=== PATIENT | female | born 1960 | race Caucasian/White ===

== ENCOUNTER 2020-01-26 14:45 | Observation (INO) | payer OTHER, SELFPAY ==
[2020-01-23 14:11] VITALS: BMI 28.1
[2020-01-26] VITALS (14 sets, daily range): BP systolic 106–142; BP diastolic 71–94; PULSE 82–108; RESP 14–19; TEMP 36.5–36.9; O2SAT 93–100
[2020-01-26] MEDS: lidocaine 1% INJ 20 mL INTRADERMA (09:32)
[2020-01-26] MEDS: sodium chloride 0.9% 1,000 ML 30 ML IV (09:32)
--- NOTE | 2020-01-26 10:18 | ANES.PREANE2 ---
Pre-Anesthetic Assessment Pre-Anesthetic Assessment: Height/Weight: Height 1.7 m Weight 81.647 kg Temp Pulse Resp BP Pulse Ox 97.7 F 82 18 106/72 100 01/26/20 08:47 01/26/20 08:47 01/26/20 08:47 01/26/20 08:47 01/26/20 08:47 Preop Diagnosis: Intervertebral disc disorder wih myelopathy Proposed Procedure: Operation Date: 01/26/20 10:00 Proposed Procedures p Anterior Cervical Discecotmy&Fusion C5-C6 vs C5-C6, C6-C7 42047 M50.020(Not Applicable) - Duarte Barba MD Familial anesthetic complications: none Was Beta Debi taken within 24 hours: N/A Last intake: Intake Last Liquid Date 01/25/20 Last Liquid Time 23:30 Last Solid Date 01/25/20 Last Solid Time 23:30 Social: Social History: No alcohol and No tobacco Exam: Pre-Anes Outpt Exam: alert, oriented x 3, clear to auscultation bilaterally and regular rate & rhythm Airway: Cervical ROM: WNL MP: 3 Additional comments: missing molars top Left Pulmonary: Pulmonary: Sleep apnea (CPAP) CV/HEM: CV/HEM: None reported : : None reported Hepatic: Hepatic: None reported GI: GI: None reported Metabolic: Metabolic: Thyroid Musc/skel: Musc/skel: OA/DJD (generalized) Neuropsych: Neuropsych: None reported Anesthetic Plan: ASA status: 2 Anesthesia: General Risk of > 500 ml blood loss (7ml/kg in children): No Meds/Allergies Current Medications: Current Medications Generic Name Dose Route Start Last Admin Trade Name Freq PRN Reason Stop Dose Admin Sodium Chloride 1,000 mls @ 30 ml s/hr 01/26/20 08:45 01/26/20 09:32 Sodium Chloride 0.9% IV 01/27/20 08:44 30 mls/hr .Q24H ANY Administration Lidocaine HCl 0.1 ml 01/26/20 08:40 01/26/20 09:32 Lidocaine 1% INTRADERMA 01/27/20 08:39 0.1 ml PRN PRN Administration anesthetic prior to IV start Data Anesthesia Cardiac Studies: No Data to Display
--- NOTE | 2020-01-26 10:19 | W.PM.OPSUD ---
Surgery/Procedure H&P Update DATE OF PROCEDURE: January 26, 2020 DATE H&P PERFORMED: 12/29/19 H&P UPDATE INFORMATION: I have reviewed H&P completed within last 30 days and H&P to be scanned into chart PREOP DIAGNOSIS: Intervertebral disc disorder wih myelopathy PRIMARY INDICATION FOR PROCEDURE: Pain PLANNED PROCEDURE: Operation Date: 01/26/20 10:00 Proposed Procedures Anterior Cervical Discectomy/Fusion/fixation C5-C6, C6-C7 30684 M50.020(Not Applicable) - Duarte Barba MD
--- NOTE | 2020-01-26 10:48 | PM.OP2 ---
 Brief Operative Note: Date of procedure: 01/26/20 Pre-op diagnosis: Intervertebral disc disorder with myelopathy Post-op diagnosis: same Procedure Done: C5-C7 ACDFF Surgeon: Duarte Barba Estimated blood loss (mL): 50 Complications: None Post-op Plan: PACU, then jones Condition: stable Disposition: PACU Coding Level of Care Code Acute Director Of Field Sales for Deandra Reddy
--- NOTE | 2020-01-26 11:03 | XR_ITS ---
WS: [id number] INDICATION: Intraoperative TECHNIQUE: Single lateral view of the cervical spine FINDINGS: Endotracheal tube. Localization marker anteriorly at C4-5 XR/XR cervical spine 1ort [id number] IMPRESSION: Images obtained for intraoperative purposes.
--- NOTE | 2020-01-26 11:20 | XR_ITS ---
WS: [id number] INDICATION: ACDF TECHNIQUE: Single lateral view of the cervical spine FINDINGS: Endotracheal tube. Localization device anteriorly at C6 XR/XR cervical spine [facility] [id number] IMPRESSION: Images obtained for intraoperative purposes
[2020-01-26] MEDS: thrombin 5,000 unit SDV 5000 UNIT XX (11:25)
--- NOTE | 2020-01-26 12:24 | SUR.OPER ---
Tick pulled from inside of pt's left thigh. Head was intact. Area cleaned with betadine. 1127 - Pt's , Maksim, notified of surgery start via his cell phone.
--- NOTE | 2020-01-26 13:29 | SUR.OPER ---
1329 - attempted to update allan. Unable to reach him at this time.
--- NOTE | 2020-01-26 13:39 | XR_ITS ---
WS: [id number] CERVICAL SPINE TECHNIQUE: 3 views of the cervical spine CLINICAL INFORMATION: AP/LAT Post op Fusion COMPARISON: January 26, 2020 FINDINGS: Straightening of the normal cervical lordosis. Anterior cervical interbody fusion C5-C7. Hardware tamela ears in good position. Mild facet arthropathy. XR/XR cervical spine 3V* [id number] IMPRESSION: Normal postoperative anterior cervical interbody fusion C5-C7
[2020-01-26] MEDS: fentaNYL 50 mcg/mL INJ 2mL IVP (14:17)
[2020-01-26] MEDS: HYDROcodone-acetaminophen 5-325 mg Tablet PO (15:18)
[2020-01-26] MEDS: lactated ringers 1,000 ML 90 ML IV (15:44)
[2020-01-26] MEDS: ketorolac 30 mg/mL INJ 15 MG IVP (15:44)
--- NOTE | 2020-01-26 16:00 | PM.DCS ---
Discharge Providers Date of Admission: 01/26/20 14:45 Date of Discharge: January 26, 2020 Attending Provider at Admission: Duarte Barba MD Attending Provider at Discharge: Duarte Barba MD Primary Care Provider: Stephan Tovar MD Diagnoses at Discharge Discharge Diagnosis (1) Cervical disc disorder with myelopathy of mid-cervical region: Status: Acute (2) Instability of joint: Status: Acute Reason for Visit Reason for Visit: Reason For Visit: Cervical disc disorder with myelopathy of mid-cerv Brief History: The patient is a 59-year-old female with symptomatic, radiographically confirmed cervical disc/joint disease and associated neural impingement. Imaging studies demonstrated dominant abnormalities at C5-C6 and C6-C7. Conservative management did not provide adequate lasting symptom relief. After review of the diagnostic and treatment options with the risks/potential benefits/rationale for each, the patient requested to proceed with surgical intervention. Hospital Course Hospital Course: The patient underwent C5-C7 ACDFF on 01/26/2020. She tolerated the procedure well. She reported improvement in preoperative symptoms following surgery. She completed perioperative intravenous antibiotic doses, and the physical therapy postoperative spine protocol. She was ambulatory, voiding, and tolerating diet prior to discharge home on the evening of the date of surgery. Physical Exam Const: COMMON NORMALS: no apparent distress and alert GENERAL APPEARANCE: cooperative and comfortable HENMT: COMMON NORMALS: normocephalic HEAD & SCALP: normocephalic Eye: ALIGNMENT: Yes alignment normal Neck/C-Spine: COMMON NORMALS: supple and no JVD GENERAL: Yes trachea midline CERVICAL SPINE: Yes collar present Resp: COMMON NORMALS: normal respiratory effort EFFORT & INSPECTION: Yes able to speak in complete sentences, No tachypneic and No respiratory distress Cardio: COMMON NORMALS: no JVD Extremity: COMMON NORMALS: no clubbing, cyanosis or edema Neuro: COMMON NORMALS: moves all extremities and no focal motor deficits SENSORIUM/ORIENTATION: Yes alert SPEECH: speech normal Psych: COMMON NORMALS: mental status grossly normal and speech normal ATTITUDE: Yes calm and Yes engaged ACTIVITY/MOTOR BEHAVIOR: Yes appropriate eye contact SPEECH: Yes normal speech MOOD & AFFECT: Yes euthymic mood ATTENTION/CONCENTRATION: Yes attention grossly intact Skin: WOUNDS: Yes surgical site (Left anterolateral neck surgical site without erythema or active drainage. Surgical site dressing clean/dry/intact.) Urinary Catheter Management^: Heart: Cath Placed During This Visit: yes, but has since been removed by the nurse Urinary Catheter Date of Insertion: 01/26/20 Urinary Catheter Time of Insertion: 11:15 Date Urinary Catheter Removed: 01/26/20 Time Urinary Catheter Discontinued: 13:36 Discharge Data Data Completed and Pending: Completed Studies During Hospitalization Category Date Time Status XR cervical spine 1Vport 29994 Rout ine Exams 01/26/20 11:03 Completed XR cervical spine 1Vport 34429 Rout ine Exams 01/26/20 11:20 Completed XR cervical spine 3V* [id number] Routine Exams 01/26/20 13:39 Completed Pathology: Surgic al [PTH] Routine Pth 01/26/20 12:29 Completed Imaging^: Other Xray: Radiologist's impression: CERVICAL SPINE TECHNIQUE: 3 views of the cervical spine FINDINGS: Straightening of the normal cervical lordosis. Anterior cervical interbody fusion C5-C7. Hardware appears in good position. Mild facet arthropathy. Procedures Performed: C5-C6, C6-C7 anterior cervical discectomy/fusion/fixation. Intravenous antibiotics. Physical therapy. Vitals: Last Vital Signs Temp 98.0 F 01/26/20 19:39 Pulse 85 01/26/20 19:39 Resp 17 01/26/20 19:39 BP 113/72 01/26/20 19:39 Pulse Ox 95 01/26/20 19:39 Discharge Plan Discharge Patient Disposition: Home, Self-Care Condition: Good Prescriptions: [place] 7.5-325 mg tablet 1 tab PO Q4H PRN (Reason: pain) Qty: 30 RF: 0 No Action No Known Home Medications RF: 0 Discharge Orders: Discharge Order (Routine); Ordered 01/26/20 Ordered By: Duarte Barba Referrals: Duarte Barba MD [Physician] - 2 weeks (Please call Dr. Nelson office to schedule a post surgical followup to be seen in 2 weeks. [phone]) Discharge Diet: Advance as tolerated Discharge Activity: Limit activity as instructed and As per PT/OT instructions Patient Instructions: Hydrocodone/Acetaminophen (By mouth), Anterior Cervical Discectomy (DC) Activity Restrictions/Additional Instructions: Activity -Cervical fusion: Wear cervical collar 24 hours a day. Change as necessary for showering, shaving, or if it becomes soiled. -No lifting or reaching overhead. - No driving until office followup visit - No lifting/pushing/pulling over 10 pounds - Avoid twisting or bending - Walking is encouraged - Home exercise per physical therapist - You may engage in sexual intercourse at any time as long as it is comfortable for you - Check with your doctor before returning to work. Notify your doctor if you develop: - temperature of 101.5 degrees F. or higher - redness or swelling of the incision - Foul drainage - increasing pain - increasing numbness or tingling in the arms or legs - New or increasing problems with vision, balance, memory, speaking, nausea or vomiting Hygiene: - Showering is okay - No tub baths or soaking Other: Remove outer bandage 3 days after surgery. If you have paper strips, leave in place until they fall off on their own. If you have stitches, keep your incision dry until the stitches are removed. Your doctor's office is available to answer any questions from 7 AM to 5:00 PM, Sunday through at [phone]. After hours, go to the emergency room at [facility] or call 911 for assistance. Discharge Date/Time: 01/26/20 19:40 Discharge Attestations Time Spent in Discharge Care*: other (Postop global) Quality Metrics Clinical Quality Measures During this hospital stay, did patient experience: None Coding Level of Care Code Acute Air Pollution Inspector for Deandra Fwd Exam Comprehensive Diagnoses Cervical disc disorder with myelopathy of mid-cervical region M50.020 Instability of joint M25.30 Comment Postop global
--- NOTE | 2020-01-26 16:51 | PC.NURSE ---
FLU SHOT PT WANTED FLU SHOT THIS YEAR SO WAS GIVEN FLU SHOT IN RIGHT DELTOID.
--- NOTE | 2020-01-26 16:57 | PM.OP ---
Operative Report Date of procedure: January 26, 2020 Pre-op Diagnosis: Intervertebral disc disorder wih myelopathy Post-op diagnosis: same (With instability of joint) Procedure Done: 1. C5-C6, C6-C7 anterior cervical discectomy, with osteophytectomy. 2. C5-C6, C6-C7 anterior cervical plate/screw fixation. 3. C5-C6, C6-C7 placement of intervertebral prosthetic devices. 4. C5-C6, C6-C7 anterior cervical fusion utilizing augmented, morselized autograft obtained from osteophytectomy. Implants: ACIS ProTi Spacers. [employer] Vectra plate/screws. [employer] Moldable Demineralized Fibers. Specimens removed/disposition: C5-C6, C6-C7 disc Pathology: Disc fragments Surgeon: Duarte Barba Anesthesia: General Estimated blood loss (mL): 50 IV fluids (mL): 600 Urine output (mL): 400 Complications: None. Condition: stable Disposition: PACU Brief History: The patient is a 59-year-old female with symptomatic, radiographically confirmed cervical disc/joint disease and associated neural impingement. Imaging studies demonstrated dominant abnormalities at C4-C5 and C5-C6. Conservative management did not provide adequate lasting symptom relief. After review of the diagnostic and treatment options with the risks/potential benefits/rationale for each, the patient requested to proceed with surgical intervention. Procedure: After routine preoperative evaluation and informed consent were obtained, the patient was taken to the Operating Room and positioned supine on the OR table. She was placed under general endotracheal anesthesia by Anesthesia personnel, and fit in the [facility] tongs for the application of in-line cervical traction. The anterolateral neck on the left was prepared with hair clippers. A proposed transverse skin incision was marked with a sterile skin marker, utilizing intraoperative radiography and regional anatomy for localization. The area was scrubbed with Betadine, prepped with DuraPrep, and draped with sterile towels and drapes. [place] surgical barrier was applied. The proposed incision site was infiltrated with 1% Xylocaine with Epinephrine. A skin incision was made and carried down into the subcutaneous tissues. The platysma was identified and divided in the direction of its fibers. A plane was dissected just medial to the carotid sheath and lateral to the midline esophagus and trachea. Prevertebral soft tissues were bluntly dissected free of the anterior margin of the cervical spine. Longus coli muscles were freed from their medial attachments. Deep self-retaining retractors were placed. Intraoperative radiography verified the desired surgical levels. The C5-C6 and C6-C7 interspaces were sequentially incised with a #11 blade. Discectomies were accomplished utilizing various curettes and pituitary rongeurs. Anterior marginal osteophytes were resected with the [place] and Kerrison rongeurs. Cartilaginous end plates were stripped free with curettes. Posterior marginal osteophytes were resected with thin foot plate Kerrison rongeurs. The medial aspect of each neural foramen was enlarged in a similar manner. Posterior longitudinal ligament was divided and resected as necessary to further the decompression. Symmetrical neural impingement was identified at C5-C6, with dominant C6-C7 abnormalities noted on the left. Once the decompressions were felt to be adequate at both levels, the disc spaces were sized. A 7 mm ACIS ProTi lordotic/medium Spacer was chosen for C5-C6. Another Spacer of the same size and configuration was chosen for C6-C7. The Spacers were packed with morselized autograft obtained from the osteophytectomy portions of the procedure. [employer] moldable demineralized fibers were utilized to augment the morselized autograft allowing complete filling of the prosthetic devices. The Spacers were sequentially placed within the C5-C6 and C6-C7 interspaces, while in-line cervical traction was applied via the Zhang-Wells tongs. Once the Spacers were felt to be in good position, a [employer] Vectra plate of the desired size was chosen. The plate was secured to the C5, C6, and C7 vertebral bodies with bilateral 4 mm x 14 mm self-drilling screws. Final screw tightening was performed, and the locking mechanisms within the plate were noted to engage the screws at each site. The construct was inspected and felt to be in good position and secure. The wound was copiously irrigated with sterile saline and antibiotic irrigation. Hemostasis was ensured with the bipolar electrocautery and S[employer]lo hemostatic matrix. Wound closure was performed in multiple layers with 2-0 Vicryl Plus simple interrupted closure of the platysma and deep dermis as separate layers. Final skin closure was performed with 4-0 Vicryl Plus in a running subcuticular pattern. Steri-Strips were applied, and a sterile dressing was placed. The patient was released from the Zhang-Wells tongs and fit in a [place] collar. She was transferred onto the Recovery Room cart in the supine position. She was extubated without incident. The patient tolerated the procedure well. All sponge, needle, and instrument counts were correct at the completion of the procedure.
[2020-01-26] MEDS: docusate sodium 100 mg Capsule PO (18:05)
--- NOTE | 2020-01-26 19:15 | PC.NURSE ---
DISCHARGE Patient was given discharge orders before this nurse arrived on shift, IV antibiotics finished at this time. IV discontinued and in room helping patient get dressed.
--- NOTE | 2020-02-09 12:44 | XR_ITS ---
WS: [id number] CERVICAL SPINE 2 VIEWS HISTORY: s/p cervical spinal fusion COMPARISON: 01/26/2020 Anterior cervical fusion hardware extends from C5 through C7. Interbody spacers at C5-6 and C6-7 with no fusion at this time. No subsidence. No complications. Disc spaces and vertebral body heights are well-maintained. Soft tissues are normal.
== END 2020-01-26 19:40 | disposition home or self-care (01) ==
LOC: MEDSURG 14:46
PROVIDERS: Admitting Provider Specialist; Family Provider Family Medicine; PCP Family Medicine; Visit Provider Specialist
PROC: 0RB30ZZ Excision of Cervical Vertebral Disc, Open Approach (ICD-10-PCS; CPT 22551; principal; 2020-01-26 09:55)
DX: M50.822 Other cervical disc disorders at C5-C6 level (principal); E03.9 Hypothyroidism, unspecified; E11.9 Type 2 diabetes mellitus without complications; Z79.4 Long term (current) use of insulin; G47.33 Obstructive sleep apnea (adult) (pediatric); E66.9 Obesity, unspecified; G47.10 Hypersomnia, unspecified; F32.9 Major depressive disorder, single episode, unspecified; F41.9 Anxiety disorder, unspecified; M19.90 Unspecified osteoarthritis, unspecified site
CPT/HCPCS: 22551; 22552; 22853 ×2; 12345; 51702; 72020; 72040; 88304; 90471; 90686; 96375; 97161; C1713; G0378; J0690; J1100; J1885; J2001; J2370; J2405; J2704; J3010; J3490; J7030; L0172

== ENCOUNTER 2020-02-09 12:36 | Outpatient (CLI) | payer OTHER, SELFPAY ==
--- NOTE | 2020-02-09 13:48 | XR_ITS ---
WS: [id number] CERVICAL SPINE 2 VIEWS HISTORY: s/p cervical spinal fusion COMPARISON: 01/26/2020 Anterior cervical fusion hardware extends from C5 through C7. Interbody spacers at C5-6 and C6-7 with no fusion at this time. No subsidence. No complications. Disc spaces and vertebral body heights are well-maintained. Soft tissues are normal. XR/XR cervical spine 3V* [id number] IMPRESSION: Intact and stable anterior cervical fusion with interbody spacers from C5 to C7 .
== END 2020-02-09 12:37 | disposition home or self-care (01) ==
LOC: RADWPI 12:38
PROVIDERS: Family Provider Family Medicine; PCP Family Medicine; Visit Provider Specialist
DX: Z98.1 Arthrodesis status (principal); M43.22 Fusion of spine, cervical region
CPT/HCPCS: 72040

== ENCOUNTER 2020-03-08 15:09 | Outpatient (CLI) | payer OTHER, SELFPAY ==
--- NOTE | 2020-03-08 15:13 | XR_ITS ---
WS: [id number] CERVICAL SPINE 2 VIEW HISTORY: s/p cervical spinal fusion. COMPARISON: 02/09/2020 Anterior cervical fusion at C5-C7. Hardware and interbody spacers remains in good position with no in terval change. No subsidence. No lucency around the hardware. XR/XR cervical spine 3V* [id number] IMPRESSION: Anterior cervical fusion at C5-C7 with interbody spacers is stable.
== END 2020-03-08 15:10 | disposition home or self-care (01) ==
LOC: RADWPI 15:11
PROVIDERS: Family Provider Family Medicine; PCP Family Medicine; Visit Provider Licensed Practical Nurse
DX: Z98.1 Arthrodesis status (principal); M43.22 Fusion of spine, cervical region
CPT/HCPCS: 72040

== ENCOUNTER 2020-03-22 13:15 | Outpatient (CLI) | payer OTHER, SELFPAY ==
--- NOTE | 2020-03-22 13:30 | CT_ITS ---
WS: [id number] CT cervical spin wo con* [id number] REASON FOR EXAM: s/p cervical spinal fusion IV CONTRAST ADMINISTERED: none TOTAL EXAM DLP: 646.[address] scans at [facility] use at least one of these dose optimization techniques: automat ed exposure control; mA and/or kV adjustment per patient size (includes targeted exams where dose is matched to clinical indication); or iterative reconstruction. FINDINGS: The left occipital patellar suggesting a remote fracture. This healing good alignment. The odontoid process was normal. C1-C2 :Normal anatomical findings. C2-C3 shows mild hypertrophy of the uncovertebral joint on the right exiting foramina were normal no fractures no disc bulge or herniation. C3-C4 shows hypertrophy of the right uncovertebral joint no foraminal stenosis no disc bulge or herni ation. No fractures. C4-C5: Normal vertebral alignment. Exiting foramina normal. No disc bulge or herniation. No spinal st enosis. Anterior fusion C5-C6-C7 with intraspinal fusion. No fractures are seen. C7-T1 normal vertebral alignment. Exiting foramina normal. No disc bulge or herniation. No spinal coleman nosis. CT/CT cervical spin wo con* [id number] IMPRESSION: A remote fracture is suspected along the occipital fibular on the left this is in good alignment. Degenerated of arthritis with uncovertebral C2-C3, C3-4 Stable fusion anteriorly C5-C6-C7. No fractures of the cervical spine recent.
== END 2020-03-22 13:16 | disposition home or self-care (01) ==
LOC: RAD 13:17
PROVIDERS: PCP Family Medicine; Visit Provider Licensed Practical Nurse
DX: Z98.1 Arthrodesis status (principal); M43.22 Fusion of spine, cervical region
CPT/HCPCS: 72125

== ENCOUNTER → 2020-08-18 14:08 | Outpatient (BNVA) | payer OTHER, SELFPAY | PROVIDERS: PCP Family Medicine; Referring Provider Family Medicine; Visit Provider Orthopaedic Surgery | DX: M17.12 Unilateral primary osteoarthritis, left knee (principal); Z96.651 Presence of right artificial knee joint | CPT/HCPCS: 73560; 73565 ==

== ENCOUNTER → 2020-09-29 11:11 | Day surgery (SDC) | payer OTHER, SELFPAY ==
[2020-09-29 11:25] VITALS: BMI 28.1
--- NOTE | 2020-09-29 13:04 | ANES.PREANE2 ---
Pre-Anesthetic Assessment Pre-Anesthetic Assessment: Height/Weight: Height 1.7 m Weight 81.647 kg Preop Diagnosis: Intervertebral disc disorder wih myelopathy Proposed Procedure: Operation Date: 10/04/20 12:10 Proposed Procedures p Total Knee Arthroplasty 00698 M17.12(Left) - Juan Lubin MD Was Beta Debi taken within 24 hours: N/A Social: Social History: No alcohol and No tobacco Exam: Pre-Anes Outpt Exam: alert, oriented x 3, clear to auscultation bilaterally and regular rate & rhythm Airway: Submandibular: WNL Cervical ROM: WNL MP: 2 Dentition: Full Pulmonary: Pulmonary: None reported CV/HEM: CV/HEM: None reported : : None reported Hepatic: Hepatic: None reported GI: GI: None reported Metabolic: Metabolic: None reported Musc/skel: Comments: Knee pain Neuropsych: Neuropsych: Depression Anesthetic Plan: ASA status: 2 Anesthesia: Regional (specify below) Other: SAB with adductor canal blk Risk of > 500 ml blood loss (7ml/kg in children): Yes, adequate IV access and fluids planned PFSH Anesthesia PFSH: Medical History Cervical disc disorder with myelopathy of mid-cervical region Instability of joint Post-operative state Surgical History History of cervical spinal surgery (~2019) 01/26/2020 Dr. Lauren Barba. 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
[2020-10-04 11:40] VITALS: BP 141/84; PULSE 72; RESP 18; TEMP 36.4; O2SAT 98
[2020-10-04] MEDS: sodium chloride 0.9% 1,000 ML 30 ML IV (12:34)
[2020-10-04] MEDS: oxyCODONE 20 mg ER (12 HR) Tablet PO (12:35)
[2020-10-04] MEDS: CELEcoxib 200 mg Capsule PO (12:36)
[2020-10-04] MEDS: acetaminophen 500 mg Tablet 1000 MG PO (12:36)
[2020-10-04] MEDS: gabapentin 300 mg Capsule PO (12:36)
--- NOTE | 2020-10-04 12:37 | P.ANESUD_ITS ---
Pre-Anesthetic Update Pre-Anesthetic Assessment: Date of Surgery/Procedure: 10/04/20 Preop Lucía gnosis: Osteoarthritis left knee Proposed Procedure: Operation Date: 10/04/20 12:10 Proposed Procedures p Total Knee Arthroplasty 70071 M17.12(Left) - Juan Lubin MD Any changes to Pre-Anesthetic Assessment?: No Last Intake: Intake Last Liquid Date 10/03/20 Last Liquid Time 23:00 Last Solid Date 10/03/20 Last Solid Time 23:00 Vitals: Temperature 97.5 F L 10/04/20 11:40 Temperature Source Temporal Artery S can 10/04/20 11:40 Pulse Rate 72 10/04/20 11:40 Pulse Rhythm 10/04/20 11:41 Pulse Strength 3+ Normal 10/04/20 11:41 Respiratory Rate 18 10/04/20 11:40 Blood Pressure 141/84 10/04/20 11:40 Blood Pressure Lori n 103 10/04/20 11:40 Pulse Oximetry 98 10/04/20 11:40 Oxygen Delivery Me thod 10/04/20 11:41 Exam: Pre-Anes Outpt Exam: alert, oriented x 3, clear to auscultation bilaterally and regular rate & rhythm Cardiac Studies: No Data to Display
--- NOTE | 2020-10-04 14:48 | SUR.OPER ---
Dr Lubin into talk with patient and family. Surgery to be cancelled due to no post op floor beds.Patient agrees to return tomorrow 05:30am for re scheduled surgery. IV dc'ed and patient left ambulatory with family.
== END ==
PROVIDERS: PCP Family Medicine; Visit Provider Orthopaedic Surgery
PROC: (CPT 27447; principal; 2020-10-04 11:40)
DX: Z01.818 Encounter for other preprocedural examination (principal); M17.12 Unilateral primary osteoarthritis, left knee
CPT/HCPCS: 64450; 87635; J2250; J2370; J2405; J2704; J2795; J3490; J7030

== ENCOUNTER 2020-10-05 15:13 | Observation (INO) | payer OTHER, SELFPAY ==
[2020-10-05] VITALS (14 sets, daily range): BP systolic 107–126; BP diastolic 68–84; PULSE 64–90; RESP 11–30; TEMP 36.1–36.5; O2SAT 76–99; BMI 28.1
[2020-10-05] MEDS: acetaminophen 500 mg Tablet 1000 MG PO (06:16)
[2020-10-05] MEDS: CELEcoxib 200 mg Capsule 400 MG PO (06:16)
[2020-10-05] MEDS: gabapentin 300 mg Capsule PO (06:16)
[2020-10-05] MEDS: lidocaine 1% INJ 20 mL INTRADERMA (06:17)
[2020-10-05] MEDS: sodium chloride 0.9% 1,000 ML 30 ML IV (06:17)
[2020-10-05] MEDS: oxyCODONE 20 mg ER (12 HR) Tablet PO (06:17)
--- NOTE | 2020-10-05 06:50 | W.PM.OPSFHP ---
Same Day Surgery H&P Indication for Procedure/HPI DATE OF PROCEDURE: October 05, 2020 CHIEF COMPLAINT/INDICATIONFOR SURGICAL PROCEDURE: 60-year-old female with osteoarthritis of the left knee. She had a distant history of a right total knee arthroplasty and did well. She has ongoing left knee pain that has been resistant to conservative care including physical therapy, anti-inflammatories, and injections.. She is admitted for elective left total knee arthroplasty to improve pain and function. Her is a physical therapist here at the hospital. PREOP DIAGNOSIS: Osteoarthritis left knee PLANNED PROCEDRUE: Operation Date: 10/05/20 07:30 Proposed Procedures p Total Knee Arthroplasty 82166, M17.12(Left) - Juan Lubin MD Medications/Allergies* Home Medications Medication Instructions Recorded Confirmed Type escitalopram oxalate 20 mg tablet 20 mg PO DAILY 08/18/20 10/05/20 History Allergies/Adverse Reactions Allergy/AdvReac Type Severity Reaction Status Date / Time Penicillins Allergy Intermediate rash Verified 09/29/20 11:30 morphine AdvReac Intermediate can't void Verified 09/29/20 11:30 promethazine [From Phenergan] AdvReac Intermediate vomiting Verified 09/29/20 11:30 Current Medications: Generic Name Dose Route Start Last Admin Trade Name Freq PRN Reason Stop Dose Admin Sodium Chloride 1,000 mls @ 30 mls/hr 10/05/20 06:00 10/05/20 06:17 Sodium Chloride 0.9% IV 30 mls/hr .Q24H ANY Administration Pertinent History/Comorbid Conditions* Medical History (Updated 03/13/20 @ 17:34 by Paloma Mcgill APRN) Cervical disc disorder with myelopathy of mid-cervical region Instability of joint Post-operative state Surgical History (Updated 03/13/20 @ 17:47 by Paloma Mcgill APRN) History of cervical spinal surgery (~2019) 01/26/2020 Dr. Lauren Barba. 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
--- NOTE | 2020-10-05 07:04 | P.ANESUD_ITS ---
Pre-Anesthetic Update Pre-Anesthetic Assessment: Date of Surgery/Procedure: 10/05/20 Preop Lucía gnosis: Osteoarthritis left knee Proposed Procedure: Operation Date: 10/05/20 07:30 Proposed Procedures p Total Knee Arthroplasty 12437, M17.12(Left) - Juan Lubin MD Any changes to Pre-Anesthetic Assessment?: No Last Intake: Intake Last Liquid Date 10/04/20 Last Liquid Time 23:00 Last Solid Date 10/04/20 Last Solid Time 23:00 Vitals: Temperature 97.7 F 10/05/20 05:54 Temperature Source Temporal Artery S can 10/05/20 05:54 Pulse Rate 67 10/05/20 05:54 Pulse Rhythm 10/05/20 05:47 Pulse Strength 3+ Normal 10/05/20 05:47 Respiratory Rate 18 10/05/20 05:54 Blood Pressure 116/75 10/05/20 05:54 Blood Pressure Lori n 88 10/05/20 05:54 Pulse Oximetry 95 10/05/20 05:54 Oxygen Delivery Me thod 10/05/20 05:54 Exam: Pre-Anes Outpt Exam: alert, oriented x 3, clear to auscultation bilaterally and regular rate & rhythm Cardiac Studies: No Data to Display
--- NOTE | 2020-10-05 07:40 | ANES.PROC ---
Anesthesia Procedures Procedure/Date: 10/05/20 Nerve Block ^: Nerve Block 1: Main Anesthesia: spinal anesthesia block Time Out Performed: Yes Consent: requested by attending/covering physician, risks and benefits reviewed and patient agrees to proceed Nerve block location: adductor canal Anesthesia monitors applied: pulse oximetry, EKG, BP cuff and oxygen Nerve block position: supine Anesthetic Used: ropivicaine 0.5% Amount of anesthesia used (mL): 20 Ultrasound used to: recognize landmarks Nerve Stimulator Used?: No Interscalene/Femoral BLK: 4 stimuplex 21 g needle used for position and inplane approach Patient Tolerated Procedure: well Complications: none
[2020-10-05] MEDS: EPINEPHrine 1 mg/mL INJ XX (07:54)
[2020-10-05] MEDS: ketorolac 30 mg/mL INJ IM (07:54)
--- NOTE | 2020-10-05 09:22 | XRR_ITS ---
PROCEDURE INFORMATION: Exam: XR Left Knee Exam date and time: 10/05/2020 9:35 AM Age: 60 years old Clinical indication: Device placement; Joint replacement hardware; Patient HX: Left total knee arthroplasty post op TECHNIQUE: Imaging protocol: XR Left knee. Views: 1 or 2 views. COMPARISON: CR XR knees AP WB w BI lmt ORTH 08/18/2020 2:14 PM FINDINGS: Bones/joints: The patient has undergone recent insertion of a total knee prosthesis. Gas is present in the soft tissues from the recent surgery. No fractures are seen. The position and alignment appears satisfactory. Soft tissues: See Bones/joints finding. XR/XR knee LT 1-2V [id number] IMPRESSION: Satisfactory appearance of the total knee prosthesis.
[2020-10-05] MEDS: meperidine 50 mg/mL INJ IVP (09:23)
--- NOTE | 2020-10-05 09:25 | PM.OP ---
Operative Report Date of procedure: October 05, 2020 Pre-op Diagnosis: Osteoarthritis left knee Post-op diagnosis: same Post-op Findings: Same Procedure Done: Left total knee arthropod Pathology: none sent Surgeon: Juan Lubin Anesthesia: Nerve Block (Spine) Estimated blood loss (mL): 200 Findings: The patient had severe eburnation over the medial femoral condyle medial tibial plateau and patella Condition: stable Disposition: PACU Procedure: The patient was taken to the operating room. Patient was given 1 g of tranexamic acid . The above anesthesia provided by the anesthesia service. A timeout was performed. The patient was prepped and draped in the usual fashion with the lower extremity exposed. A anterior incision was made, midline, from a point proximal to the patella to the distal tibial tubercle. The knee was entered through a medial parapatellar approach. The patella could be displaced laterally and the knee flexed. The patellar fat pad was resected to provide better visibility. Retractors were placed medially and laterally adjacent to the tibial plateau. The femoral canal was drilled in line with the longitudinal axis of the femur. Intramedullary femoral guide for used to make a distal femoral cut in 5 degrees of valgus, resecting 8 mm from the more prominent condyle. Next the extra medullary tibial guide was placed in alignment with the longitudinal axis of the tibia. The cutting guides were set to remove just over 9 mm from the high tibial plateau. The proximal tibia was then cut. The femoral measuring guide was then placed over the distal femur. Rotation was verified checking the relationship of the guide to the condyle and the trochlear groove. The femur was measured and cut for the desired femoral component. The desired tibial baseplate was then chosen. A trial reduction with the femur tibial baseplate and polyethylene was done, assuring that the knee was stable throughout full motion. Ligament balancing nothing more than a release of the deep medial collateral ligament and medial osteophytes.The tibia was prepared for the tibial baseplate. Patellar thickness was then measured. The patella was cut removing articular cartilage and prepared for appropriate size patellar button. All surfaces were cleaned with pulsatile lavage. The femur tibia and patella were then press-fit into place. The posterior capsule and collateral ligaments were then injected with a solution of 100 mL of 0.2% ropivacaine, 1 mL of a 1:1000 epinephrine solution, and 30 mg of Toradol. Final polyethylene component was then snapped into place into the tibia. 2 grams of tranexamic acid were applied to the wound. The tourniquet was deflated. The tranxanemic acid was left contact with the knee for 5 minutes before the knee was irrigated with saline. The extensor retinaculum was closed with 1 STratafix Quill. The subcutaneous tissues were closed with 2-0 Vicryl and the skin was closed with running 3 oh Stratafix Quil. A compressive tube gauze was applied.. The patient was taken to recovery room in stable condition. [employer] total knee arthroplasty components were used includin) Size 5 Triathalon cruciate retaining femoral component 2) Size 5 Tritanium tibial component 3) 32 mm /10 mm thickness Tritanium asymetric patella 4) Size 5/9 mm thickness CR tibial bearing insert
--- NOTE | 2020-10-05 09:30 | ANE.PACU2 ---
Inpatient post-anesthesia follow up: Airway intact: Yes Vital signs: Temperature 97.1 F Pulse Rate 77 Respiratory Rate 16 Blood Pressure 123/82 Pulse Oximetry 97 Oxygen Delivery Me thod Room Air Oxygen Flow Rate Fraction of Inspir ed Oxygen Hydration adequate: Yes Nausea and vomiting: No Pain level: 1 Additional Comments: sedated
--- NOTE | 2020-10-05 10:05 | SUR.PHASEII ---
holding patient until room available. Patient is to be in observartion then go home later today.
--- NOTE | 2020-10-05 11:03 | PC.OT ---
PER DISCUSSION WITH SPOUSE AND PATIENT, SHE IS INDEPENDENT WITH ADLS AND DOES NOT REQUIRE FURTHER SKILLED OT.
[2020-10-05] MEDS: ondansetron 2 mg/ML SDV 2 mL 4 MG IVP (12:13)
--- NOTE | 2020-10-05 13:53 | PM.DCS ---
Discharge Providers Date of Discharge: October 05, 2020 Attending Provider at Discharge: Juan Lubin MD Primary Care Provider: Stephan Tovar MD Diagnoses at Discharge Discharge Diagnosis (1) Status post left knee replacement: Status: Acute (2) Osteoarthritis of left knee: Status: Acute Reason for Visit Reason for Visit: Brief History: Elective left total knee arthroplasty Hospital Course Hospital Course The patient is a 60-year-old female who underwent elective left total knee arthroplasty on 10/05/2020. The day of surgery she did very well. She was up independent without therapy. She was begun on aspirin for deep venous thromboses. She remained hemodynamically stable and was tolerating a good oral diet. She was discharged home. Her is a physical therapist will assist with her rehab. Physical Exam Narrative: EXAM NARRATIVE: On the day of discharge his knee incision was clean. They had no drainage. There is minimal swelling in the thigh and knee and the calf. No distal neurovascular deficits were noted Discharge Data Data Completed and Pending: Completed Studies During Hospitalization Category Date Time Status XR knee LT 1-2V 7 3560 Routine Exams 10/05/20 09:22 Completed Pending at discharge Category Date Time Status Hemoglobin AM LAB S Lab 10/06/20 04:00 Ordered Vitals: Last Vital Signs Temp 97.7 F 10/05/20 12:31 Pulse 66 10/05/20 12:31 Resp 18 10/05/20 12:31 BP 107/68 10/05/20 12:31 Pulse Ox 96 10/05/20 12:31 Discharge Plan Discharge Patient Disposition: Home Condition: Stable Prescriptions: New oxycodone 5 mg Tablet 5 mg PO Q4H PRN (Reason: Moderate Pain) 7 Days Qty: 40 RF: 0 aspirin 325 mg Tablet,Delayed Release (Dr/Ec) 325 mg PO DAILY 30 Days Qty: 30 RF: 0 celecoxib 200 mg Capsule 200 mg PO Q12H 15 Days Qty: 30 RF: 0 gabapentin 300 mg Capsule 300 mg PO BID 15 Days Qty: 30 RF: 0 Continued escitalopram oxalate [Lexapro] 20 mg tablet 20 mg PO DAILY RF: 0 Discontinued mupirocin 2 % ointment 1 applic topical BID Qty: 22 RF: 0 Discharge Orders: Discharge Order (Routine); Ordered 10/05/20 Ordered By: Juan Lubin Referrals: Juan Lubin MD [Physician] - 2 weeks Discharge Diet: Advance as tolerated Discharge Activity: Limit activity as instructed Activity Restrictions/Additional Instructions: Discontinue knee dressing in 48 hours. Replaced dressings as needed. Okay to begin showering in 48 hours. Keep Tubigauze sleeve in place for swelling Apply FirstIce up to 20 min/hr for pain and swelling Take Celebrex twice a day for the next 15 days for pain , discontinue other anti-inflammatories Take Neurontin twice a day for 15 days. Take Tylenol 325mg (up to 3 tabs) 3 times a day for mild pain take oxycodone for breakthrough pain. Exercises per physical therapy. May weight-bear as tolerated on total knee arthroplasty Discharge Attestations Time Spent in Discharge Care*: other Quality Metrics Clinical Quality Measures During this hospital stay, did patient experience: None Coding Level of Care Code Acute Assembler Convertible Top for Deandra Reddy Diagnoses Status post left knee replacement Z96.652 Osteoarthritis of left knee M17.12
== END 2020-10-05 17:04 | disposition home or self-care (01) ==
LOC: MEDSURG 15:14
PROVIDERS: Admitting Provider Orthopaedic Surgery; PCP Family Medicine; Visit Provider Orthopaedic Surgery
PROC: (CPT 27447; principal; 2020-10-05 07:00)
DX: M17.12 Unilateral primary osteoarthritis, left knee (principal)
CPT/HCPCS: 27447; 12345; 73560; 96361; 96365; 96372; 96375; C1776; G0378; J0171; J0690; J1580; J1885; J2175; J2405; J2795; J7030

== ENCOUNTER → 2020-11-16 14:22 | Outpatient (BNVA) | payer OTHER, SELFPAY | PROVIDERS: PCP Family Medicine; Visit Provider Orthopaedic Surgery | DX: Z47.1 Aftercare following joint replacement surgery (principal); Z96.652 Presence of left artificial knee joint | CPT/HCPCS: 73560; 73565 ==

== ENCOUNTER → 2020-12-14 15:09 | Outpatient (BNVA) | payer OTHER, SELFPAY | PROVIDERS: PCP Family Medicine; Visit Provider Orthopaedic Surgery | DX: Z48.89 Encounter for other specified surgical aftercare (principal); Z96.652 Presence of left artificial knee joint; M17.12 Unilateral primary osteoarthritis, left knee | CPT/HCPCS: 73560; 73565 ==

== ENCOUNTER 2021-03-19 13:01 | Outpatient (CLI) | payer OTHER, SELFPAY ==
--- NOTE | 2021-03-19 13:55 | XRR_ITS ---
PROCEDURE INFORMATION: Exam: XR Right Femur Exam date and time: 03/19/2021 1:55 PM Age: 60 years old Clinical indication: Pain; Thigh; Right; Patient HX: Fracture femur 10 years ago; Additional info: Right leg pain TECHNIQUE: Imaging protocol: XR Right femur. Views: 2 views. COMPARISON: No relevant prior studies available. FINDINGS: Bones/joints: There is chronic contour abnormality and callus formation in the femoral diaphysis consistent with an old healed fracture. Total knee replacement. There are small marginal osteophytes across the right hip joint. Mild narrowing of the right hip joint space. Soft tissues: Unremarkable. XR/XR femur RT min 2V* [id number] IMPRESSION: 1. There are degenerative changes across the right hip as described above. 2. Old healed femoral diaphysis fracture.
== END 2021-03-19 13:02 | disposition home or self-care (01) ==
PROVIDERS: PCP Family Medicine; Visit Provider Family Medicine
DX: M79.604 Pain in right leg (principal); Z87.39 Personal history of other diseases of the musculoskeletal system and connective tissue
CPT/HCPCS: 73552

== ENCOUNTER → 2021-07-03 10:20 | Outpatient (BNVA) | payer OTHER, SELFPAY | PROVIDERS: PCP Family Medicine; Visit Provider Nurse Practitioner | DX: R39.9 Unspecified symptoms and signs involving the genitourinary system (principal); N39.0 Urinary tract infection, site not specified | CPT/HCPCS: 81000 ==

== ENCOUNTER → 2021-07-08 12:17 | Outpatient (BNVA) | payer OTHER, SELFPAY | PROVIDERS: PCP Family Medicine; Visit Provider Registered Nurse Neonatal Intensive Care | DX: N39.0 Urinary tract infection, site not specified (principal); N12 Tubulo-interstitial nephritis, not specified as acute or chronic | CPT/HCPCS: 81000 ==

== ENCOUNTER 2021-10-14 10:34 | Outpatient (CLI) | payer OTHER, SELFPAY ==
--- NOTE | 2021-10-14 10:43 | XR_ITS ---
WS: [id number] LUMBAR SPINE: 3 VIEWS TECHNIQUE: AP, lateral and L5-S1 spot. HISTORY: LUMBAR BACK PAIN W/RADICULOPATHY COMPARISON: 07/31/2019 L4 anterolisthesis by 7 mm. Similar to the prior study. There is less than 2 mm retrolisthesis of T12 , L1 and L2. Similar to the prior study. Facet joint arthritis is mild to moderate throughout the lum bar spine but most significant at L4-5 and L5-S1. Mild anterior wedging with Schmorl's node at T11. Mild osteopenia. Disc spaces are very slightly narrowed. Pedicles are all identified. SI joints are symmetric bilaterally. No soft tissue abnormalities. Our cholecystectomy. XR/XR lumbar spine 2-3V* [id number] IMPRESSION: 1. L4 anterolisthesis by 7 mm, similar to the prior study. 2. Facet joint arthritis mild to moderate throughout the lumbar spine but most significant at L4-5 and L5-S1.
== END 2021-10-14 10:35 | disposition home or self-care (01) ==
LOC: RAD 10:38
PROVIDERS: PCP Family Medicine; Visit Provider Family Medicine
DX: M54.16 Radiculopathy, lumbar region (principal); M47.816 Spondylosis without myelopathy or radiculopathy, lumbar region; M47.817 Spondylosis without myelopathy or radiculopathy, lumbosacral region
CPT/HCPCS: 72100

== ENCOUNTER → 2022-03-09 10:33 | Outpatient (BNVA) | payer OTHER, SELFPAY | PROVIDERS: PCP Family Medicine; Visit Provider Family Medicine | DX: J06.9 Acute upper respiratory infection, unspecified (principal); J32.9 Chronic sinusitis, unspecified; B96.89 Other specified bacterial agents as the cause of diseases classified elsewhere | CPT/HCPCS: 87635 ==

== ENCOUNTER 2022-03-31 16:00 | Outpatient (CLI) | payer OTHER, SELFPAY ==
--- NOTE | 2022-03-31 16:09 | XR_ITS ---
WS: [id number] XR lumbar spine f/e only [id number] REASON FOR EXAM: SPONDYLOLISTHESIS, LUMBAR REGION FINDINGS: The examination is unchanged compared to 10/14/2021. No significant lumbar vertebral body compression deformity or focal lesion. 8 to 9 mm of anterolisthesis of L4 4 on L5. 2 mm of anterolisthesis of L3 in relation to L2. Narrowing of the intervertebral disc spaces at L4-L5. Moderate degenerative changes in the facet joints L3-S1. No significant vertebral body movement with flexion and extension. XR/XR lumbar spine f/e only [id number] IMPRESSION: Stable abnormal lumbar spine as above.
--- NOTE | 2022-03-31 16:09 | MR_ITS ---
WS: [id number] MRI LUMBAR SPINE NONCONTRAST HISTORY: VERTEBROGENIC LOW BACK PAIN COMPARISON: Prior radiographs 03/31/2022 and 10/14/2021 TECHNIQUE: Sagittal and axial multisequence imaging is submitted. There may actually be 6 nonrib-bearing vertebral bodies. In keeping with prior imaging studies the [facility] numbering pattern of 5 vertebral bodies will be recorded. This same numbering pattern will be used as prior radiographs. Prior anterior fusion in the cervical spine from C5 to C7. Anterior wedging of T11. L4 anterolisthesis by 6 mm. Very minimal anterolisthesis of L5. No acute lumbar spine fracture. There is a small amount of marrow edema bilaterally within the L4 and L5 pedicles and lamina, greatest on the LEFT. Mild disc desiccation without narrowing at L4-5 and L5-S1. Conus terminates normally at T12. L1-L2: Mild annular disc bulging with mild facet and ligamentum flavum hypertrophy. Minimal foraminal narrowing. L2-L3: Very minimal annular disc bulging. Moderate facet joint arthritis and ligamentum flavum arthri tis encroaching towards the central canal. Mild central, bilateral subarticular recess and foraminal stenosis. There is mild to moderate encroachment upon the traversing L3 nerve roots. L3-L4: Mild annular disc bulge. Small disc protrusion with annular fissure LEFT foramen. Mild disc en croachment upon the ventral thecal sac. Mild ligamentum flavum and facet arthritis. Mild central, aravind ateral subarticular recess and foraminal stenosis. Slightly greater stenosis LEFT foramen. L4-L5: Diffuse mild annular disc bulging with marked ligamentum flavum and facet arthritis. Nerve gordon ts are becoming clumped within the periphery of the thecal sac. Moderate to severe central with bilat eral subarticular recess encroachment upon the traversing L5 nerve roots. Mild foraminal stenosis. In crease fluid in the facet joints. L5-S1: Mild annular disc bulge with a central disc protrusion. Disc protrusion is very slightly asymm etric to the LEFT with minimal contact but no displacement of the LEFT S1 nerve root. No significant foraminal stenosis. MR/MR lumbar spine wo con* [id number] IMPRESSION: 1. Same vertebral body numbering pattern will be used as prior radiographs hav e been reported. 2. Grade 1 L4 anterolisthesis by 6 mm. 3. Marrow edema in the L4 and L5 pedicles and lamina. 4. Moderate to severe central with bilateral subarticular recess stenosis at L 4-5 with encroachment upon the traversing L5 nerve roots. 5. Mild central and bilateral subarticular recess and foraminal stenosis at L2 -3 with encroachment upon the traversing L3 nerve roots. 6. Mild central, bilateral subarticular recess and foraminal stenosis at L3-4. 7. Central disc protrusion at L5-S1 with minimal contact on the LEFT S1 nerve root. 8. Remote minimal anterior compression deformity T11.
== END 2022-03-31 16:01 | disposition home or self-care (01) ==
PROVIDERS: PCP Family Medicine; Visit Provider Anesthesiology Pain Medicine
DX: M43.16 Spondylolisthesis, lumbar region (principal)
CPT/HCPCS: 72120; 72148

== ENCOUNTER 2022-05-19 06:26 | Day surgery (SDC) | payer OTHER, SELFPAY ==
[2022-05-12 11:00] VITALS: BMI 29.7
--- NOTE | 2022-05-12 13:49 | P.ANESASSM_ITS ---
Pre-Anesthetic Assessment Height/Weight: Height 1.7 m Weight 86.183 kg Preop Diagnosis: Lumbar stenosis with neurogenic claudication Operation Date: 05/19/22 07:00 Proposed Procedures p Lumbar Spine Decompression L4/5 79608/M54.16(Not Applicable) - Omid Mcallister DO Familial anesthetic complications: Pain with propofol injection, request in be pushed slowly Was Beta Debi taken within 24 hours: N/A Was Clonidine taken within 24 hours: N/A Social No alcohol and No tobacco Exam alert, oriented x 3, clear to auscultation bilaterally and regular rate & rhythm Airway Submandibular: within normal limits Cervical ROM: within normal limits Mallampati: Class I Dentition: full History/ROS No significant complaints Pulmonary None reported CV/HEM None reported None reported Hepatic None reported GI None reported Metabolic None reported Musc/skel Osteoarthritis/DJD Cervical myelopathy Neuropsych None reported Anesthetic Plan ASA status: 2 Anesthesia: Anesthesia Evaluation and General Other: We discussed risk and benefits of general anesthesia including PONV, sore throat (sometimes severe), corneal abrasion, positioning and peripheral nerve injuries, life threatening allergic reaction, post operative ICU admission requiring prolonged intubation, stroke, heart attack, , and rare incidences of recall. Patient consents to proceed with general anesthesia. Risk of > 500 ml blood loss (7ml/kg in children): No Other Pertinent Information Pain with propofol injection, request in be pushed slowly Medications/Allergies Home Medications Medication Instructions Recorded Confirmed Last Taken Type escitalopram oxalate 20 mg tablet 20 mg PO DAILY 08/18/20 05/12/22 10/04/20 History (Lexapro) acetaminophen 300 mg-codeine 60 mg 1 tab PO Q6H #30 tabs 12/14/20 05/12/22 Unknown Rx tablet lorazepam 1 mg tablet (Ativan) 1 mg PO DAILY PRN Anxiety 07/03/21 05/12/22 Unknown History Allergies Allergy/AdvReac Type Severity Reaction Status Date / Time Penicillins Allergy Intermediate rash Verified 04/25/22 08:04 morphine AdvReac Intermediate can't void Verified 04/25/22 08:04 promethazine [From Phenergan] AdvReac Intermediate vomiting Verified 04/25/22 08:04 [facility] Anesthesia Medical History Cervical disc disorder with myelopathy of mid-cervical region Instability of joint Surgical History History of cervical spinal surgery (~2019) 01/26/2020 Dr. Lauren Barba. 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
[2022-05-19] VITALS (11 sets, daily range): BP systolic 120–155; BP diastolic 77–97; PULSE 18–98; RESP 12–19; TEMP 36.1–36.6; O2SAT 93–100
--- NOTE | 2022-05-19 | SCC_ITS ---
Procedure done: 1. L4/5 laminectomy with partial facetectomies 10.6 seconds of fluoroscopic guidance, for a cumulative dose of 4.56 mGy, was provided to Dr. Mcallister by the radiology department. C-arm images of the lumbar spine were saved for the patient's permanent record. [facility]
--- NOTE | 2022-05-19 | XR_ITS ---
WS: [id number] XR lumbar spine 1V [id number] REASON FOR EXAM: lumbar decompression L4/L5 FINDINGS: Surgical instrument overlies the L4-L5 interspace on the left. XR/XR lumbar spine 1V [id number] IMPRESSION: Intraoperative localization in the lumbar spine as above.
--- NOTE | 2022-05-19 06:58 | P.ANESUD_ITS ---
Pre-Anesthetic Update Pre-Anesthetic Assessment: Date of Surgery/Procedure: 05/19/22 Preop Lucía gnosis: Lumbar stenosis with neurogenic claudication Proposed Procedure: Operation Date: 05/19/22 08:10 Proposed Procedures p Lumbar Spine Decompression L4/5 99668/M54.16(Not Applicable) - Omid Mcallister, DO Any changes to Pre-Anesthetic Assessment?: No Last Intake: > 8 hrs Exam: Pre-Anes Outpt Exam: alert, oriented x 3, clear to auscultation bilaterally and regular rate & rhythm Cardiac Studies: No Data to Display
[2022-05-19] MEDS: sodium chloride 0.9% 1,000 ML 30 ML IV (07:02)
[2022-05-19] MEDS: midazolam 1 mg/mL INJ 2 mL 2 MG IVP (07:51)
--- NOTE | 2022-05-19 08:04 | W.PM.OPSUD ---
Surgery/Procedure H&P Update DATE OF PROCEDURE: May 19, 2022 DATE H&P PERFORMED: 04/25/22 H&P UPDATE INFORMATION: I have reviewed H&P completed within last 30 days, I have examined patient prior to procedure and No changes to prior documentation PREOP DIAGNOSIS: Lumbar stenosis with neurogenic claudication PLANNED PROCEDURE: Operation Date: 05/19/22 08:10 Proposed Procedures p Lumbar Spine Decompression L4/5 16553/M54.16(Not Applicable) - Omid Mcallister DO
[2022-05-19] MEDS: clindamycin 900 MG/50 ML PREMIX 100 MG IV (08:08)
--- NOTE | 2022-05-19 09:14 | P.OP_ITS ---
Operative Report Date of procedure: May 19, 2022 Pre-op diagnosis: Preop Diagnosis Lumbar stenosis with neurogenic claudication Post-op diagnosis: same Procedure done: 1. L4/5 laminectomy with partial facetectomies Surgeon: Omid Mcallister Traffic Circuit Engineer: Manpreet Kwan Traffic Circuit Engineer: The surgical services manager, WYATT Porter was needed for his expertise under the microscope. He was important and necessary throughout the procedure to complete in a safe and timely manner. He assisted with patient positioning prepping and draping tissue retraction suctioning of the operative field protection of the dural sac and tissue closure Estimated blood loss (mL): 10 Procedure: 1. L4/5 laminectomy with partial facetectomies Patient is brought to the operative suite. After undergoing anesthesia they are placed in the prone position. All areas of impingement are well padded. Patient is then prepped and draped in the normal sterile fashion. A skin incision is made over the L4-5 level. This is confirmed under c-arm guidance. A series of dilators are passed and the tubular retractor is docked on the L4 lamina. A bovie is used to clear the soft tissue off the lamina and the L 4/5 facet joint. A high speed aaliyah is then used to perform the laminectomy and take down the medial aspect of the L 4/5 facet joint. A kerrison rongeure was then used to take down the remaining lamina and smooth the edged of the laminectomy up to the point where the ligamentum flavum attaches. Attention was then brought to the medial aspect of the facet joint. The remaining medial aspect of the superior and inferior aspect of the facet joint were taken down with the kerrison from the pedicle of L4 to L 5. The facet joint had significant hypertrophy. Attention was then brought to the Ligamentum Flavum. The ligament was taken down from the lamina of L4 to L5 and out medially to the remaining facet joint. The ligament was thick. The dura was then exposed. The dura was in good repair. The L4 nerve was then traced with a curette out the L4/5 foramen and found to be adequately decompressed. The L5 nerve was traced with a curette around the L5 pedicle. The lateral recess was opened with a kerrison helping to further decompress the L5 nerve. The tubular retractor was then tilted to the contralateral side. The bovie was used to take down the soft tissue on the spinous process. The high speed aaliyah was used to take down the spinous process and then the contralateral lamina of L4. The kerrison rongeur was used to take down the remaining lamina to the point where the ligamentum flavum attached and the ligamentum flavum was taken down from L4 to L5. The kerrison rongeur was then used to reach across and take down the medial aspect of the contralateral L4/5 facet joint.The currete was used to trace the contralateral L4 nerve out the L4/5 foramen to make sure it was decompressed adequatesly and the L5 was traced around the L5 pedicle. The lateral recess was opened further with the kerrison to ensure the L5 is adequately decompressed. Wound is then irrigated copiously with saline and surgiflo is used to stop any bleeding. The tubular retractor is removed and the wound is closed with vicryl and monocryl suture. Glue is then used to protect the wound. A sterile dressing is then placed. Patient was then placed in the supine position and transferred to the PACU in stable condition.
[2022-05-19] MEDS: HYDROcodone-acetaminophen 5-325 mg Tablet 1 TAB PO (10:26)
--- NOTE | 2022-05-19 14:16 | ANE.PACU2 ---
Inpatient post-anesthesia follow up: Airway intact: Yes Vital signs: Temperature 97.0 F Pulse Rate 69 Respiratory Rate 18 Blood Pressure 139/77 Pulse Oximetry 98 Oxygen Delivery Me thod Room Air Oxygen Flow Rate 6 Fraction of Inspir ed Oxygen Hydration adequate: Yes Nausea and vomiting: No Pain level: 1 Mental status: Baseline
== END 2022-05-19 10:43 | disposition home or self-care (01) ==
PROVIDERS: PCP Family Medicine; Visit Provider Orthopaedic Surgery
PROC: (CPT 63005; principal; 2022-05-19 08:10)
DX: M48.062 Spinal stenosis, lumbar region with neurogenic claudication (principal)
CPT/HCPCS: 63047; 72020; 76000; J1100; J1200; J2250; J2405; J2704; J2710; J3010; J3490; J7030

== ENCOUNTER → 2022-07-06 14:18 | Outpatient (BNVA) | payer OTHER, SELFPAY | PROVIDERS: PCP Family Medicine; Visit Provider Family Medicine | DX: R10.32 Left lower quadrant pain (principal); Z51.81 Encounter for therapeutic drug level monitoring | CPT/HCPCS: 80053; 85025; 86141 ==

== ENCOUNTER 2022-08-22 15:08 | Outpatient (CLI) | payer OTHER, SELFPAY ==
--- NOTE | 2022-08-22 15:00 | CT_ITS ---
WS: [id number] CT ABDOMEN AND PELVIS WITH CONTRAST HISTORY: LLQ abd pain, pain for one and a half months. TECHNIQUE: Imaging performed of the abdomen and pelvis with IV contrast. Single phase imaging of the abdomen. Coronal and sagittal reformats are submitted. All CT scans at [facility] use at [address] one of these dose optimization techniques: automated exposure control; mA and/or kV adjustment per patient size (includes targeted exams where dose is matched to clinical indication); or iterative re construction. IV CONTRAST: Omnipaque 350; 95 mL IV. Oral contrast: No DLP: 1217.21 mGy.cm COMPARISON: None available. Lower thorax: Lung bases are clear. Heart is normal size. Small hiatal hernia. Liver/biliary system: Normal size liver with focal fatty sparing. Benign-appearing calcifications in the superior RIGHT lobe of the liver. No bile duct dilatation. Gallbladder: Status post cholecystectomy. Pancreas: Normal size pancreas and pancreatic duct. No adjacent inflammation. Spleen: Normal size spleen. No mass or infarct. Adrenal glands: Normal. Right kidney: Normal size kidney. No mass or obstruction. Small extrarenal pelvis. No perinephric str anding. Left kidney: Normal size kidney. There is very slight delayed enhancement of the LEFT kidney as yodit red to the RIGHT. Moderate hydronephrosis. There is mild enhancement of the dilated renal pelvis and proximal ureter uroepithelium. Obstruction is secondary to a 7 mm slightly irregular shaped calcific ation in the mid ureter. This may potentially be 2 adjacent calcifications. The distal ureter returns to normal caliber. There is very mild variable enhancement within the LEFT kidney. Suspect pyeloneph ritis. Aorta: Mild atherosclerosis with no aneurysm. Lymphadenopathy: None. Free fluid: None. GI tract: Normally distended stomach. No small bowel obstruction. Moderate diffuse constipation. Prio r appendectomy. No significant diverticular disease. Abdominal wall: Fat containing umbilical hernia. Pelvis: Prior hysterectomy. Visualized urinary bladder is normal. No free fluid or adenopathy. Bones: L4 anterolisthesis by [address]/CT abdomen pelvis w con* [id number] IMPRESSION: 1. Moderate LEFT hydroureteronephrosis secondary to a 7 mm irregular shaped ca lcification in the mid ureter. 2. Delayed, variable enhancement of the LEFT kidney with enhancement of the ur oepithelium involving the LEFT kidney and ureter. Findings are consistent with pyelonephritis. 3. Prior appendectomy, cholecystectomy and hysterectomy. Notified Alejandro Hopper MD at 08/22/2022 4:25 PM.
[2022-08-22] MEDS: iohexol 350 mg/mL 100 mL Btl IV (15:37)
== END 2022-08-22 15:09 | disposition home or self-care (01) ==
LOC: RAD 15:09
PROVIDERS: PCP Family Medicine; Visit Provider Family Medicine
DX: N13.30 Unspecified hydronephrosis (principal); R10.32 Left lower quadrant pain
CPT/HCPCS: 74177; Q9967

== ENCOUNTER 2022-08-23 14:43 | Outpatient (CLI) | payer OTHER, SELFPAY ==
--- NOTE | 2022-08-23 14:47 | XR_ITS ---
WS: [id number] Exam: XR KUB [id number] Date/Time of Exam: 08/23/2022 2:47 PM Reason For Exam: STONES No bowel obstruction or free air. 8 mm calcified density seen along the left paraspinal region at abo ut the level of L3 apparently represents a known stone in the upper left ureter. No calcifications ov erlie the kidneys. Signs of prior cholecystectomy. Degenerative changes of the lower lumbar spine. No sign of organ enlargement. XR/XR KUB [id number] IMPRESSION: 1. 8 mm left paraspinal calcification at about the level of L3 that apparently represents a known left ureteral stone. 2. No acute abdominal process noted.
== END 2022-08-23 14:44 | disposition home or self-care (01) ==
LOC: RAD 14:46
PROVIDERS: PCP Family Medicine; Visit Provider Urology
DX: N20.0 Calculus of kidney (principal)
CPT/HCPCS: 74018; 81003; 87077; 87086; 87186

== ENCOUNTER 2022-08-24 10:17 | Day surgery (SDC) | payer OTHER, SELFPAY ==
[2022-08-24] VITALS (8 sets, daily range): BP systolic 121–153; BP diastolic 76–93; PULSE 83–107; RESP 16–26; TEMP 36.7–36.9; O2SAT 94–100; BMI 29.0
--- NOTE | 2022-08-24 10:21 | SC_ITS ---
WS: [id number] Exam: C-arm FL for Urology Date/Time of Exam: 08/24/2022 10:21 AM Reason For Exam: Left ureteroscopy C-arm images of the left abdomen and pelvis are submitted for evaluation. A left-sided retrograde pyelogram has been performed. An ill-defined filling defect seen in the mid l eft ureter apparently secondary to the patient's known left ureteral stone. Some contrast does extend into the left renal pelvis. The final image demonstrates a left ureteral stent catheter in place. No other significant finding on this limited series.
[2022-08-24] MEDS: sodium chloride 0.9% 1,000 ML 30 ML IV (10:41)
--- NOTE | 2022-08-24 10:59 | P.ANESASSM_ITS ---
Pre-Anesthetic Assessment Height/Weight: Height 1.7 m Weight 83.915 kg Temp Pulse Resp BP Pulse Ox O2 Del Method 98.1 F 84 18 121/76 98 08/24/22 10:40 08/24/22 10:40 08/24/22 10:40 08/24/22 10:40 08/24/22 10:40 08/24/22 10:44 Preop Diagnosis: Left proximal ureteral stone, UTI Operation Date: 08/24/22 12:00 Proposed Procedures p CYSTOSCOPY LEFT RETROGRADE URETEROSCOPY LASER STENT 36985 MODIFIER 26 01540 51018 N20.1(Not Applicable) - Dimitrios Vines MD s Retrograde Pyelogram(Left) - MD caitlin Vazquez Ureteroscopy(Left) - Dimitrios Vines MD s Laser Lithotripsy(Left) - Dimitrios Vines MD s Ureteral Stent Placement(Left) - Dimitrios Vines MD Familial anesthetic complications: None Was Beta Debi taken within 24 hours: N/A Was Clonidine taken within 24 hours: N/A Last intake: Intake Last Liquid Date 08/23/22 Last Liquid Time 23:00 Last Solid Date 08/23/22 Last Solid Time 23:00 Social No alcohol and No tobacco Exam alert, oriented x 3, clear to auscultation bilaterally and regular rate & rhythm Airway Mallampati: Class II Dentition: full Pulmonary None reported CV/HEM None reported None reported Hepatic None reported GI None reported Metabolic None reported Musc/skel Osteoarthritis/DJD Neuropsych Neuropathy Anesthetic Plan ASA status: 2 Anesthesia: General Risk of > 500 ml blood loss (7ml/kg in children): No Medications/Allergies Home Medications Medication Instructions Recorded Confirmed Last Taken Type escitalopram oxalate 20 mg tablet 20 mg PO DAILY 08/18/20 08/24/22 08/23/22 History (Lexapro) acetaminophen 300 mg-codeine 60 mg 1 tab PO Q6H #100 tabs 05/18/22 08/24/22 08/23/22 Rx tablet lorazepam 1 mg tablet (Ativan) 1 mg PO BID PRN Anxiety #60 tabs 05/18/22 08/24/22 08/23/22 23:00 Rx ibuprofen 200 mg tablet 600 mg PO PRN PRN Pain 05/19/22 08/24/22 05/18/22 History levofloxacin 750 mg tablet 750 mg PO DAILY 7 days #7 tabs 08/23/22 08/24/22 08/23/22 20:00 Rx Allergies Allergy/AdvReac Type Severity Reaction Status Date / Time Penicillins Allergy Intermediate rash Verified 08/23/22 15:36 morphine AdvReac Intermediate can't void Verified 08/23/22 15:36 promethazine [From Phenergan] AdvReac Intermediate vomiting Verified 08/23/22 15:36 Current Medications Generic Name Dose Route Start Last Admin Trade Name Gi PRN Reason Stop Dose Admin Sodium Chloride 1,000 mls @ 30 mls/hr 08/24/22 10:30 08/24/22 10:41 Sodium Chloride 0.9% IV 08/25/22 10:29 30 mls/hr .Q24H ANY Administration PFSH Anesthesia Medical History (Updated 08/23/22 @ 16:26 by Dimitrios Vines MD) Cervical disc disorder with myelopathy of mid-cervical region Instability of joint Surgical History History of cervical spinal surgery (~2019) 01/26/2020 Dr. Lauren Barba. 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
[2022-08-24] MEDS: scopolamine 1.5 Patch 1 PATCH TRANSDERMA (11:15)
--- NOTE | 2022-08-24 11:31 | W.PM.OPSUD ---
Surgery/Procedure H&P Update DATE OF PROCEDURE: August 24, 2022 DATE H&P PERFORMED: 08/23/22 H&P UPDATE INFORMATION: I have reviewed H&P completed within last 30 days, I have examined patient prior to procedure, No changes to prior documentation and H&P is in [facility] [place] [place] EMR on date indicated PREOP DIAGNOSIS: Left proximal ureteral stone, UTI PLANNED PROCEDURE: Operation Date: 08/24/22 12:00 Proposed Procedures p CYSTOSCOPY LEFT RETROGRADE URETEROSCOPY LASER STENT [address] [place] [address]24 22300 N20.1(Not Applicable) - Dimitrios Vines MD s Retrograde Pyelogram(Left) - MD caitlin Vazquez Ureteroscopy(Left) - MD caitlin Vazquez Laser Lithotripsy(Left) - Dimitrios Viens MD s Ureteral Stent Placement(Left) - Dimitrios Vines MD
--- NOTE | 2022-08-24 12:30 | ANE.PACU2 ---
Inpatient post-anesthesia follow up: Airway intact: Yes Vital signs: Temperature 98.1 F Pulse Rate 84 Respiratory Rate 18 Blood Pressure 121/76 Pulse Oximetry 98 Oxygen Delivery Me thod Room Air Oxygen Flow Rate Fraction of Inspir ed Oxygen Hydration adequate: Yes Nausea and vomiting: No Pain level: 1 Mental status: Baseline
--- NOTE | 2022-08-24 12:57 | P.OP_ITS ---
Operative Report Date of procedure: August 24, 2022 Pre-op diagnosis: Left proximal ureteral stone, UTI Post-op diagnosis: Left proximal ureteral stone, UTI Procedure done: 1. Cystoscopy, LEFT retrograde ureteropyelogram 2. Left ureteroscopy, laser, stent Implants: Left ureteral stent (6 [place] by 28 cm double-pigtail no string) Specimens removed/disposition: Stone fragments Pathology: Stone fragments Surgeon: Mohinder Estimated blood loss: Minimal Urine output: Not measured Complications: None Findings: Anesthesia: General Condition: Stable Disposition: PACU Intraoperative findings: * Stone in the expected position. Easily accessed and fragmented. It was somewhat impacted. * Stent left indwelling to help facilitate healing of the impaction site. Will need to be in for about 3 weeks. Brief History: Mrs. Devi is a very pleasant 62-year-old white female recently diagnosed with a 7 mm left proximal ureteral stone with obstruction and a history that probably dates back to June as far as symptoms related to the stone. She is also had complications related to UTIs. The stone was diagnosed just a couple days ago. She was placed on antibiotics and is admitted now for endoscopic treatment. We reviewed that because the stone was in its position probably for quite some time there will be a higher chance of just having to stent if easy access to the stone with ureteroscopy could not be obtained. Also discussed the potential for interventional radiology/percutaneous nephrostomy tube/antegrade stent placement if access from a retrograde perspective was not possible Procedure: After routine preoperative evaluation examination and obtaining of informed consent she was taken to the operating suite on 08/24/2022 where general anesthesia was administered without difficulty after appropriate time was performed, SCDs confirmed to be functioning, preoperative antibiotics administered, beta-caitie protocol confirmed. Prepped and draped in usual sterile fashion in dorsolithotomy position paying careful attention to voiding pressure points. 21 [place] cystoscope with 30 degree lens was introduced into the urethra meatus and advanced into the bladder to videoscopy. Bladder was systematically examined. No stones were seen. An 8 [place] cone-tip catheter was intubated to the left ureteral orifice for left retrograde ureteropyelogram demonstrating: Normal ureter with filling defect consistent with a stone seen on previous imaging in the expected position. Ureter proximal to that was dilated. Not a lot of pressure applied during the retrograde ureteropyelogram. Flexible tip guidewire was then advanced up the left ureter bypassing the stone. The distal ureter was then dilated with a 15 [place]an 4 cm balloon with no waist at 4 cole of pressure. The bladder was drained and the wire was secured to the drapes as a safety wire. A 7 [place] offset semirigid ureteroscope was then easily advanced up the ureter next to the guidewire and the stone was encountered in its expected position. There was a lot of inflammation around the stone and it appeared to be adherent posteriorly but was able to be easily fragmented with a 365 ?m thulium superpulse laser fiber into mostly sand and very small pieces. Most of that flushed downstream the ureter. A second guidewire was then passed. A flexible ureteroscope was then advanced over the second wire up into the kidney. No significant stone debris had migrated into the kidney and multiple calyces were inspected. That which had was all very small. The ureter was inspected as the scope was removed and the procedure was completed. There was a lot of inflammatory change with a stone had obviously been impacted. It was decided to leave a stent. The cystoscope was then backloaded over the guidewire and a 6 [place] by 28 cm double-pigtail stent was advanced over the guidewire through the cystoscope into appropriate position as confirmed with fluoroscopy and cystoscopy stent was confirmed to be draining.. Some of the fragments that had been washed into the bladder were flushed out and sent for pathologic evaluation. She tolerated procedure well without complications and was awakened in the operating room and returned to recovery in stable condition. PLANS: 1. Anticipate discharge from outpatient surgery 2. Maintain stent for about 3 weeks to allow for healing
--- NOTE | 2022-08-24 13:14 | SUR.PHASEI ---
1305 PT TO PACU 5 PT AWAKES TO TOUCH, VSS IV PATENT TO RT HAND #20 WITH NS 100 ML UP AT KVO RATE PER GRAVITY, ID BAND TO LT WRIST PT ID'D WITH 2 IDENTIFIERS, ABDOMEN SOFT TO PALPATION, BILAT SCDS ON. MONITOR ST WITH NO ECTOPY NOTED, PT ON 8L MASK.
--- NOTE | 2022-08-24 13:20 | SUR.PHASEI ---
PT DENIES PAIN WANTS TO GET UP TO BATHROOM, VSS IV PATENT LT ARM AC IS OLD IV SITE THAT DISLODGED IN OR SOME SWELLING AT SITE LT PINK COLOR, WARM PACK TO SITE. PT HAS NO DISCOMFORT TO TOUCH.
[2022-09-02 11:17] LABS: Stone Source LEFT URETER
== END 2022-08-24 14:28 | disposition home or self-care (01) ==
PROVIDERS: PCP Family Medicine; Visit Provider Urology
PROC: 0TJB8ZZ Inspection of Bladder, Via Natural or Artificial Opening Endoscopic (ICD-10-PCS; CPT 52000; principal; 2022-08-24 12:00)
PROC: (CPT 74420; 2022-08-24 12:00)
PROC: 0TJ98ZZ Inspection of Ureter, Via Natural or Artificial Opening Endoscopic (ICD-10-PCS; CPT 52351; 2022-08-24 12:00)
PROC: (CPT 52356; 2022-08-24 12:00)
PROC: (CPT 50605; 2022-08-24 12:00)
DX: N20.1 Calculus of ureter (principal); N39.0 Urinary tract infection, site not specified
CPT/HCPCS: 52356; 76000; 82365; 88300; C2625; J1100; J2405; J2704; J2710; J3010; J3490; J7030

== ENCOUNTER 2022-08-30 08:29 | Outpatient (CLI) | payer OTHER, SELFPAY ==
--- NOTE | 2022-08-30 08:35 | MM_ITS ---
WS: [id number] DIAGNOSTIC BILATERAL DIGITAL BREAST TOMOSYNTHESIS MAMMOGRAPHY WITH CAD LEFT breast ultrasound, limited HISTORY: LEFT breast mass. COMPARISON: None available. TECHNIQUE: Bilateral craniocaudad, mediolateral oblique, and mediolateral views are submitted with to mosynthesis and SM. Spot compression views LEFT CC and MLO. Computer aided detection utilized. Breast composition: There are scattered areas of fibroglandular density. There is a large mass with s piculation and pleomorphic calcifications in a branching pattern in the LEFT upper outer quadrant. Th is mass measures 4.7 x 4.7 cm. Extension of calcification and ductal distribution surrounding the marcy id component. There is architectural distortion. Enlarged lymph nodes in the LEFT axilla. No abnormality noted in the RIGHT breast. LEFT breast ultrasound, limited. Hypoechoic shadowing mass with angular margins in the LEFT breast at 1:00, 3 cm from the nipple. Mass measures at least 2.1 x 2.0 x 2.3 cm. Shadowing and numerous foci of calcifications identified. Abnormal lymph nodes in the LEFT axilla. Loss of the normal fatty hilum and these lymph nodes are mercedez y hypoechoic and round. MM/[place] [id number] IMPRESSION: BI-RADS: 5-Highly Suggestive of Malignancy FOLLOW UP: Biopsy Recommended 1. Ultrasound-guided biopsy LEFT breast mass and abnormal LEFT axillary lymph nodes. Notified Alejandro Hopper MD at 08/30/2022 10:36 AM.
== END 2022-08-30 08:30 | disposition home or self-care (01) ==
LOC: RAD 08:29
PROVIDERS: PCP Family Medicine; Visit Provider Family Medicine
DX: N63.21 Unspecified lump in the left breast, upper outer quadrant (principal)
CPT/HCPCS: 76642; 77062; G0279

== ENCOUNTER → 2022-09-03 18:50 | Outpatient (BNVA) | payer OTHER, SELFPAY | PROVIDERS: PCP Family Medicine; Visit Provider Registered Nurse Neonatal Intensive Care | DX: N39.0 Urinary tract infection, site not specified (principal) | CPT/HCPCS: 81000; 87077; 87086; 87184 ==

== ENCOUNTER 2022-09-06 07:00 | Outpatient (RCR) | payer OTHER, SELFPAY ==
[2022-09-04] MEDS: cefTRIAXone 1,000 MG in sodium chloride 0.9% (plus) 50 ML 100 MG IV (14:07)
[2022-09-04 14:23] VITALS: BP 126/73; PULSE 75; RESP 18; TEMP 36.3; O2SAT 95
--- NOTE | 2022-09-04 14:47 | PC.NURSE ---
Pt to GI infusions for placement of midline and IV Rocephin through 09/11/22. Pt tolerated procedure and infusion well.
[2022-09-05] MEDS: cefTRIAXone 1,000 MG in sodium chloride 0.9% (plus) 50 ML 100 MG IV (07:05)
[2022-09-05 07:24] VITALS: BP 133/74; PULSE 75; RESP 18; TEMP 35.9; O2SAT 97
[2022-09-06] MEDS: cefTRIAXone 1,000 MG in sodium chloride 0.9% (plus) 50 ML 100 MG IV (06:58)
[2022-09-06 07:06] VITALS: BP 121/81; PULSE 69; RESP 18; TEMP 36.3; O2SAT 95
== END 2022-09-06 23:59 | disposition home or self-care (01) ==
LOC: GILAB 07:00
PROVIDERS: PCP Family Medicine; Visit Provider Urology
DX: N39.0 Urinary tract infection, site not specified (principal)
CPT/HCPCS: 36569; 96365; C1751; J0696

== ENCOUNTER 2022-09-11 07:10 | Outpatient (RCR) | payer OTHER, SELFPAY ==
[2022-09-07] MEDS: cefTRIAXone 1,000 MG in sodium chloride 0.9% (plus) 50 ML 100 MG IV (07:25)
[2022-09-07 07:35] VITALS: BP 113/77; PULSE 64; RESP 18; TEMP 36.1; O2SAT 96
[2022-09-08] MEDS: cefTRIAXone 1,000 MG in sodium chloride 0.9% (plus) 50 ML 100 MG IV (06:55)
[2022-09-08 06:58] VITALS: BP 107/61; PULSE 60; RESP 18; TEMP 36.1; O2SAT 94
[2022-09-09] MEDS: cefTRIAXone 1,000 MG in sodium chloride 0.9% (plus) 50 ML 100 MG IV (09:00)
[2022-09-09 09:07] VITALS: BP 122/71; PULSE 65; RESP 18; TEMP 36.2; O2SAT 95
[2022-09-10 08:52] VITALS: BP 126/78; PULSE 74; RESP 18; TEMP 36.2; O2SAT 96
[2022-09-10] MEDS: cefTRIAXone 1,000 MG in sodium chloride 0.9% (plus) 50 ML 100 MG IV (09:00)
[2022-09-11] MEDS: cefTRIAXone 1,000 MG in sodium chloride 0.9% (plus) 50 ML 100 MG IV (07:10)
[2022-09-11 07:18] VITALS: BP 126/78; PULSE 74; RESP 18; TEMP 36; O2SAT 97
--- NOTE | 2022-09-11 07:45 | PC.NURSE ---
Midline removed. 10 cm noted with cath tip intact. Pressure held for approx 2 minutes. No bleeding or hematoma noted. Pt educated on S&S of infection, bleeding, and blood clots and to follow up with PCP or return to ER for problems.
== END 2022-10-07 23:59 | disposition home or self-care (01) ==
LOC: GILAB 07:10
PROVIDERS: PCP Family Medicine; Visit Provider Urology
DX: N39.0 Urinary tract infection, site not specified (principal)
CPT/HCPCS: 96365; J0696

== ENCOUNTER 2022-09-15 06:37 | Outpatient (CLI) | payer OTHER, SELFPAY ==
--- NOTE | 2022-09-15 07:36 | XR_ITS ---
WS: [id number] EXAMINATION: XR KUB [id number] REASON FOR EXAM: Kidney Stone COMPARISON: 08/24/2022 ORDER DATE: 09/15/2022 7:36 AM FINDINGS: There is a nonspecific colonic gas pattern with scattered fecal content and gas. There is no sign of significant small bowel dilation. No pathologic abdominal calcification is seen. There is a double- J ureteral stent on the left. There are 3 calcifications adjacent to the stent near the ureterovesica l junction, which on recent fluoroscopy/C-arm urogram were demonstrated to be outside the ureter. The refore, these represent phleboliths. XR/XR KUB [id number] IMPRESSION: Double-J ureteral stent in satisfactory position.
== END 2022-09-15 06:38 | disposition home or self-care (01) ==
PROVIDERS: PCP Family Medicine; Visit Provider Urology
DX: N20.0 Calculus of kidney (principal); Z96.0 Presence of urogenital implants
CPT/HCPCS: 74018

== ENCOUNTER → 2022-09-25 09:54 | Outpatient (BNVA) | payer OTHER, SELFPAY | PROVIDERS: PCP Family Medicine; Visit Provider Family Medicine | DX: M25.562 Pain in left knee (principal); R10.32 Left lower quadrant pain; N20.0 Calculus of kidney; N39.0 Urinary tract infection, site not specified; N20.1 Calculus of ureter; J32.9 Chronic sinusitis, unspecified; B96.89 Other specified bacterial agents as the cause of diseases classified elsewhere; Z51.81 Encounter for therapeutic drug level monitoring | CPT/HCPCS: 85025; 86141 ==

== ENCOUNTER 2022-09-26 08:18 | Outpatient (CLI) | payer OTHER, SELFPAY ==
--- NOTE | 2022-09-26 | US_ITS ---
WS: [id number] ULTRASOUND-GUIDED LEFT BREAST AND LEFT AXILLARY BIOPSY CLINICAL INFORMATION: Suspicious left breast mass on US/Mammogram FINDINGS: The procedure including risks, benefits, and complications were discussed with the patient who agreed to proceed. Using sterile technique patient was prepped and draped in the usual sterile fashion. Aft er 1% lidocaine utilizing real-time ultrasound guidance 4 14-gauge cores were obtained of the LEFT br east lesion at the 1 o'clock position 3 cm from the nipple. Subsequently a titanium clip was placed i n the biopsy cavity. Next the largest LEFT axillary lymph node was selected. 2 14-gauge core biopsies were obtained in the biopsy clip was placed. No immediate complications. Pathology demonstrates A. Breast, left, 1 o'clock, 3 cm from nipple, ultrasound-guided biopsy: - Invasive ductal carcinoma. - Cerda Quinonez grade 2 (score 6). - Lymphovascular invasion identified. 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 - Microcalcifications identified. - Breast profile has been performed and will be reported separately. B. Lymph node, left axilla, ultrasound-guided biopsy: - Metastatic carcinoma. - 2 out of 2 cores involved with metastatic carcinoma. - Breast profile has been performed and will be reported separately. US/US biopsy lymph node breast/ax IMPRESSION: 1. Uncomplicated ultrasound-guided LEFT breast biopsy and LEFT axillary lymph node biopsy. 2. The pathology demonstrates invasive ductal carcinoma 1:00 LEFT breast lesio n. Metastatic carcinoma is identified in the LEFT axillary lymph node. 3. Breast cancer prognostic profile pending. BI-RADS: 6-Known Biopsy-Proven Malignancy FOLLOW UP: Surgical Biopsy Recommended Recommend BREAST SURGERY CONSULTATION
--- NOTE | 2022-09-26 08:26 | US_ITS ---
WS: [id number] ULTRASOUND-GUIDED LEFT BREAST AND LEFT AXILLARY BIOPSY CLINICAL INFORMATION: Suspicious left breast mass on US/Mammogram FINDINGS: The procedure including risks, benefits, and complications were discussed with the patient who agreed to proceed. Using sterile technique patient was prepped and draped in the usual sterile fashion. Aft er 1% lidocaine utilizing real-time ultrasound guidance 4 14-gauge cores were obtained of the LEFT br east lesion at the 1 o'clock position 3 cm from the nipple. Subsequently a titanium clip was placed i n the biopsy cavity. Next the largest LEFT axillary lymph node was selected. 2 14-gauge core biopsies were obtained in the biopsy clip was placed. No immediate complications. Pathology demonstrates A. Breast, left, 1 o'clock, 3 cm from nipple, ultrasound-guided biopsy: - Invasive ductal carcinoma. - Cerda Quinonez grade 2 (score 6). - Lymphovascular invasion identified. 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 - Microcalcifications identified. - Breast profile has been performed and will be reported separately. B. Lymph node, left axilla, ultrasound-guided biopsy: - Metastatic carcinoma. - 2 out of 2 cores involved with metastatic carcinoma. - Breast profile has been performed and will be reported separately. US/[place] [id number] IMPRESSION: 1. Uncomplicated ultrasound-guided LEFT breast biopsy and LEFT axillary lymph node biopsy. 2. The pathology demonstrates invasive ductal carcinoma 1:00 LEFT breast lesio n. Metastatic carcinoma is identified in the LEFT axillary lymph node. 3. Breast cancer prognostic profile pending. BI-RADS: 6-Known Biopsy-Proven Malignancy FOLLOW UP: Surgical Biopsy Recommended Recommend BREAST SURGERY CONSULTATION
--- NOTE | 2022-09-26 08:45 | XR_ITS ---
WS: [id number] Exam: XR knee LT 3V* [id number] Date/Time of Exam: 09/26/2022 8:46 AM Reason For Exam: Left knee pain - possible quad tendon rupture Comparison 12/14/2020. A total knee prosthesis is in place in satisfactory position. No sign of loosening or fracture. No brenton int effusion seen. Unremarkable soft tissues. XR/XR knee LT 3V* [id number] IMPRESSION: 1. Total knee replacement in satisfactory position without change or complicati on.
[2022-09-29 13:03] LABS: Lymphoma Profile (BBPL) See Report
[2022-10-05 06:45] LABS: Breast Profile ER,PR,HER2,Ki-6 See Report
[2022-10-05 06:46] LABS: Breast Profile ER,PR,HER2,Ki-6 See Report
== END 2022-09-26 08:19 | disposition home or self-care (01) ==
PROVIDERS: PCP Family Medicine; Visit Provider Family Medicine
DX: M25.562 Pain in left knee (principal); N63.21 Unspecified lump in the left breast, upper outer quadrant; R92.8 Other abnormal and inconclusive findings on diagnostic imaging of breast; C50.412 Malignant neoplasm of upper-outer quadrant of left female breast; C77.3 Secondary and unspecified malignant neoplasm of axilla and upper limb lymph nodes; R92.1 Mammographic calcification found on diagnostic imaging of breast; Z96.652 Presence of left artificial knee joint
CPT/HCPCS: 19083; 38505; 73562; 76942; 88184; 88185; 88305; 88361; 88374

== ENCOUNTER → 2022-10-29 14:49 | Outpatient (BNVA) | payer OTHER, SELFPAY | PROVIDERS: PCP Family Medicine; Visit Provider Registered Nurse Neonatal Intensive Care | DX: J02.9 Acute pharyngitis, unspecified (principal); B34.9 Viral infection, unspecified | CPT/HCPCS: 87071; 87880 ==

== ENCOUNTER → 2022-11-08 10:30 | Day surgery (SDC) | payer OTHER, SELFPAY ==
[2022-11-07 12:48] VITALS: BMI 31.3
[2022-11-08] VITALS (12 sets, daily range): BP systolic 115–146; BP diastolic 75–99; PULSE 90–104; RESP 7–18; TEMP 36.1–37.1; O2SAT 91–98
--- NOTE | 2022-11-08 | US_ITS ---
WS: [id number] ULTRASOUND-GUIDED LEFT BREAST NEEDLE LOCALIZATION INDICATION: LEFT breast mass TECHNIQUE: The procedure including risks, benefits, and complications were discussed with the patient who agreed to proceed. Timeout was performed. Patient was prepped and draped in usual sterile fashio n. After 1% lidocaine, using ultrasound guidance, a 9 cm Kopan's needle was advanced into the 1:00 LE FT breast lesion 3 cm from the nipple. Distal tip of the wire approximately 1.5 cm beyond the medial margin of the lesion. No immediate complications. Ultrasound examination of the surgical specimen demonstrates gross total resection with intact wire. US/US surgical specimen IMPRESSION: 1. Uncomplicated ultrasound-guided wire localization LEFT breast mass at the 1 :00 position 3 cm from the nipple. 2. Ultrasound examination of the surgical specimen demonstrates total resectio n with intact wire.
--- NOTE | 2022-11-08 10:52 | US_ITS ---
WS: [id number] ULTRASOUND-GUIDED LEFT BREAST NEEDLE LOCALIZATION INDICATION: LEFT breast mass TECHNIQUE: The procedure including risks, benefits, and complications were discussed with the patient who agreed to proceed. Timeout was performed. Patient was prepped and draped in usual sterile fashio n. After 1% lidocaine, using ultrasound guidance, a 9 cm Kopan's needle was advanced into the 1:00 LE FT breast lesion 3 cm from the nipple. Distal tip of the wire approximately 1.5 cm beyond the medial margin of the lesion. No immediate complications. Ultrasound examination of the surgical specimen demonstrates gross total resection with intact wire. US/[place] [id number] IMPRESSION: 1. Uncomplicated ultrasound-guided wire localization LEFT breast mass at the 1 :00 position 3 cm from the nipple. 2. Ultrasound examination of the surgical specimen demonstrates total resectio n with intact wire.
--- NOTE | 2022-11-08 11:18 | P.ANESASSM_ITS ---
Pre-Anesthetic Assessment Height/Weight: Height 1.7 m Weight 90.718 kg O2 Del Method 11/08/22 10:51 Preop Diagnosis: Left breast cancer Operation Date: 11/08/22 12:00 Proposed Procedures p Needle loc left breast lumpectomy with sentinal axillary node dissection 14058, 80693, 19083,C50.919(Left) - Nick Rutledge DO s Sentinal Lymph Node Biopsy(Left) - Nick Rutledge DO Familial anesthetic complications: none Was Beta Debi taken within 24 hours: N/A Was Clonidine taken within 24 hours: N/A Last intake: Intake Last Liquid Date 11/07/22 Last Liquid Time 22:00 Last Solid Date 11/07/22 Last Solid Time 22:00 Social No alcohol and No tobacco Exam alert, oriented x 3, clear to auscultation bilaterally and regular rate & rhythm Airway Submandibular: within normal limits Cervical ROM: within normal limits Mallampati: Class II Dentition: full Metabolic Morbid Obesity Musc/skel Lower Back Pain and Osteoarthritis/DJD Neuropsych Anxiety Anesthetic Plan ASA status: 2 Anesthesia: General Medications/Allergies Home Medications Medication Instructions Recorded Confirmed Last Taken Type ibuprofen 200 mg tablet 600 mg PO PRN PRN Pain 05/19/22 11/08/22 09/07/22 History acetaminophen 300 mg-codeine 60 mg 1 tab PO Q6H #100 tabs 10/23/22 11/08/22 Unknown Rx tablet escitalopram oxalate 20 mg tablet 20 mg PO DAILY #90 tabs 10/23/22 11/08/22 11/07/22 Rx (Lexapro) lorazepam 1 mg tablet 1 mg PO BID PRN anxiety #60 tabs 10/23/22 11/08/22 11/07/22 Rx Allergies Allergy/AdvReac Type Severity Reaction Status Date / Time Penicillins Allergy Intermediate rash Verified 11/07/22 12:46 morphine AdvReac Intermediate can't void Verified 11/07/22 12:47 promethazine [From Phenergan] AdvReac Intermediate vomiting Verified 11/07/22 12:47 PFSH Anesthesia Medical History Arthritis Cervical disc disorder with myelopathy of mid-cervical region History of depression Hx of anxiety disorder Hx of insomnia Hx of sleep apnea Instability of joint Seasonal allergies Urolithiasis Surgical History History of cervical spinal surgery (~2019) 01/26/2020 Dr. Lauren Barba. 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
[2022-11-08] MEDS: sodium chloride 0.9% 1,000 ML 30 ML IV (11:20)
[2022-11-08] MEDS: vancomycin 1,500 MG/300 ML PIGGYBACK 200 MG IV (11:20)
--- NOTE | 2022-11-08 12:08 | PC.NURSE ---
Patient given transdermal injection of 960 uCi Tc99m Tilmanocept Lymphoseek in the upper outer quadrant of the left breast by Shonda Dietz [facility] at 1201. No complications.
--- NOTE | 2022-11-08 12:27 | W.PM.OPSUD ---
Surgery/Procedure H&P Update DATE OF PROCEDURE: November 08, 2022 DATE H&P PERFORMED: 10/24/22 PREOP DIAGNOSIS: Left breast cancer PLANNED PROCEDURE: Operation Date: 11/08/22 12:00 Proposed Procedures p Needle loc left breast lumpectomy with sentinal axillary node dissection 87963, 62685, 26486,C50.919(Left) - DO caitlin Paul Sentinal Lymph Node Biopsy(Left) - Nick Rutledge DO
--- NOTE | 2022-11-08 14:16 | P.OP_ITS ---
Operative Report Date of procedure: November 08, 2022 Pre-op diagnosis: Preop Diagnosis Left breast cancer Post-op diagnosis: same Procedure done: Left breast lumpectomy with needle insertion and radiologic correlation Left axillary node dissection Implants: Surgicel and Stephenie Specimens removed/disposition: Left breast lumpectomy Left axillary contents Surgeon: Dr. Nick Rutledge, DO Anesthesia: General Estimated blood loss (mL): 150 Complications: None apparent Brief History: This a very pleasant 62-year-old female who was diagnosed with left breast cancer and had palpable left axillary nodes that were biopsy-proven to be cancer. Left breast lumpectomy and left axillary node dissection was indicated. The risks and benefits were explained and documented. Procedure: After radiotracer was injected and wire localization was performed by radiology, the patient was brought back into the operating room. She was placed on the OR table in the supine position. The left breast and axilla were inspected prepped and draped in usual sterile fashion. A timeout was performed. All present were in agreement. After localization with 2% lidocaine with epinephrine, a 6 cm incision was made over the mass, in the 1 o'clock position. Electrocautery was used to carve out a lumpectomy specimen. The entire needle was included. Disse ction was carried down to the pectoralis major muscle. Specimen was taken out en bloc. Short stitch marked superior. Long stitch marked lateral. Double stitch marking anterior. Hemostasis was achieved with electrocautery. Specimen was sent to radiology who said the clip and wire were surrounded by adequate tissue margins. A 6 cm incision was made in the axillary fold along the anterior axillary line. Dissection was carried down with electrocautery. The clavipectoral fascia was incised along the edge of the pectoralis major muscle identify the major and minor muscle. There were no palpable Aashish's nodes. The dissection was carried posteriorly to the latissimus dorsi muscle, the long thoracic nerve was identified along the serratus anterior muscle along with the lateral pectoral bundle. The pectoralis minor head was retracted superiorly to identify the axillary vein. Careful dissection was performed around the axillary vein, posterior to the pectoralis minor muscle to free the level II axillary nodes. The dissection was carried laterally, The thoracodorsal neurovascular bundle was identified posteriorly. The lymph nodes between these 2 nerves were freed. The entire axillary contents were removed en bloc and handed off.The dermis was approximated with 3-0 Vicryl. The skin was closed with 4-0 Vicryl in a subcuticular and running fashion. Dermabond was applied. Patient tolerated the procedure well.
[2022-11-08] MEDS: fentaNYL 50 mcg/mL INJ 2mL 100 MCG IVP (15:18)
[2022-11-08] MEDS: HYDROcodone-acetaminophen 7.5-325 mg Tablet 1 TAB PO (15:46)
--- NOTE | 2022-11-08 16:07 | ANE.PACU2 ---
Inpatient post-anesthesia follow up: Airway intact: Yes Vital signs: Temperature 97.7 F Pulse Rate 100 Respiratory Rate 18 Blood Pressure 143/98 Pulse Oximetry 92 Oxygen Delivery Me thod Room Air Oxygen Flow Rate 6 Fraction of Inspir ed Oxygen Hydration adequate: Yes Nausea and vomiting: No Pain level: 3 Mental status: Baseline
[2022-11-08] MEDS: ondansetron 2 mg/ML SDV 2 mL 4 MG IVP (16:11)
== END | disposition home or self-care (01) ==
PROVIDERS: PCP Family Medicine; Visit Provider Surgery
PROC: (CPT 19120; principal; 2022-11-08 12:00)
DX: C50.912 Malignant neoplasm of unspecified site of left female breast (principal); E66.01 Morbid (severe) obesity due to excess calories; Z68.31 Body mass index [BMI] 31.0-31.9, adult; G47.30 Sleep apnea, unspecified; M19.90 Unspecified osteoarthritis, unspecified site
CPT/HCPCS: 19301; 38500; 19285; 38792; 88307; A9520; C1889; J1100; J1170; J2250; J2405; J2704; J3010; J3370; J3490; J7030

== ENCOUNTER 2022-12-11 12:57 | Observation (INO) | payer OTHER, SELFPAY ==
[2022-12-08 12:23] VITALS: BMI 29.7
[2022-12-11] VITALS (16 sets, daily range): BP systolic 105–166; BP diastolic 65–92; PULSE 72–92; RESP 14–18; TEMP 36.1–36.9; O2SAT 92–100
[2022-12-11] MEDS: scopolamine 1.5 Patch 1 PATCH TRANSDERMA (08:47)
[2022-12-11] MEDS: sodium chloride 0.9% 1,000 ML 30 ML IV (08:47)
--- NOTE | 2022-12-11 08:58 | ANES.PREANE2 ---
Pre-Anesthetic Assessment Height/Weight: Height 1.7 m Weight 86.183 kg Temp Pulse Resp BP Pulse Ox O2 Del Method 97 F L 81 16 118/77 97 12/11/22 08:27 12/11/22 08:27 12/11/22 08:27 12/11/22 08:27 12/11/22 08:27 12/11/22 08:37 Preop Diagnosis: Left breast cancer Operation Date: 12/11/22 10:15 Proposed Procedures p eft breast masectomy and right breast prophylactic masectomy 03467 2x C50.919 ,Z40.1(Bilateral) - Nick Rutledge DO Familial anesthetic complications: None Was Beta Debi taken within 24 hours: N/A Was Clonidine taken within 24 hours: N/A Last intake: Intake Last Liquid Date 12/10/22 Last Liquid Time 21:00 Last Solid Date 12/11/22 Last Solid Time 21:00 Social No alcohol and No tobacco Exam alert, oriented x 3, clear to auscultation bilaterally and regular rate & rhythm Airway Mallampati: Class II Dentition: full Musc/skel Osteoarthritis/DJD Neuropsych Anxiety Anesthetic Plan ASA status: 2 Anesthesia: General Risk of > 500 ml blood loss (7ml/kg in children): No Medications/Allergies Home Medications Medication Instructions Recorded Confirmed Last Taken Type ibuprofen 200 mg tablet 600 mg PO PRN PRN Pain 05/19/22 12/08/22 09/07/22 History acetaminophen 300 mg-codeine 60 mg 1 tab PO Q6H #100 tabs 10/23/22 12/11/22 12/08/22 Rx tablet escitalopram oxalate 20 mg tablet 20 mg PO DAILY #90 tabs 10/23/22 12/11/22 12/11/22 Rx (Lexapro) lorazepam 1 mg tablet 1 mg PO BID PRN anxiety #60 tabs 10/23/22 12/11/22 12/10/22 Rx Allergies Allergy/AdvReac Type Severity Reaction Status Date / Time Penicillins Allergy Intermediate rash Verified 12/11/22 08:29 morphine AdvReac Intermediate can't void Verified 12/11/22 08:29 promethazine [From Phenergan] AdvReac Intermediate vomiting Verified 12/11/22 08:29 Current Medications Generic Name Dose Route Start Last Admin Trade Name Freq PRN Reason Stop Dose Admin Sodium Chloride 1,000 mls @ 30 mls/hr 12/11/22 08:30 12/11/22 08:47 Sodium Chloride 0.9% IV 12/12/22 08:29 30 mls/hr .Q24H ANY Administration PFSH Anesthesia Medical History Arthritis Cervical disc disorder with myelopathy of mid-cervical region History of depression Hx of anxiety disorder Hx of insomnia Hx of sleep apnea Instability of joint Seasonal allergies Urolithiasis Surgical History History of cervical spinal surgery (~2019) 01/26/2020 Dr. Lauren Barba. 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
[2022-12-11] MEDS: midazolam 1 mg/mL INJ 2 mL 2 MG IVP (09:06)
[2022-12-11] MEDS: vancomycin 1,500 MG/300 ML PIGGYBACK 200 MG IV (09:07)
--- NOTE | 2022-12-11 09:07 | W.PM.OPSUD ---
Surgery/Procedure H&P Update DATE OF PROCEDURE: December 11, 2022 DATE H&P PERFORMED: 11/21/22 H&P UPDATE INFORMATION: I have reviewed H&P completed within last 30 days, I have examined patient prior to procedure and No changes to prior documentation PREOP DIAGNOSIS: Left breast cancer PLANNED PROCEDURE: Operation Date: 12/11/22 10:15 Proposed Procedures p eft breast masectomy and right breast prophylactic masectomy 70931 2x C50.919 ,Z40.1(Bilateral) - Nick Rutledge DO
[2022-12-11] MEDS: lidocaine-epi 2% 20 mL INJ (13:06)
[2022-12-11] MEDS: lidocaine-epi 2% 20 mL INJ 10 ML INJECTION (13:28)
--- NOTE | 2022-12-11 13:29 | PM.OP ---
Operative Report Date of procedure: December 11, 2022 Pre-op diagnosis: Preop Diagnosis Left breast cancer Post-op diagnosis: same Procedure done: Bilateral simple mastectomies Implants: Stephenie, 19 Khmer Leonides drains x2 Specimens removed/disposition: Left breast and right breast, stitch is marked medial Surgeon: Dr. Nick Rutledge DO Anesthesia: General Estimated blood loss (mL): 200 Complications: None apparent Brief History: This a very pleasant 62-year-old female with left breast cancer. She previously underwent a left breast lumpectomy and left axillary node dissection. 3 margins came back positive on the lumpectomy specimen and she elected for a left simple mastectomy and prophylactic right simple mastectomy. The risk and benefits were explained and documented. Procedure: The patient was wheeled into the operative room and placed on the OR table in the supine position. The bilateral breast and axillas were inspected prepped and draped in the usual sterile fashion. A timeout was performed. All present were in agreement. A horizontal excision was made from medial to the latissimus dorsi to lateral to the sternum, encompassing the nipple. The lateral dissection was performed first. I dissected down to the latissimus dorsi and superior to the clavipectoral fascia using Bovie cautery. The horizontal ellipse excision was made with a 15 blade scalpel and carried down to the fatty tissue with Bovie cautery. I started with the superior flap and removed all the breast tissue using Bovie cautery. This was carried up to the clavipectoral fascia and down to the pectoralis major. All breast tissue was removed laterally to the latissimus dorsi and medially to the sternum. I then went to the posterior flap. All breast tissue was removed with Bovie cautery down to the inframammary fold. I did not visualize a mass as the breast was removed en bloc. I carried the dissection down to the pectoralis major and removed all the breast tissue in its entirety. Hemostasis was achieved with electrocautery and medium sized clips. The breast was removed and a stitch was placed on the medial margin to edson the specimen. The specimen was passed off. The surgical field was irrigated and suctioned. There was no sign of bleeding. A 19 Khmer Leonides drain was then placed underneath the skin. Dermis was then approximated with 3-0 Vicryl in interrupted fashion. Skin was then closed with 4-0 Monocryl in a subcuticular running fashion. Next the same exact procedure was performed on the right breast. The bilateral mastectomies were performed and the skin came together nicely. Dermabond was placed over both incisions. 2% lidocaine with epinephrine was used to anesthetize along the incision line. Patient tolerated the procedure well and was wheeled in the postoperative anesthesia care unit in good condition.
--- NOTE | 2022-12-11 14:47 | ANE.PACU2 ---
Inpatient post-anesthesia follow up: Airway intact: Yes Vital signs: Temperature 97.8 F Pulse Rate 91 Respiratory Rate 16 Blood Pressure 149/85 Pulse Oximetry 94 Oxygen Delivery Me thod Room Air Oxygen Flow Rate 6 Fraction of Inspir ed Oxygen Hydration adequate: Yes Nausea and vomiting: No Pain level: 1 Mental status: Baseline
[2022-12-11] MEDS: ondansetron 2 mg/ML SDV 2 mL 4 MG IVP (14:58)
[2022-12-11] MEDS: HYDROmorphone 1 mg/mL INJ 1 mL IVP (14:58)
[2022-12-11] MEDS: sodium chloride 0.9% 1,000 ML 100 ML IV (15:01)
[2022-12-11] MEDS: docusate sodium 100 mg Capsule PO (17:43)
[2022-12-11] MEDS: HYDROcodone-acetaminophen 7.5-325 mg Tablet 1 TAB PO ×2 (17:43→22:07)
[2022-12-12] MEDS: HYDROcodone-acetaminophen 7.5-325 mg Tablet 1 TAB PO ×3 (02:07→11:27)
[2022-12-12 02:10] VITALS: BP 99/62; PULSE 81; RESP 16; TEMP 36.8; O2SAT 97
[2022-12-12 06:20] VITALS: BP 96/57; PULSE 80; RESP 16; TEMP 36.9; O2SAT 94
[2022-12-12] MEDS: pantoprazole DR 40 mg Tablet PO (08:14)
[2022-12-12] MEDS: docusate sodium 100 mg Capsule PO (08:14)
--- NOTE | 2022-12-12 08:52 | P.DS_ITS ---
Discharge Providers Date of Admission: 12/11/22 12:57 Date of Discharge: December 12, 2022 Attending Provider at Admission: Nick Rutledge DO Attending Provider at Discharge: Nick Rutledge DO Primary Care Provider: Alejandro Hopper MD Reason for Visit Reason for Visit: surgery Brief History: Left breast cancer Hospital Course Hospital Course This is a very pleasant 62-year-old female who is to the [facility] physical therapist, who previously underwent left breast lumpectomy and axillary node dissection for invasive ductal carcinoma. 3 of her margins came back positive and she elected for left mastectomy and prophylactic right mastectomy. She underwent bilateral simple mastectomies and was discharged home in good condition the next day. Physical Exam Narrative: General : Patient is well developed , no acute distress, oriented x3 Head : Normal cephalic, a-traumatic. Ears : Pinnae and external canal are normal. Hearing is normal. Eyes : PERRLA, Sclera and injection are normal. No conjunctival discharge. Nose : Mucous membranes are without erythema. Throat : buccal mucosa is normal, gums are without significant recession or hypertrophy. Lungs : Equal chest rise bilaterally, no use of accessory muscles, trachea is midline. Cor : Rate and rhythm are normal. Abdomen : Soft, ND, NT, no g/r/m Dressings intact without erythema or exudate Drains serosanguineous Extremities : No edema, no cyanosis or clubbing, dorsalis pedis pulses are present bilaterally, non-tender to palpation of calves. Upper extremities are normal bilaterally. Back : non-tender to palpation, no CVA tenderness. Neuro : CN II - XII intact, Upper and lower extremities have equal and full strength Urinary Catheter Management: Heart: Cath Placed During This Visit: yes Urinary Catheter Date of Insertion: 12/11/22 Urinary Catheter Time of Insertion: 10:00 Discharge Data Studies Completed and Pending Pending at discharge Category Date Time Status Pathology: Surgical [PTH] Routine Pth 12/11/22 12:47 Received Procedures Performed Bilateral simple mastectomies Vitals Last Vital Signs Temp 98.5 F 12/12/22 06:20 Pulse 80 12/12/22 06:20 Resp 16 12/12/22 06:20 BP 96/57 12/12/22 06:20 Pulse Ox 94 12/12/22 06:20 O2 Del Method 12/12/22 06:20 O2 Flow Rate 6 12/11/22 14:00 Discharge Plan Discharge Patient Disposition: Home Condition: Stable Prescriptions: New hydrocodone-acetaminophen 10-325 mg tablet 1 tab PO Q4H PRN (Reason: pain) Qty: 40 0RF docusate sodium [DOK] 100 mg capsule 100 mg PO BID Qty: 20 0RF Continued lorazepam 1 mg tablet 1 mg PO BID PRN (Reason: anxiety) Qty: 60 2RF escitalopram oxalate [Lexapro] 20 mg tablet 20 mg PO DAILY Qty: 90 3RF Held acetaminophen-codeine 300-60 mg tablet 1 tab PO Q6H Qty: 100 0RF Hold Instructions: Resume on 12/19/22. ibuprofen 200 mg Tablet 600 mg PO PRN PRN (Reason: Pain) Hold Instructions: Resume on 12/15/22. Discharge Orders: Discharge Order (Routine); Ordered 12/12/22 Ordered By: Nick Rutledge Referrals: Nick Rutledge DO [Physician] - 2 weeks Discharge Diet: Advance as tolerated Discharge Activity: Resume usual activity Patient Instructions: Opioid Safety Activity Restrictions/Additional Instructions: Do not soak incisions underwater for 2 weeks. Shower daily. You may take half of your pain pill at a time because it is a relatively high dose. Keep drains to suction. Empty at least once daily. Keep dry bandage around drains but bandages over incisions may be removed tomorrow. Do not remove glue Discharge Attestations Time Spent in Discharge Care*: less than 30 min Quality Metrics Clinical Quality Measures [ No reported AMI, CVA or VTE this stay] Coding Level of Care Code Acute Code for Sunitag Fwluis
[2022-12-12 09:40] VITALS: BP 99/53; PULSE 84; RESP 17; TEMP 36.8
[2022-12-12 12:45] VITALS: BP 104/68; PULSE 79; RESP 17; TEMP 36.7; O2SAT 94
[2022-12-12 12:53] VITALS: BP 104/68; PULSE 79; RESP 17; TEMP 36.7; O2SAT 94
--- NOTE | 2022-12-12 12:55 | PC.NURSE ---
left TANYA drain 40mL of serosanguineous drainage, Right TANYA drain 50mL of serosanguineous drainage.
== END 2022-12-12 12:55 | disposition home or self-care (01) ==
LOC: OBGYN 12:58
PROVIDERS: Admitting Provider Surgery; PCP Family Medicine; Visit Provider Surgery
PROC: (CPT 19303; principal; 2022-12-11 10:05)
DX: C50.912 Malignant neoplasm of unspecified site of left female breast (principal)
CPT/HCPCS: 19303; 51702; 88309; 88342; G0378; J1100; J1170; J1885; J2250; J2405; J2704; J3010; J3370; J7030

== ENCOUNTER 2022-12-20 09:32 | Oncology outpatient (recurring) (ONCR) | payer OTHER, SELFPAY ==
[2022-12-20 10:24] LABS: Basophils # 0.1 10^3/uL (0.0-0.1); Basophils % 0.7 %; Eosinophils # 0.3 10^3/uL (0.0-0.8); Eosinophils % 3.8 %; Hematocrit 35.1 % (37.0-47.0); Hemoglobin 11.1 g/dL (11.5-15.3); Lymphocytes # 1.7 10^3/uL (0.8-4.8); Lymphocytes % 23.5 %; Mean Corpuscular HGB Conc 31.6 g/dL (30.0-36.0); Mean Corpuscular Hemoglobin 30.2 pg (28.0-34.0); Mean Corpuscular Volume 95.4 fl (81-99); Mean Platelet Volume 9.6 fL (7.4-10.4); Monocytes # 0.9 10^3/uL (0.2-0.9); Monocytes % 12.9 %; Neutrophils # 4.27 10^3/uL (1.8-7.7); Neutrophils % 58.6 %; Nucleated Red Blood Cells % 0 %; Platelet Count 434 10^3/cmm (130-400); Red Blood Count 3.68 10^6/uL (4.1-5.3); Red Cell Distribution Width 12.2 % (12.1-15.1); White Blood Count 7.3 10^3/uL (4.0-10.0)
[2022-12-20 10:47] LABS: Alanine Aminotransferase 13 U/L (0-33); Albumin Level 3.7 g/dL (3.5-5.2); Alkaline Phosphatase 86 U/L (35-105); Anion Gap 17.5 (5-19); Aspartate Amino Transferase 20 U/L (0-32); Blood Urea Nitrogen 15 mg/dL (8-23); Calcium 8.8 mg/dL (8.5-10.5); Carbon Dioxide 26 mmol/L (22-29); Chloride 103 mmol/L (98-107); Globulin 3.3 g/dL (1.3-4.6); Glomerular Filtration Rate 124.2 mL/min (90-130); Glucose 102 mg/dL (65-115); Osmolality Calculated 295 mOsm/kg (285-295); Potassium 4.5 mmol/L (3.5-5.1); Sodium 142 mmol/L (136-145); Total Bilirubin 0.2 mg/dL (0.15-1.2)
[2023-01-22 16:14] LABS: BRCA 1 & 2 Clinical Interpreta NEGATIVE; BRCA 1&2 Result NEGATIVE
== END 2023-01-05 23:59 | disposition home or self-care (01) ==
PROVIDERS: PCP Family Medicine; Visit Provider Internal Medicine Hematology & Oncology
DX: C50.812 Malignant neoplasm of overlapping sites of left female breast (principal); Z17.0 Estrogen receptor positive status [ER+]; C77.3 Secondary and unspecified malignant neoplasm of axilla and upper limb lymph nodes; Z79.811 Long term (current) use of aromatase inhibitors
CPT/HCPCS: 36415; 80053; 81162; 85025

== ENCOUNTER 2023-01-29 05:52 | Day surgery (SDC) | payer OTHER, SELFPAY ==
[2023-01-26 10:42] VITALS: BMI 29.7
[2023-01-29] VITALS (7 sets, daily range): BP systolic 126–177; BP diastolic 66–92; PULSE 73–82; RESP 14–18; TEMP 36.1–36.2; O2SAT 91–97
[2023-01-29] MEDS: sodium chloride 0.9% 1,000 ML 30 ML IV (06:19)
--- NOTE | 2023-01-29 06:51 | SC_ITS ---
WS: [id number] Exam: C-arm FL for CVA [id number] Date/Time of Exam: 01/29/2023 6:51 AM Reason For Exam: intra-op A single anterior posterior C-arm image of the upper right chest is submitted for evaluation. The image depicts a right subclavian port in place appearing to end near the cavoatrial junction. No obvious pneumothorax. Hardware partially visualized in the lower cervical spine. No other significant finding on this limited study.
--- NOTE | 2023-01-29 06:52 | XR_ITS ---
WS: [id number] Exam: XR chest 1V portable [id number] Date/Time of Exam: 01/29/2023 6:52 AM Reason For Exam: Postop Mediport placement Comparison 01/19/2017. A right subclavian MediPort has been placed and appears to end at the cavoatrial junction in satisfac tory position. Surgical clips superimpose the right and left lower lung zones and also the left axill a. The lungs are fully expanded and clear. No pleural effusions. Normal cardiomediastinal silhouette. Fusion hardware noted in the lower C-spine. XR/XR chest 1V portable [id number] IMPRESSION: 1. No acute cardiopulmonary finding. 2. Right subclavian MediPort in satisfactory position.
--- NOTE | 2023-01-29 06:52 | W.PM.OPSUD ---
Surgery/Procedure H&P Update DATE OF PROCEDURE: January 29, 2023 DATE H&P PERFORMED: 01/09/23 H&P UPDATE INFORMATION: I have reviewed H&P completed within last 30 days, I have examined patient prior to procedure and No changes to prior documentation PREOP DIAGNOSIS: Left breast cancer PLANNED PROCEDURE: Operation Date: 01/29/23 07:00 Proposed Procedures p [id number] port placement C50.919(Not Applicable) - Nick Rutledge DO
[2023-01-29] MEDS: vancomycin 1,000 MG in sodium chloride 0.9% 250 ML 250 MG IV (07:00)
[2023-01-29] MEDS: heparin, porcine 1,000 unit/mL INJ 10 mL 10000 UNIT IRRIGATION (07:24)
[2023-01-29] MEDS: lidocaine-epi 2% 20 mL INJ INJECTION (07:25)
[2023-01-29] MEDS: sodium chloride 0.9% 100 mL Bag XX (07:26)
--- NOTE | 2023-01-29 07:34 | P.ANESASSM_ITS ---
Pre-Anesthetic Assessment Height/Weight: Height 1.7 m Weight 86.183 kg Temp Pulse Resp BP Pulse Ox O2 Del Method 97.0 F L 73 18 134/92 97 Room Air 01/29/23 06:05 01/29/23 06:05 01/29/23 06:05 01/29/23 06:05 01/29/23 06:05 01/29/23 06:11 Preop Diagnosis: Left breast cancer Operation Date: 01/29/23 07:00 Proposed Procedures p [id number] port placement C50.919(Not Applicable) - Nick Rutledge DO Familial anesthetic complications: none Was Beta Debi taken within 24 hours: N/A Last intake: Intake Last Liquid Date 01/28/23 Last Liquid Time 20:30 Last Solid Date 01/28/23 Last Solid Time 20:30 Social No alcohol and No tobacco Exam alert, oriented x 3, clear to auscultation bilaterally and regular rate & rhythm Airway Submandibular: within normal limits Cervical ROM: within normal limits Mallampati: Class II Dentition: full Musc/skel Lower Back Pain and Osteoarthritis/DJD chronic pain Neuropsych Anxiety Anesthetic Plan ASA status: 2 Anesthesia: Choice Medications/Allergies Home Medications Medication Instructions Recorded Confirmed Last Taken Type ibuprofen 200 mg tablet 600 mg PO PRN PRN Pain 05/19/22 01/26/23 09/07/22 History acetaminophen 300 mg-codeine 60 mg 1 tab PO Q6H #100 tabs 10/23/22 01/26/23 01/27/23 Rx tablet escitalopram oxalate 20 mg tablet 20 mg PO DAILY #90 tabs 10/23/22 01/29/23 01/29/23 Rx (Lexapro) lorazepam 1 mg tablet 1 mg PO BID PRN anxiety #60 tabs 10/23/22 01/26/23 01/28/23 Rx docusate sodium 100 mg capsule 100 mg PO BID #20 caps 12/12/22 01/29/23 01/26/23 Rx (DOK) hydrocodone 10 mg-acetaminophen 1 tab PO Q4H PRN pain #40 tabs 12/12/22 01/26/23 Unknown Rx 325 mg tablet hydrocodone 10 mg-acetaminophen 1 tab PO Q6H PRN pain 5 days #20 12/19/22 01/26/23 Unknown Rx 325 mg tablet tabs Allergies Allergy/AdvReac Type Severity Reaction Status Date / Time Penicillins Allergy Intermediate rash Verified 01/09/23 09:13 morphine AdvReac Intermediate can't void Verified 01/09/23 09:13 promethazine [From Phenergan] AdvReac Intermediate vomiting Verified 01/09/23 09:13 Current Medications Generic Name Dose Route Start Last Admin Trade Name Gi PRN Reason Stop Dose Admin Sodium Chloride 1,000 mls @ 30 mls/hr 01/29/23 06:00 01/29/23 06:19 Sodium Chloride 0.9% IV 01/30/23 05:59 30 mls/hr .Q24H ANY Administration Vancomycin HCl 1,000 mg/ 250 mls @ 250 mls/hr 01/29/23 06:52 01/29/23 07:00 Sodium Chloride IV 01/29/23 07:51 250 mls/hr EMAIL DES[employer] ONE Administration Protocol [facility] Anesthesia Medical History Arthritis Cervical disc disorder with myelopathy of mid-cervical region History of depression Hx of anxiety disorder Hx of insomnia Hx of sleep apnea Instability of joint Seasonal allergies Urolithiasis Surgical History History of bilateral mastectomy History of cervical spinal surgery (~2019) 01/26/2020 Dr. Lauren Barba. 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
--- NOTE | 2023-01-29 07:46 | P.OP_ITS ---
Operative Report Date of procedure: January 29, 2023 Pre-op diagnosis: Preop Diagnosis Left breast cancer Post-op diagnosis: same Procedure done: Mediport insertion Implants: PowerPort Surgeon: Dr. Nick Rutledge, DO Anesthesia: MAC Estimated blood loss (mL): 5 Complications: None apparent Brief History: This very pleasant 62-year-old female who had left breast cancer and underwent bilateral mastectomies and left axillary node dissection. Oncology requested Mediport insertion for chemotherapy access. The risk and benefits were explained and documented. Procedure: The patient was taken to the operating room and placed supine on the operating room table. All bony prominences were padded. She was given IV sedation and monitored throughout the case by the anesthesia personnel. SCDs were placed and turned on. The arms were tucked to the side. Patient received Ancef 2 g preoperatively IV. The bilateral chest wall was prepped and draped in usual sterile fashion using chlorhexidine base prep. Sterile drapes were applied. We did procedure pause prior to beginning. An 18 gauge needle was placed in the right subclavian vein. Dark, nonpulsatile blood was aspirated. A guidewire was placed through the needle centrally toward the atrial/vena caval junction. Fluoroscopy visualized good placement. The needle was removed and the guidewire was clipped to the drape with a hemostat. Further local anesthetic was infiltrated in the soft tissues of the right chest wall and a #15 blade was used to make a horizontal skin incision. A subcutaneous Mediport pocket was created using Bovie cautery, dissecting down through the skin and subcutaneous tissues. Meticulous hemostasis was achieved. The Mediport was sutured in position using 3-0 vicryl suture x2 stitches. A #15 blade was used to make a small skin armando around the guidewire insertion area. The Mediport tubing was tunneled through the subcutaneous tissues up to the needle insertion location. A dilator with a peel-away sheath was placed over the guidewire and placed centrally. After measuring the Mediport tubing was cut to length so that the tip would end at the atrial/vena caval junction. The inner cannula and the guidewire were removed, leaving the dilator sheath in place. The Mediport was flushed. The tip of the catheter was inserted through the peel-away sheath and the peel-away sheath removed in the standard fashion. The Mediport was accessed with a straight Sosa needle and dark, nonpulsatile blood was aspirated and flushed using heparinized saline to hep-lock the Mediport. Final fluoroscopy visualizat ion showed no kink in the catheter and the tip of the Mediport tubing near the atrial/vena caval junction. Both skin incisions were thoroughly irrigated and suctioned dry. Meticulous hemostasis noted. The dermis was approximated with 3-0 Vicryl in an interrupted fashion. Skin was closed with Dermabond. Patient was awakened from anesthesia and transferred via her cart to the recovery room in stable condition. All needle, sponge, and instrument counts were correct per the operating personnel x2 counts.
--- NOTE | 2023-01-29 15:10 | ANE.PACU2 ---
Inpatient post-anesthesia follow up: Airway intact: Yes Vital signs: Temperature 97.2 F Pulse Rate 82 Respiratory Rate 14 Blood Pressure 177/83 Pulse Oximetry 96 Oxygen Delivery Me thod Room Air Oxygen Flow Rate Fraction of Inspir ed Oxygen Hydration adequate: Yes Nausea and vomiting: No Pain level: 2 Mental status: Baseline
== END 2023-01-29 09:05 | disposition home or self-care (01) ==
PROVIDERS: PCP Family Medicine; Visit Provider Surgery
PROC: (CPT 36561; principal; 2023-01-29 07:00)
DX: C50.912 Malignant neoplasm of unspecified site of left female breast (principal); Z79.899 Other long term (current) drug therapy; Z90.13 Acquired absence of bilateral breasts and nipples; Z88.0 Allergy status to penicillin
CPT/HCPCS: 36561; 71045; 76000; 77001; C1788; J1644; J2250; J2704; J3010; J3370; J7030; J7050

== ENCOUNTER 2023-02-02 09:09 | Oncology outpatient (recurring) (ONCR) | payer OTHER, SELFPAY ==
[2023-02-01 09:34] LABS: Basophils % 0.5 %; Eosinophils # 0.6 10^3/uL (0.0-0.8); Eosinophils % 9.9 %; Hematocrit 38.9 % (37.0-47.0); Hemoglobin 12.6 g/dL (11.5-15.3); Lymphocytes % 31.9 %; Mean Corpuscular HGB Conc 32.4 g/dL (30.0-36.0); Mean Corpuscular Hemoglobin 29.4 pg (28.0-34.0); Mean Corpuscular Volume 90.9 fl (81-99); Mean Platelet Volume 10.1 fL (7.4-10.4); Monocytes # 0.7 10^3/uL (0.2-0.9); Monocytes % 11.7 %; Neutrophils # 2.82 10^3/uL (1.8-7.7); Neutrophils % 45.8 %; Nucleated Red Blood Cells % 0 %; Platelet Count 285 10^3/cmm (130-400); Red Blood Count 4.28 10^6/uL (4.1-5.3); Red Cell Distribution Width 12.5 % (12.1-15.1); White Blood Count 6.2 10^3/uL (4.0-10.0)
[2023-02-01 09:57] LABS: Alanine Aminotransferase 19 U/L (0-33); Albumin Level 4.3 g/dL (3.5-5.2); Alkaline Phosphatase 82 U/L (35-105); Anion Gap 14.1 (5-19); Aspartate Amino Transferase 16 U/L (0-32); Blood Urea Nitrogen 17 mg/dL (8-23); Calcium 8.9 mg/dL (8.5-10.5); Carbon Dioxide 25 mmol/L (22-29); Chloride 105 mmol/L (98-107); Globulin 2.9 g/dL (1.3-4.6); Glomerular Filtration Rate 124.2 mL/min (90-130); Glucose 101 mg/dL (65-115); Osmolality Calculated 292 mOsm/kg (285-295); Potassium 4.1 mmol/L (3.5-5.1); Sodium 140 mmol/L (136-145); Total Bilirubin 0.3 mg/dL (0.15-1.2); Total Protein 7.2 g/dL (6.6-8.7)
[2023-02-01] MEDS: sodium chloride 0.9% 250 ML 75 ML IV (14:20)
[2023-02-01] MEDS: OLANZapine 5 mg TABLET PO (14:21)
[2023-02-01] MEDS: palonosetron 0.25 mg/5 mL SDV IVP (14:22)
[2023-02-01] MEDS: diphenhydrAMINE 50 mg/mL SDV 1mL 25 MG IVP (14:59)
[2023-02-01] MEDS: famotidine 20 mg/2 mL INJ IVP (15:07)
[2023-02-01] MEDS: fosaprepitant 150 MG in sodium chloride 0.9% 150 ML 300 MG IV (15:15)
[2023-02-01] MEDS: cyclophosphamide 1,000 MG, cyclophosphamide 200 MG in sodium chloride 0.9% 500 ML 500 MG IV (15:41)
[2023-02-01 17:55] VITALS: BP 114/72; PULSE 70; RESP 18; TEMP 36.6; O2SAT 98
[2023-02-02 09:15] VITALS: BP 127/77; PULSE 88; TEMP 36.9; O2SAT 94
[2023-02-02] MEDS: pegfilgrastim-bmez 6 mg/0.6 mL SYR SUBCUT (09:22)
== END 2023-02-04 23:59 | disposition home or self-care (01) ==
PROVIDERS: Internal Medicine Medical Oncology; PCP Family Medicine; Visit Provider Internal Medicine Hematology & Oncology
DX: C50.412 Malignant neoplasm of upper-outer quadrant of left female breast (principal)
CPT/HCPCS: 80053; 85025; 96367; 96372; 96375; 96413; 96417; J1100; J1200; J1453; J2469; J3490; J7040; J7050; J9070; J9171; Q5120

== ENCOUNTER 2023-03-02 11:30 | Oncology outpatient (recurring) (ONCR) | payer OTHER, SELFPAY ==
[2023-02-08 11:46] LABS: Basophils % 0.1 %; Eosinophils % 0.2 %; Hematocrit 38.4 % (37.0-47.0); Hemoglobin 12.2 g/dL (11.5-15.3); Lymphocytes # 1.3 10^3/uL (0.8-4.8); Lymphocytes % 14.7 %; Mean Corpuscular HGB Conc 31.8 g/dL (30.0-36.0); Mean Corpuscular Hemoglobin 29.5 pg (28.0-34.0); Mean Platelet Volume 10.4 fL (7.4-10.4); Monocytes % 11.9 %; Neutrophils # 4.67 10^3/uL (1.8-7.7); Neutrophils % 53.6 %; Nucleated Red Blood Cells % 0 %; Platelet Count 268 10^3/cmm (130-400); Red Blood Count 4.13 10^6/uL (4.1-5.3); Red Cell Distribution Width 12.5 % (12.1-15.1); White Blood Count 8.7 10^3/uL (4.0-10.0)
[2023-02-08 11:57] VITALS: BP 136/83; PULSE 74; RESP 18; TEMP 37; O2SAT 96
[2023-02-08 12:01] LABS: Alanine Aminotransferase 18 U/L (0-33); Albumin Level 3.9 g/dL (3.5-5.2); Alkaline Phosphatase 106 U/L (35-105); Anion Gap 14.8 (5-19); Aspartate Amino Transferase 18 U/L (0-32); Blood Urea Nitrogen 11 mg/dL (8-23); Calcium 8.6 mg/dL (8.5-10.5); Carbon Dioxide 24 mmol/L (22-29); Chloride 103 mmol/L (98-107); Glomerular Filtration Rate 124.2 mL/min (90-130); Glucose 138 mg/dL (65-115); Osmolality Calculated 288 mOsm/kg (285-295); Potassium 3.8 mmol/L (3.5-5.1); Sodium 138 mmol/L (136-145); Total Bilirubin 0.3 mg/dL (0.15-1.2); Total Protein 6.9 g/dL (6.6-8.7)
[2023-02-08 12:07] LABS: Slide Review Slide Review Perform
--- NOTE | 2023-02-08 13:35 | PC.NURSE ---
Patient's called with lab results from today.
[2023-02-15 11:10] VITALS: BP 137/75; PULSE 59; RESP 16; TEMP 36.4; O2SAT 98
[2023-02-15 11:50] VITALS: BP 116/75; PULSE 68; RESP 16; TEMP 36.6; O2SAT 98
[2023-02-15 11:59] LABS: Basophils # 0.1 10^3/uL (0.0-0.1); Basophils % 1.1 %; Hematocrit 35.3 % (37.0-47.0); Hemoglobin 11.6 g/dL (11.5-15.3); Lymphocytes # 1.3 10^3/uL (0.8-4.8); Lymphocytes % 22.8 %; Mean Corpuscular HGB Conc 32.9 g/dL (30.0-36.0); Mean Corpuscular Hemoglobin 30.4 pg (28.0-34.0); Mean Corpuscular Volume 92.7 fl (81-99); Mean Platelet Volume 9.9 fL (7.4-10.4); Monocytes # 0.6 10^3/uL (0.2-0.9); Monocytes % 10.8 %; Neutrophils % 60.8 %; Nucleated Red Blood Cells % 0.5 %; Platelet Count 193 10^3/cmm (130-400); Red Blood Count 3.81 10^6/uL (4.1-5.3); Red Cell Distribution Width 12.9 % (12.1-15.1); White Blood Count 5.6 10^3/uL (4.0-10.0)
[2023-02-15 12:47] LABS: Blood Urea Nitrogen 15 mg/dL (8-23); Calcium 8.3 mg/dL (8.5-10.5); Chloride 107 mmol/L (98-107); Glomerular Filtration Rate 124.2 mL/min (90-130); Potassium 3.8 mmol/L (3.5-5.1); Sodium 140 mmol/L (136-145); Total Bilirubin 0.2 mg/dL (0.15-1.2)
[2023-02-15 13:43] LABS: Alanine Aminotransferase 16 U/L (0-33); Alkaline Phosphatase 79 U/L (35-105); Anion Gap 13.8 (5-19); Aspartate Amino Transferase 16 U/L (0-32); Carbon Dioxide 23 mmol/L (22-29); Globulin 2.5 g/dL (1.3-4.6); Glucose 116 mg/dL (65-115); Osmolality Calculated 292 mOsm/kg (285-295); Total Protein 6.5 g/dL (6.6-8.7)
[2023-02-21 09:05] LABS: Basophils # 0.1 10^3/uL (0.0-0.1); Basophils % 1.3 %; Eosinophils # 0.2 10^3/uL (0.0-0.8); Eosinophils % 3.5 %; Hematocrit 34.9 % (37.0-47.0); Hemoglobin 11.4 g/dL (11.5-15.3); Lymphocytes # 1.2 10^3/uL (0.8-4.8); Lymphocytes % 26.8 %; Mean Corpuscular HGB Conc 32.7 g/dL (30.0-36.0); Mean Corpuscular Volume 91.8 fl (81-99); Monocytes # 0.8 10^3/uL (0.2-0.9); Neutrophils # 2.29 10^3/uL (1.8-7.7); Neutrophils % 49.5 %; Nucleated Red Blood Cells % 0 %; Platelet Count 305 10^3/cmm (130-400); Red Cell Distribution Width 13.3 % (12.1-15.1); White Blood Count 4.6 10^3/uL (4.0-10.0)
[2023-02-21 09:23] LABS: Alanine Aminotransferase 20 U/L (0-33); Albumin Level 3.9 g/dL (3.5-5.2); Alkaline Phosphatase 78 U/L (35-105); Anion Gap 13.4 (5-19); Aspartate Amino Transferase 28 U/L (0-32); Blood Urea Nitrogen 18 mg/dL (8-23); Calcium 8.6 mg/dL (8.5-10.5); Carbon Dioxide 27 mmol/L (22-29); Chloride 105 mmol/L (98-107); Globulin 2.7 g/dL (1.3-4.6); Glomerular Filtration Rate 124.2 mL/min (90-130); Glucose 98 mg/dL (65-115); Osmolality Calculated 294 mOsm/kg (285-295); Potassium 4.4 mmol/L (3.5-5.1); Sodium 141 mmol/L (136-145); Total Bilirubin 0.3 mg/dL (0.15-1.2); Total Protein 6.6 g/dL (6.6-8.7)
[2023-02-22] MEDS: sodium chloride 0.9% 250 ML 100 ML IV (11:41)
[2023-02-22] MEDS: OLANZapine 5 mg TABLET PO (11:43)
[2023-02-22] MEDS: diphenhydrAMINE 50 mg/mL SDV 1mL 25 MG IVP (11:43)
[2023-02-22] MEDS: famotidine 20 mg/2 mL INJ IVP (11:44)
[2023-02-22] MEDS: palonosetron 0.25 mg/5 mL SDV IVP (11:53)
[2023-02-22] MEDS: cyclophosphamide 1,000 MG, cyclophosphamide 200 MG in sodium chloride 0.9% 500 ML 500 MG IV (12:26)
[2023-02-22] MEDS: DOCEtaxeL 149 MG in sodium chloride 0.9%(non-DEHP) 250 ML 257.45 MG IV (13:43)
[2023-02-22] MEDS: fosaprepitant 150 MG in sodium chloride 0.9% 150 ML 300 MG IV (14:44)
[2023-02-22 15:33] VITALS: BP 115/68; PULSE 88; TEMP 36.7; O2SAT 97
[2023-03-01 14:12] LABS: Basophils % 2.9 %; Eosinophils # 0.1 10^3/uL (0.0-0.8); Eosinophils % 4.8 %; Hematocrit 32.9 % (37.0-47.0); Hemoglobin 10.5 g/dL (11.5-15.3); Lymphocytes # 0.6 10^3/uL (0.8-4.8); Lymphocytes % 53.8 %; Mean Corpuscular HGB Conc 31.9 g/dL (30.0-36.0); Mean Corpuscular Hemoglobin 29.7 pg (28.0-34.0); Mean Corpuscular Volume 92.9 fl (81-99); Mean Platelet Volume 10.4 fL (7.4-10.4); Monocytes # 0.2 10^3/uL (0.2-0.9); Monocytes % 15.4 %; Nucleated Red Blood Cells % 0 %; Platelet Count 278 10^3/cmm (130-400); Red Blood Count 3.54 10^6/uL (4.1-5.3); Red Cell Distribution Width 13.2 % (12.1-15.1)
[2023-03-01 14:31] LABS: Alanine Aminotransferase 22 U/L (0-33); Albumin Level 3.8 g/dL (3.5-5.2); Alkaline Phosphatase 58 U/L (35-105); Anion Gap 13.4 (5-19); Aspartate Amino Transferase 21 U/L (0-32); Blood Urea Nitrogen 15 mg/dL (8-23); Calcium 8.8 mg/dL (8.5-10.5); Carbon Dioxide 26 mmol/L (22-29); Chloride 107 mmol/L (98-107); Globulin 2.4 g/dL (1.3-4.6); Glomerular Filtration Rate 124.2 mL/min (90-130); Glucose 89 mg/dL (65-115); Osmolality Calculated 294 mOsm/kg (285-295); Potassium 4.4 mmol/L (3.5-5.1); Sodium 142 mmol/L (136-145); Total Bilirubin 0.2 mg/dL (0.15-1.2); Total Protein 6.2 g/dL (6.6-8.7)
[2023-03-01 15:17] LABS: Slide Review Slide Review Perform
[2023-03-01 15:18] LABS: Neutrophils % 23.1 %
[2023-03-01 15:19] LABS: Neutrophils # 0.23 10^3/uL (1.8-7.7)
[2023-03-01] MEDS: filgrastim-sndz 480 mcg/0.8 mL Syringe SUBCUT (16:44)
[2023-03-01 16:49] VITALS: BP 117/74; PULSE 74; RESP 18; TEMP 36.6; O2SAT 98
--- NOTE | 2023-03-01 16:50 | PC.NURSE ---
Patient's labs reviewed by Dr Barahona with the need for the injection of neupogen or zarxio. Patient waiting now for the insurance approval. PA noted for the Zarxio. mm
[2023-03-02 11:20] VITALS: BP 121/72; PULSE 64; RESP 18; TEMP 36.6; O2SAT 98
[2023-03-02] MEDS: filgrastim-sndz 480 mcg/0.8 mL Syringe SUBCUT (11:24)
== END 2023-03-07 23:59 | disposition home or self-care (01) ==
PROVIDERS: Internal Medicine Medical Oncology; Nurse Practitioner Family; PCP Family Medicine; Visit Provider Internal Medicine Hematology & Oncology
DX: C50.412 Malignant neoplasm of upper-outer quadrant of left female breast
CPT/HCPCS: 36415; 36591; 80053; 85025; 96367; 96372; 96375; 96402; 96413; 96417; J1100; J1200; J1453; J1642; J2469; J3490; J7040; J7050; J9070; J9171; Q5101

== ENCOUNTER 2023-03-19 11:15 | Inpatient (IN) | payer OTHER, SELFPAY ==
[2023-03-19] VITALS (7 sets, daily range): BP systolic 112–130; BP diastolic 65–76; PULSE 86–112; RESP 11–18; TEMP 36.7–37; O2SAT 94–99
--- NOTE | 2023-03-19 12:00 | XR_ITS ---
WS: [id number] PORTABLE CHEST HISTORY: dyspnea/cough COMPARISON: 01/29/2023 RIGHT subclavian Port-A-Cath. Stable nodule RIGHT lung base. No pneumonia. No fluid overload. No pleural effusion or pneumothorax. Cardiac size: Normal. Mediastinum/Aorta: Normal mediastinum. LEFT axillary surgical clips. Additional clips over the lower chest wall. No osseous abnormality seen. XR/XR chest 1V portable [id number] IMPRESSION: 1. No pneumonia. 2. Stable chest.
--- NOTE | 2023-03-19 12:31 | PC.NURSE ---
Patient not in waiting room
[2023-03-19 12:45] LABS: Basophils % 0.6 %; Eosinophils # 0.1 10^3/uL (0.0-0.8); Eosinophils % 3.4 %; Hematocrit 36.3 % (37.0-47.0); Hemoglobin 11.6 g/dL (11.5-15.3); Lymphocytes # 0.4 10^3/uL (0.8-4.8); Lymphocytes % 13.8 %; Mean Corpuscular Hemoglobin 29.4 pg (28.0-34.0); Mean Corpuscular Volume 91.9 fl (81-99); Mean Platelet Volume 10.2 fL (7.4-10.4); Monocytes # 0.1 10^3/uL (0.2-0.9); Monocytes % 1.9 %; Neutrophils # 2.54 10^3/uL (1.8-7.7); Neutrophils % 79.7 %; Nucleated Red Blood Cells % 0 %; Platelet Count 250 10^3/cmm (130-400); Red Blood Count 3.95 10^6/uL (4.1-5.3); Red Cell Distribution Width 14.8 % (12.1-15.1); White Blood Count 3.2 10^3/uL (4.0-10.0)
--- NOTE | 2023-03-19 13:03 | W.ED.GENADLT ---
HPI - General Adult General: Chief complaint: General Medical Stated complaint: sent from oncology for port removal Time Seen by Provider: 03/19/23 11:58 Source: patient Mode of arrival: ambulatory History of Present Illness: 62-year-old female presents to the emergency room patient has stage IIIa breast cancer. Oncology notes reviewed. She recently had her initial chemotherapy. She is undergone lumpectomy there is positive margins with 6 of 7 lymph nodes positive she went back for bilateral mastectomy had a PICC line placed has received her first round of chemo which she did well. She has developed redness and inflammation overlying the port site wound is started to dehisce and she has purulent drainage from she is evaluated at the cancer center today and referred here. She is otherwise been doing well. She is not currently on any oral antibiotics. PICC line was placed she states about 6 weeks ago. She denies fever sweats or chills. Onset (ago): day(s) Location: chest Radiation: non-radiation Pain Consistency: constant Relieving factors: none Exacerbating factors: none Associated symptoms: Deny chest pain, confusion, cough, diaphoresis, decreased appetite, dyspnea, fevers/chills, headache(s), malaise, nausea, rash, palpitations, seizures, short of breath, syncope, vomiting or weakness Treatments prior to arrival: none Review of Systems Const: Denies: fever(s), chills, malaise or diaphoresis ENMT: Denies: throat pain, ear or mastoid pain, nasal discharge or nasal congestion Card: Denies: chest pain, palpitations or syncope Resp: Denies: dyspnea GI: Denies: abdominal pain, nausea or vomiting : Denies: flank pain, difficulty voiding, dysuria, urinary frequency or urinary urgency Skin/Breast: Denies: rash Neuro: Denies: headache(s) or confusion PFSH ED PFSH: Medical History Breast cancer Cervical disc disorder with myelopathy of mid-cervical region Degenerative arthritis History of depression Hx of anxiety disorder Hx of insomnia Hx of sleep apnea Instability of joint Seasonal allergies Urolithiasis Surgical History History of bilateral mastectomy (12/11/22) History of cervical spinal surgery (2019) 01/26/2020 Dr. Lauren Barba. C5-C6, C6-C7 ACDFF History of left breast biopsy (09/26/22) Ultrasound-guided biopsies of left breast and left axillary lymph nodes History of lumpectomy of left breast (11/08/22) History of open reduction and internal fixation (ORIF) procedure Hx of appendectomy Hx of cholecystectomy Hx of elbow surgery Hx of hysterectomy Hx of total knee arthroplasty Port-A-Cath in place S/P ureteral stent placement Family History Mother Diabetes Pacemaker Father , at age 91 Aortic stenosis Other No pertinent family history Social History Smoking and tobacco status: never smoked Alcohol intake: never Substance/Drug Use: never Household members: spouse Marital status: Current occupational status: employed 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 Wound culture done. It is reddened and inflamed swollen. Resp: COMMON NORMALS: normal respiratory effort, No retractions, No use of accessory muscles and clear to auscultation bilaterally AUSCULTATION: clear to auscultation bilaterally Cardio: COMMON NORMALS: regular rhythm and No murmurs present (Cardio) RATE: tachycardic RHYTHM: regular rhythm GI: COMMON NORMALS: Soft to palpation and No hepatosplenomegaly present AUSCULTATION: Yes normoactive bowel sounds PALPATION: Yes Soft to palpation, No Tenderness to palpation present (GI), No Guarding due to palpation present (GI) and Yes No hepatosplenomegaly present Extremity: COMMON NORMALS: normal to inspection, capillary refill normal, no clubbing, cyanosis or edema, no calf tenderness and no pedal edema Neuro: SENSORIUM/ORIENTATION: Yes oriented to person, Yes oriented to place and Yes oriented to time Skin: COMMON NORMALS: no rashes or lesions noted GENERAL SKIN EXAM: no rashes or lesions noted Course Vital Signs: Vital signs: Vital Signs Temperature 97.6 F 03/20/23 06:09 Pulse Rate 102 H 03/20/23 06:09 Respiratory Rate 18 03/20/23 06:09 Blood Pressure 118/69 03/20/23 06:09 Pulse Oximetry 95 03/20/23 06:09 Oxygen Delivery Me thod Room Air 03/20/23 06:09 MDM - General Adult Medical Decision Making Culture taken from the wound drainage. We will admit started on vancomycin discussed Dr. Rutledge and with hospitalist. She will need to have the port removed because the infection will temporarily need a PICC line and a later date once the concerns of infection are resolved for replacement of the PowerPort. Discussed with patient she expresses understanding of this Dr. Rutledge asked that she be n.p.o. after midnight for port removal in the morning. Discussed with house wirer to set up for PICC line placement in the morning. Medical Records I reviewed the patient's medical records. Lab Data I reviewed the patient's lab results. 03/20/23 04:33 03/20/23 04:33 Radiology Impressions Chest X-Ray 03/19/23 12:00 IMPRESSION: 1. No pneumonia. 2. Stable chest. Laboratory Results WBC 3.2 10^3/uL (4.0-10.0) L 03/19/23 12: RBC 3.95 10^6/uL (4.1-5.3) L 03/19/23 12: Hgb 11.6 g/dL (11.5-15.3) 03/19/23 12:23 Hct 36.3 % (37.0-47.0) L 03/19/23 12:23 MCV 91.9 fl (81-99) 03/19/23 12: MCH 29.4 pg (28.0-34.0) 03/19/23 12: MCHC 32.0 g/dL (30.0-36.0) 03/19/23 12: RDW 14.8 % (12.1-15.1) 03/19/23 12: Plt Count 250 10^3/cmm (130-400) 03/19/23 12:23 MPV 10.2 fL (7.4-10.4) 03/19/23 12: Neut % (Auto) 79.7 % 03/19/23 12: Lymph % (Auto) 13.8 % 03/19/23 12: [place] % (Auto) 1.9 % 03/19/23 12: Eos % (Auto) 3.4 % 03/19/23 12: Baso % (Auto) 0.6 % 03/19/23 12: Neut # (Auto) 2.54 10^3/uL (1.8-7.7) 03/19/23 12: Lymph # (Auto) 0.4 10^3/uL (0.8-4.8) L 03/19/23: [place] # (Auto) 0.1 10^3/uL (0.2-0.9) L 03/19/23 12: Eos # (Auto) 0.1 10^3/uL (0.0-0.8) 03/19/23: Baso # (Auto) 0.0 10^3/uL (0.0-0.1) 03/19/23 12: Nucleated RBC % (auto) 0 % 03/19/23: Nucleated RBCs # 0.0 /100WBC 03/19/23 12: Sodium 138 mmol/L (136-145) 03/19/23 12: Potassium 4.1 mmol/L (3.5-5.1) 03/19/23: Chloride 103 mmol/L (98-107) 03/19/23 12: Carbon Dioxide 25 mmol/L (22-29) 03/19/23 12: Anion Gap 14.1 (5-19) 03/19/23 12: BUN 14 mg/dL (8-23) 03/19/23 12: Creatinine 0.4 mg/dL (0.5-0.9) L 03/19/23 12: GFR Calculation 160.7 mL/min (90-130) H 03/19/23 12:23 Glucose 94 mg/dL (65-115) 03/19/23 12: Calculated Osmolality 286 mOsm/kg (285-295) 03/19/23 12:23 Lactic Acid 1.5 mmol/L (0.5-2.2) 03/19/23 12: Calcium 8.7 mg/dL (8.5-10.5) 03/19/23 12: Total Bilirubin 0.5 mg/dL (0.15-1.2) 03/19/23 12: AST 16 U/L (0-32) 03/19/23 12: ALT 18 U/L (0-33) 03/19/23 12: Alkaline Phosphatase 75 U/L (35-105) 03/19/23 12: Total Protein 6.9 g/dL (6.6-8.7) 03/19/23 12: Albumin 4.1 g/dL (3.5-5.2) 03/19/23 12: Globulin 2.8 g/dL (1.3-4.6) 03/19/23 12: Procalcitonin 0.07 ng/mL (0-0.5) 03/19/23 12: Urine Color Yellow (Yellow) 03/19/23 13:34 Urine Appearance Clear (CLEAR) 03/19/23 13:34 Urine pH 5 (5-7) 03/19/23 13:34 Ur Specific [place] 1.020 (1.005-1.030) 03/19/23 13:34 Urine Protein Neg (Negative) 03/19/23 13:34 Urine Glucose (UA) Norm (Normal) 03/19/23 13:34 Urine Ketones Negative (Negative) 03/19/23 13:34 Urine Blood Neg (Negative) 03/19/23 13:34 Urine Nitrate Negative (Negative) 03/19/23 13:34 Urine Bilirubin Neg (Negative) 03/19/23 13:34 Urine Urobilinogen Norm mg/dL (Negative) 03/19/23 13:34 Ur Leukocyte Esterase Negative (Negative) 03/19/23 13:34 Discharge Plan Discharge Patient Disposition: Placed in Observation Admit Provider: Byron Davis Clinical Impression: Cellulitis, Infiltrating ductal carcinoma of upper-outer quadrant of left breast in female Coding Level of Care Code ED Store Facility Technician for [facility] Barry
--- NOTE | 2023-03-19 13:05 | ECG_ITS ---
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 Measurements Intervals [place] Rate: 89 P: 50 [place]: 143 QRS: 46 QRSD: 102 T: 12 QT: 345 QTc: 421 Interpretive Statements SINUS RHYTHM LOW QRS VOLTAGE IN PRECORDIAL LEADS [QRS DEFLECTION < 1.0 mV IN CHEST LEADS] NONSPECIFIC T-WAVE ABNORMALITY No previous ECG available for comparison Electronically Signed On 03-19-2023 16:51:34 CDT by Teena Gonzalez M.D. [email or web address]
[2023-03-19] MEDS: sodium chloride 0.9% 2,449.41 ML 2449.41 ML IV (13:15)
[2023-03-19 13:20] LABS: Lactic Sepsis W/Reflex 1.5 mmol/L (0.5-2.2)
[2023-03-19 13:22] LABS: Alanine Aminotransferase 18 U/L (0-33); Albumin Level 4.1 g/dL (3.5-5.2); Alkaline Phosphatase 75 U/L (35-105); Anion Gap 14.1 (5-19); Aspartate Amino Transferase 16 U/L (0-32); Blood Urea Nitrogen 14 mg/dL (8-23); Calcium 8.7 mg/dL (8.5-10.5); Carbon Dioxide 25 mmol/L (22-29); Chloride 103 mmol/L (98-107); Globulin 2.8 g/dL (1.3-4.6); Glomerular Filtration Rate 160.7 mL/min (90-130); Glucose 94 mg/dL (65-115); Osmolality Calculated 286 mOsm/kg (285-295); Potassium 4.1 mmol/L (3.5-5.1); Sodium 138 mmol/L (136-145); Total Bilirubin 0.5 mg/dL (0.15-1.2); Total Protein 6.9 g/dL (6.6-8.7)
--- NOTE | 2023-03-19 13:30 | PC.NURSE ---
pt placed on continuous spo2, nibp, and cm.
[2023-03-19 13:54] LABS: Add Urine Microscopic? NO; Charge for UA Resulting for Rev
[2023-03-19 14:03] LABS: Bilirubin Urine Neg (Negative); Blood Urine Neg (Negative); Glucose Urine UA Norm (Normal); Ketones Urine Negative (Negative); Leukocyte Esterase Urine Negative (Negative); Nitrate Urine Negative (Negative); Protein Urine Neg (Negative); Urine Appearance Clear (CLEAR); Urine Color Yellow (Yellow); Urobilinogen Urine Norm (Negative); pH Urine 5 (5-7)
--- NOTE | 2023-03-19 14:13 | P.HP_ITS ---
Providers/Chief Complaint Primary Care Provider: Alejandro Hopper MD Chief Complaint: sent from oncology for port removal History of Present Illness Shanique Devi is a 62 year old female who has history of breast cancer status postmastectomy, status post Mediport placement by Dr. Rutledge, was referred to the hospital for port removal. Patient has not experienced any nausea, vomiting, fever, chills. She is leading her normal daily life. She has not noticed any symptoms at all. She is stating that she noticed a pimple about a week ago, poked it and noticed yellow discharge from the pimple and then she started noticing some redness around it, she was told by the oncology clinic to keep it dry however it has gotten worse that is why she has been referred to the hospital for port removal. Dr. Rutledge has been notified by the ER physician. Review of Systems Const: Denies: fever(s) Eyes: Denies: change in vision ENMT: Denies: throat pain Card: Denies: chest pain Resp: Denies: dyspnea GI: Denies: abdominal pain : Denies: flank pain Musc: Denies: neck pain Skin/Breast: Denies: rash Neuro: Denies: headache(s) Psych: Denies: anxiety Endo: Denies: polyuria Henrik/Lymph: Denies: easy bruising Medications/Allergies Home Medications Medication Instructions Recorded Confirmed Last Taken Type acetaminophen 300 mg-codeine 60 mg 1 tab PO Q6H #100 tabs 10/23/22 03/15/23 01/27/23 Rx tablet escitalopram oxalate 20 mg tablet 20 mg PO DAILY #90 tabs 10/23/22 03/15/23 01/29/23 Rx (Lexapro) docusate sodium 100 mg capsule 100 mg PO BID #20 caps 12/12/22 03/15/23 01/26/23 Rx (DOK) dexamethasone 4 mg tablet 8 mg PO DIRECTED #60 tabs 02/01/23 03/15/23 Unknown Rx lidocaine-prilocaine 2.5 %-2.5 % 1 applic topical ONCE #30 grams 02/01/23 03/15/23 Unknown Rx topical cream lorazepam 1 mg tablet 0.5 - 1 mg PO Q6H PRN Severe 02/01/23 03/15/23 Unknown Rx Nausea #30 tabs ondansetron HCl 4 mg tablet 4 mg PO QID PRN Nausea/vomiting 02/01/23 03/15/23 Unknown Rx #30 tabs prochlorperazine maleate 10 mg 10 mg PO Q4H PRN Mild Nausea #30 02/01/23 03/15/23 Unknown Rx tablet (Compazine) tabs levofloxacin 500 mg tablet 500 mg PO DAILY #5 tabs 03/01/23 03/15/23 Unknown Rx hydrocodone 10 mg-acetaminophen 1 tab PO Q6H PRN pain 5 days #20 03/15/23 03/15/23 Unknown Rx 325 mg tablet tabs Allergies Allergy/AdvReac Type Severity Reaction Status Date / Time Penicillins Allergy Intermediate rash Verified 03/15/23 11:30 morphine AdvReac Intermediate can't void Verified 03/15/23 11:30 promethazine [From Phenergan] AdvReac Intermediate vomiting Verified 03/15/23 11:30 PFSH Acute PFSH: Medical History Breast cancer Cervical disc disorder with myelopathy of mid-cervical region Degenerative arthritis History of depression Hx of anxiety disorder Hx of insomnia Hx of sleep apnea Instability of joint Seasonal allergies Urolithiasis Surgical History History of bilateral mastectomy (12/11/22) History of cervical spinal surgery (2019) 01/26/2020 Dr. Lauren Barba. C5-C6, C6-C7 ACDFF History of left breast biopsy (09/26/22) Ultrasound-guided biopsies of left breast and left axillary lymph nodes History of lumpectomy of left breast (11/08/22) History of open reduction and internal fixation (ORIF) procedure Hx of appendectomy Hx of cholecystectomy Hx of elbow surgery Hx of hysterectomy Hx of total knee arthroplasty Port-A-Cath in place S/P ureteral stent placement Family History Mother Diabetes Pacemaker Father , at age 91 Aortic stenosis Other No pertinent family history Social History Smoking and tobacco status: never smoked Alcohol intake: never Substance/Drug Use: never Household members: spouse Marital status: Current occupational status: employed 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 Vitals/I&O/Wt Last Vital Signs Temp 98.0 F 03/19/23 11:22 Pulse 112 H 03/19/23 11:22 Resp 18 03/19/23 11:22 BP 117/70 03/19/23 11:22 Pulse Ox 99 03/19/23 11:22 O2 Del Method Room Air 03/19/23 11:22 Weight last 48 hrs Weight 81.647 kg Physical Exam Narrative: Erythema with purulent discharge around Mediport area Patient is sitting Doing well on room air Nonfocal neuro exam S1, S2 Abdomen soft Nonfocal neuro exam Pleasant and cooperative Appears stated age Well-hydrated Data 03/19/23 12:23 03/19/23 12:23 Micro: Microbiology 03/19/23 12:23 Blood Culture - Preliminary Blood SPECIMEN COLLECTED 03/19/23 12:23 Blood Culture - Preliminary Blood SPECIMEN COLLECTED A&P Assessment and plan (1) Cellulitis: (2) Infiltrating ductal carcinoma of upper-outer quadrant of left breast in female: (3) History of bilateral mastectomy: (4) Breast cancer: Plan Mediport area purulent cellulitis Mediport removal by Dr. Rutledge We will keep n.p.o. after midnight I will ask our PICC line team to place a PICC line meanwhile Patient not showing any signs of sepsis Full code Regular diet for today and then n.p.o. after midnight Hold DVT prophylaxis History of sleep apnea CPAP overnight Opioids along bowel regimen for pain I will start her on vancomycin Requested blood cultures along wound cultures, blood cultures will take more th an 48 hours to return Attestations Medical Necessity Statement*: Anticipating more than 2 midnights for port removal Diagnoses Cellulitis L03.90 Infiltrating ductal carcinoma of upper-outer quadrant of left breast in female C50.412 History of bilateral mastectomy Z90.13 Breast cancer C50.919
[2023-03-19 15:23] LABS: Procalcitonin 0.07 ng/mL (0-0.5)
--- NOTE | 2023-03-19 16:22 | PC.PHAR ---
PHARMACY TO DOSE CONSULT - VANCOMYCIN With the patient's current labwork and vital signs, we calculated the patient's dose at 1250mg every 8 hours for a predicted peak of 34.8 mcg/ml and trough of 15.89 mcg/ml. Pharmacy will place the trough order prior to the 4th dose and make adjustments as necessary. Please let us know if there is anything else we can do in the care of this patient. Thanks, Cooper Miller, Pharm.D
[2023-03-19] MEDS: vancomycin 1,250 MG/250 ML PIGGYBACK 250 MG IV (17:27)
[2023-03-19] MEDS: sodium chloride 0.9% 1,000 ML 75 ML IV (17:28)
[2023-03-19] MEDS: docusate sodium 100 mg Capsule PO (17:28)
[2023-03-19] MEDS: LORazepam 1 mg Tablet PO (20:14)
[2023-03-20] VITALS (15 sets, daily range): BP systolic 118–159; BP diastolic 59–82; PULSE 85–104; RESP 15–18; TEMP 36.1–37.3; O2SAT 91–97
[2023-03-20] MEDS: vancomycin 1,250 MG/250 ML PIGGYBACK 250 MG IV ×3 (00:37→17:56)
[2023-03-20] MEDS: sodium chloride 0.9% 1,000 ML 75 ML IV (05:06)
[2023-03-20 05:08] LABS: Basophils % 1.1 %; Eosinophils # 0.1 10^3/uL (0.0-0.8); Eosinophils % 4.6 %; Hematocrit 30.5 % (37.0-47.0); Hemoglobin 9.5 g/dL (11.5-15.3); Lymphocytes # 0.4 10^3/uL (0.8-4.8); Mean Corpuscular HGB Conc 31.1 g/dL (30.0-36.0); Mean Platelet Volume 10.3 fL (7.4-10.4); Monocytes # 0.1 10^3/uL (0.2-0.9); Monocytes % 2.8 %; Neutrophils # 2.23 10^3/uL (1.8-7.7); Neutrophils % 78.1 %; Nucleated Red Blood Cells % 0 %; Platelet Count 223 10^3/cmm (130-400); Red Blood Count 3.28 10^6/uL (4.1-5.3); Red Cell Distribution Width 14.7 % (12.1-15.1); White Blood Count 2.9 10^3/uL (4.0-10.0)
[2023-03-20 05:37] LABS: Anion Gap 13.8 (5-19); Blood Urea Nitrogen 10 mg/dL (8-23); C Reactive Protein 47.9 mg/L (0.0-4.9); Calcium 8.1 mg/dL (8.5-10.5); Carbon Dioxide 21 mmol/L (22-29); Chloride 109 mmol/L (98-107); Glucose 135 mg/dL (65-115); Magnesium 1.9 mg/dL (1.7-2.3); Osmolality Calculated 291 mOsm/kg (285-295); Potassium 3.8 mmol/L (3.5-5.1); Sodium 140 mmol/L (136-145)
[2023-03-20] MEDS: sodium chloride 0.9% 1,000 ML 30 ML IV (06:18)
--- NOTE | 2023-03-20 06:26 | PC.NURSE ---
0605: transported to surgery via wheelchair per outpt surgical nurse.
--- NOTE | 2023-03-20 07:16 | PM.CONSULT ---
Providers/Reason For Consult Consulting Physician/Specialty*: Dr. Nick Rutledge, DO/General surgery Reason for Consult*: Port infection Attending Physician: Byron Davis MD Primary Care Provider: Alejandro Hopper MD History of Present Illness History of Present Illness Shanique Devi is a 62 year old female with breast cancer and a Mediport. The Mediport was placed several weeks ago and used multiple times. It has since become infected. Review of Systems General: Reports: 10 or more systems reviewed and unremarkable except in HPI and below Medications/Allergies Home Medications Medication Instructions Recorded Confirmed Last Taken Type docusate sodium 100 mg capsule 100 mg PO BID #20 caps 12/12/22 03/19/23 01/26/23 Rx (DOK) dexamethasone 4 mg tablet 8 mg PO DIRECTED #60 tabs 02/01/23 03/19/23 Unknown Rx ondansetron HCl 4 mg tablet 4 mg PO QID PRN Nausea/vomiting 02/01/23 03/19/23 Unknown Rx #30 tabs prochlorperazine maleate 10 mg 10 mg PO Q4H PRN Mild Nausea #30 02/01/23 03/19/23 Unknown Rx tablet (Compazine) tabs hydrocodone 10 mg-acetaminophen 1 tab PO Q6H PRN pain 5 days #20 03/15/23 03/19/23 Unknown Rx 325 mg tablet tabs acetaminophen 300 mg-codeine 60 mg 1 tab PO Q6H PRN Pain 03/19/23 03/19/23 Unknown History tablet ascorbic acid (vitamin C) 500 mg 500 mg PO DAILY 03/19/23 03/19/23 Unknown History tablet (Vitamin C) calcium carbonate 500 mg calcium 500 mg PO DAILY 03/19/23 03/19/23 Unknown History (1,250 mg) tablet escitalopram oxalate 20 mg tablet 20 mg PO QAM 03/19/23 03/19/23 03/19/23 History (Lexapro) lidocaine-prilocaine 2.5 %-2.5 % 1 applic topical . DIRECTED 03/19/23 03/19/23 Unknown History topical cream lorazepam 1 mg tablet 1 - 2 mg PO BEDTIME 03/19/23 03/19/23 Unknown History multivitamin 1 tab PO DAILY 03/19/23 03/19/23 Unknown History Allergies Allergy/AdvReac Type Severity Reaction Status Date / Time Penicillins Allergy Intermediate rash Verified 03/15/23 11:30 morphine AdvReac Intermediate can't void Verified 03/15/23 11:30 promethazine [From Phenergan] AdvReac Intermediate vomiting Verified 03/15/23 11:30 Current Medications Generic Name Dose Route Start Last Admin Trade Name Freq PRN Reason Stop Dose Admin Docusate Sodium 100 mg 03/19/23 18:00 03/19/23 17:28 Docusate Sodium 100 Mg Capsule PO 100 mg BID ANY Administration Escitalopram Oxalate 20 mg 03/20/23 06:00 03/20/23 05:51 Escitalopram 10 Mg Tablet PO Not Given QAM ANY Sodium Chloride 1,000 mls @ 75 mls/hr 03/19/23 15:59 03/20/23 05:06 Sodium Chloride 0.9% IV 75 mls/hr .[id number] ANY Administration Vancomycin/PEG/NADA/Lysine/Water 1,250 mg in 250 mls @ 250 mls/hr 03/19/23 17:00 03/20/23 00:37 Vancocin IV 250 mls/hr Q8H ANY Administration Sodium Chloride 1,000 mls @ 30 mls/hr 03/20/23 06:15 03/20/23 06:18 Sodium Chloride 0.9% IV 03/21/23 06:14 30 mls/hr .Q24H ANY Administration Lorazepam 1 mg 03/19/23 21:00 03/19/23 20:14 Lorazepam 1 Mg Tablet PO 1 mg BEDTIME ANY Administration PFSH Acute PFSH: Medical History Breast cancer Cervical disc disorder with myelopathy of mid-cervical region Degenerative arthritis History of depression Hx of anxiety disorder Hx of insomnia Hx of sleep apnea Instability of joint Seasonal allergies Urolithiasis Surgical History History of bilateral mastectomy (12/11/22) History of cervical spinal surgery (2019) 01/26/2020 Dr. Lauren Barba. C5-C6, C6-C7 ACDFF History of left breast biopsy (09/26/22) Ultrasound-guided biopsies of left breast and left axillary lymph nodes History of lumpectomy of left breast (11/08/22) History of open reduction and internal fixation (ORIF) procedure Hx of appendectomy Hx of cholecystectomy Hx of elbow surgery Hx of hysterectomy Hx of total knee arthroplasty Port-A-Cath in place S/P ureteral stent placement Family History Mother Diabetes Pacemaker Father , at age 91 Aortic stenosis Other No pertinent family history Social History Smoking and tobacco status: never smoked Alcohol intake: never Substance/Drug Use: never Household members: spouse Marital status: Current occupational status: employed 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 Ears : Pinnae and external canal are normal. Hearing is normal. Eyes : PERRLA, Sclera and injection are normal. No conjunctival discharge. Nose : Mucous membranes are without erythema. Throat : buccal mucosa is normal, gums are without significant recession or hypertrophy. Lungs : Equal chest rise bilaterally, no use of accessory muscles, trachea is midline. Cor : Rate and rhythm are normal. Abdomen : Soft, ND, NT, no g/r/m Extremities : No edema, no cyanosis or clubbing, dorsalis pedis pulses are present bilaterally, non-tender to palpation of calves. Upper extremities are normal bilaterally. Back : non-tender to palpation, no CVA tenderness. Neuro : CN II - XII intact, Upper and lower extremities have equal and full strength Data 03/20/23 04:33 03/20/23 04:33 Micro: Microbiology 03/19/23 12:23 Blood Culture - Preliminary Blood SPECIMEN COLLECTED 03/19/23 12:23 Blood Culture - Preliminary Blood SPECIMEN COLLECTED A&P Assessment and plan (1) Infection: Plan Mediport removal The risks and benefits of the procedure, including but not limited to, bleeding, infection, scar, numbness, pain, need for further surgery, were explained to the patient. She is understanding of the risks and wishes to proceed. Coding Level of Care Code Acute Code for [facility] Diagnoses Infection B99.9
[2023-03-20] MEDS: lidocaine-epi 2% 20 mL INJ 6 ML INJECTION (07:40)
[2023-03-20] MEDS: docusate sodium 100 mg Capsule PO ×2 (08:29→17:57)
[2023-03-20] MEDS: ascorbic acid 500 mg Tablet PO (08:29)
--- NOTE | 2023-03-20 10:15 | P.ANESASSM_ITS ---
Pre-Anesthetic Assessment Height/Weight: Height 1.7 m Weight 81.647 kg Temp Pulse Resp BP Pulse Ox O2 Del Method 99.1 F 85 18 122/70 92 Room Air 03/20/23 08:34 03/20/23 08:34 03/20/23 08:34 03/20/23 08:34 03/20/23 08:34 03/20/23 08:34 Operation Date: 03/20/23 07:00 Proposed Procedures p Portacath Removal(Not Applicable) - DO Luann Paul anesthetic complications: none Was Beta Debi taken within 24 hours: N/A Was Clonidine taken within 24 hours: N/A Last intake: Intake Last Liquid Date 03/19/23 Last Liquid Time 23:00 Last Solid Date 03/19/23 Last Solid Time 19:00 Social No alcohol and No tobacco Exam alert, oriented x 3, clear to auscultation bilaterally and regular rate & rhythm Airway Submandibular: within normal limits Cervical ROM: within normal limits Mallampati: Class II Dentition: full CV/HEM chemo Musc/skel Lower Back Pain and Osteoarthritis/DJD Neuropsych Anxiety and Depression Anesthetic Plan ASA status: 3 Anesthesia: MAC Medications/Allergies Home Medications Medication Instructions Recorded Confirmed Last Taken Type docusate sodium 100 mg capsule 100 mg PO BID #20 caps 12/12/22 03/19/23 01/26/23 Rx (DOK) dexamethasone 4 mg tablet 8 mg PO DIRECTED #60 tabs 02/01/23 03/19/23 Unknown Rx ondansetron HCl 4 mg tablet 4 mg PO QID PRN Nausea/vomiting 02/01/23 03/19/23 Unknown Rx #30 tabs prochlorperazine maleate 10 mg 10 mg PO Q4H PRN Mild Nausea #30 02/01/2303/08 Unknown Rx tablet (Compazine) tabs hydrocodone 10 mg-acetaminophen 1 tab PO Q6H PRN pain 5 days #20 03/15/23 03/19/23 Unknown Rx 325 mg tablet tabs acetaminophen 300 mg-codeine 60 mg 1 tab PO Q6H PRN Pain 03/19/23 03/19/23 Unknown History tablet ascorbic acid (vitamin C) 500 mg 500 mg PO DAILY 03/19/23 03/19/23 Unknown History tablet (Vitamin C) calcium carbonate 500 mg calcium 500 mg PO DAILY 03/19/23 03/19/23 Unknown History (1,250 mg) tablet escitalopram oxalate 20 mg tablet 20 mg PO QAM 03/19/23 03/19/23 03/19/23 History (Lexapro) lidocaine-prilocaine 2.5 %-2.5 % 1 applic topical . DIRECTED 03/19/23 03/19/23 Unknown History topical cream lorazepam 1 mg tablet 1 - 2 mg PO BEDTIME 03/19/23 03/19/23 Unknown History multivitamin 1 tab PO DAILY 03/19/23 03/19/23 Unknown History Allergies Allergy/AdvReac Type Severity Reaction Status Date / Time Penicillins Allergy Intermediate rash Verified 03/15/23 11:30 morphine AdvReac Intermediate can't void Verified 03/15/23 11:30 promethazine [From Phenergan] AdvReac Intermediate vomiting Verified 03/15/23 11:30 Current Medications Generic Name Dose Route Start Last Admin Trade Name Freq PRN Reason Stop Dose Admin Ascorbic Acid 500 mg 03/20/23 09:00 03/20/23 08:29 Ascorbic Acid 500 Mg Tablet PO 500 mg DAILY ANY Administration Docusate Sodium 100 mg 03/19/23 18:00 03/20/23 08:29 Docusate Sodium 100 Mg Capsule PO 100 mg BID ANY Administration Escitalopram Oxalate 20 mg 03/20/23 06:00 03/20/23 05:51 Escitalopram 10 Mg Tablet PO Not Given QAM ANY Sodium Chloride 1,000 mls @ 75 mls/hr 03/19/23 15:59 03/20/23 05:06 Sodium Chloride 0.9% IV 75 mls/hr .[id number] ANY Administration Vancomycin/PEG/NADA/Lysine/Water 1,250 mg in 250 mls @ 250 mls/hr 03/19/23 17:00 03/20/23 09:52 Vancocin IV Infused Q8H ANY Infusion Sodium Chloride 1,000 mls @ 30 mls/hr 03/20/23 06:15 03/20/23 06:18 Sodium Chloride 0.9% IV 03/21/23 06:14 30 mls/hr .Q24H ANY Administration Sodium Chloride 1,000 mls @ 100 mls/hr 03/20/23 06:15 03/20/23 08:27 Sodium Chloride 0.9% IV 03/21/23 06:14 Not Given .Q10H ANY Lorazepam 1 mg 03/19/23 21:00 03/19/23 20:14 Lorazepam 1 Mg Tablet PO 1 mg BEDTIME ANY Administration PFSH Anesthesia Medical History Breast cancer Cervical disc disorder with myelopathy of mid-cervical region Degenerative arthritis History of depression Hx of anxiety disorder Hx of insomnia Hx of sleep apnea Instability of joint Seasonal allergies Urolithiasis Surgical History History of bilateral mastectomy (12/11/22) History of cervical spinal surgery (2019) 01/26/2020 Dr. Lauren Barba. C5-C6, C6-C7 ACDFF History of left breast biopsy (09/26/22) Ultrasound-guided biopsies of left breast and left axillary lymph nodes History of lumpectomy of left breast (11/08/22) History of open reduction and internal fixation (ORIF) procedure Hx of appendectomy Hx of cholecystectomy Hx of elbow surgery Hx of hysterectomy Hx of total knee arthroplasty Port-A-Cath in place S/P ureteral stent placement Family History Mother Diabetes Pacemaker Father , at age 91 Aortic stenosis Other No pertinent family history Social History Smoking and tobacco status: never smoked Alcohol intake: never Substance/Drug Use: never Household members: spouse Marital status: Current occupational status: employed 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 Data Anesthesia 03/20/23 04:33 03/20/23 04:33 Short CBC 03/19/23 03/20/23 Range/Units 12:23 04:33 WBC 3.2 L 2.9 L (4.0-10.0) 10^3/uL Hgb 11.6 9.5 L (11.5-15.3) g/dL Hct 36.3 L 30.5 L (37.0-47.0) % MCV 91.9 93.0 (81-99) fl Plt Count 250 223 (130-400) 10^3/cmm Neut % (Auto) 79.7 78.1 % Neut # (Auto) 2.54 2.23 (1.8-7.7) 10^3/uL BMP 03/19/23 03/20/23 12:23 04:33 Sodium 138 140 Potassium 4.1 3.8 Chloride 103 109 H Carbon Dioxide 25 21 L BUN 14 10 Creatinine 0.4 L 0.3 L Glucose 94 135 H Calcium 8.7 8.1 L Liver Function 03/19/23 Range/Units 12:23 Total Bilirubin 0.5 (0.15-1.2) mg/dL AST 16 (0-32) U/L ALT 18 (0-33) U/L Alkaline Phosphatase 75 (35-105) U/L Albumin 4.1 (3.5-5.2) g/dL Urine 03/19/23 Range/Units 13:34 Urine Color Yellow (Yellow) Urine Appearance Clear (CLEAR) Urine pH 5 (5-7) Ur Specific [place] 1.020 (1.005-1.030) Urine Protein Neg (Negative) Urine Glucose (UA) Norm (Normal) Urine Ketones Negative (Negative) Urine Nitrate Negative (Negative) Urine Bilirubin Neg (Negative) Ur Leukocyte Esterase Negative (Negative) Coags 03/20/23 04:33 C-Reactive Protein 47.9 H Microbiology 03/19/23 12:23 Blood Culture - Preliminary Blood SPECIMEN COLLECTED 03/19/23 12:23 Blood Culture - Preliminary Blood SPECIMEN COLLECTED Cardiac Studies: No Data to Display
--- NOTE | 2023-03-20 10:15 | P.ANESASSM_ITS ---
Pre-Anesthetic Assessment Height/Weight: Height 1.7 m Weight 81.647 kg Temp Pulse Resp BP Pulse Ox O2 Del Method 99.1 F 85 18 122/70 92 Room Air 03/20/23 08:34 03/20/23 08:34 03/20/23 08:34 03/20/23 08:34 03/20/23 08:34 03/20/23 08:34 Operation Date: 03/20/23 07:00 Proposed Procedures p Portacath Removal(Not Applicable) - Nick Rutledge DO Last intake: Intake Last Liquid Date 03/19/23 Last Liquid Time 23:00 Last Solid Date 03/19/23 Last Solid Time 19:00 Medications/Allergies Home Medications Medication Instructions Recorded Confirmed Last Taken Type docusate sodium 100 mg capsule 100 mg PO BID #20 caps 12/12/22 03/19/23 01/26/23 Rx (DOK) dexamethasone 4 mg tablet 8 mg PO DIRECTED #60 tabs 02/01/23 03/19/23 Unknown Rx ondansetron HCl 4 mg tablet 4 mg PO QID PRN Nausea/vomiting 02/01/23 03/19/23 Unknown Rx #30 tabs prochlorperazine maleate 10 mg 10 mg PO Q4H PRN Mild Nausea #30 02/01/23 03/19/23 Unknown Rx tablet (Compazine) tabs hydrocodone 10 mg-acetaminophen 1 tab PO Q6H PRN pain 5 days #20 03/15/23 03/19/23 Unknown Rx 325 mg tablet tabs acetaminophen 300 mg-codeine 60 mg 1 tab PO Q6H PRN Pain 03/19/23 03/19/23 Unknown History tablet ascorbic acid (vitamin C) 500 mg 500 mg PO DAILY 03/19/23 03/19/23 Unknown History tablet (Vitamin C) calcium carbonate 500 mg calcium 500 mg PO DAILY 03/19/23 03/19/23 Unknown History (1,250 mg) tablet escitalopram oxalate 20 mg tablet 20 mg PO QAM 03/19/23 03/19/23 03/19/23 History (Lexapro) lidocaine-prilocaine 2.5 %-2.5 % 1 applic topical . DIRECTED 03/19/23 03/19/23 Unknown History topical cream lorazepam 1 mg tablet 1 - 2 mg PO BEDTIME 03/19/23 03/19/23 Unknown History multivitamin 1 tab PO DAILY 03/19/23 03/19/23 Unknown History Allergies Allergy/AdvReac Type Severity Reaction Status Date / Time Penicillins Allergy Intermediate rash Verified 03/15/23 11:30 morphine AdvReac Intermediate can't void Verified 03/15/23 11:30 promethazine [From Phenergan] AdvReac Intermediate vomiting Verified 03/15/23 11:30 Current Medications Generic Name Dose Route Start Last Admin Trade Name Gi PRN Reason Stop Dose Admin Ascorbic Acid 500 mg 03/20/23 09:00 03/20/23 08:29 Ascorbic Acid 500 Mg Tablet PO 500 mg DAILY ANY Administration Docusate Sodium 100 mg 03/19/23 18:00 03/20/23 08:29 Docusate Sodium 100 Mg Capsule PO 100 mg BID ANY Administration Escitalopram Oxalate 20 mg 03/20/23 06:00 03/20/23 05:51 Escitalopram 10 Mg Tablet PO Not Given QAM ANY Sodium Chloride 1,000 mls @ 75 mls/hr 03/19/23 15:59 03/20/23 05:06 Sodium Chloride 0.9% IV 75 mls/hr .[id number] ANY Administration Vancomycin/PEG/NADA/Lysine/Water 1,250 mg in 250 mls @ 250 mls/hr 03/19/23 17:00 03/20/23 09:52 Vancocin IV Infused Q8H ANY Infusion Sodium Chloride 1,000 mls @ 30 mls/hr 03/20/23 06:15 03/20/23 06:18 Sodium Chloride 0.9% IV 03/21/23 06:14 30 mls/hr .Q24H ANY Administration Sodium Chloride 1,000 mls @ 100 mls/hr 03/20/23 06:15 03/20/23 08:27 Sodium Chloride 0.9% IV 03/21/23 06:14 Not Given .Q10H ANY Lorazepam 1 mg 03/19/23 21:00 03/19/23 20:14 Lorazepam 1 Mg Tablet PO 1 mg BEDTIME ANY Administration PFSH Anesthesia Medical History Breast cancer Cervical disc disorder with myelopathy of mid-cervical region Degenerative arthritis History of depression Hx of anxiety disorder Hx of insomnia Hx of sleep apnea Instability of joint Seasonal allergies Urolithiasis Surgical History History of bilateral mastectomy (12/11/22) History of cervical spinal surgery (2019) 01/26/2020 Dr. Lauren Barba. C5-C6, C6-C7 ACDFF History of left breast biopsy (09/26/22) Ultrasound-guided biopsies of left breast and left axillary lymph nodes History of lumpectomy of left breast (11/08/22) History of open reduction and internal fixation (ORIF) procedure Hx of appendectomy Hx of cholecystectomy Hx of elbow surgery Hx of hysterectomy Hx of total knee arthroplasty Port-A-Cath in place S/P ureteral stent placement Family History Mother Diabetes Pacemaker Father , at age 91 Aortic stenosis Other No pertinent family history Social History Smoking and tobacco status: never smoked Alcohol intake: never Substance/Drug Use: never Household members: spouse Marital status: Current occupational status: employed 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 Data Anesthesia 03/20/23 04:33 03/20/23 04:33 Short CBC 03/19/23 03/20/23 Range/Units 12:23 04:33 WBC 3.2 L 2.9 L (4.0-10.0) 10^3/uL Hgb 11.6 9.5 L (11.5-15.3) g/dL Hct 36.3 L 30.5 L (37.0-47.0) % MCV 91.9 93.0 (81-99) fl Plt Count 250 223 (130-400) 10^3/cmm Neut % (Auto) 79.7 78.1 % Neut # (Auto) 2.54 2.23 (1.8-7.7) 10^3/uL BMP 03/19/23 03/20/23 12:23 04:33 Sodium 138 140 Potassium 4.1 3.8 Chloride 103 109 H Carbon Dioxide 25 21 L BUN 14 10 Creatinine 0.4 L 0.3 L Glucose 94 135 H Calcium 8.7 8.1 L Liver Function 03/19/23 Range/Units 12:23 Total Bilirubin 0.5 (0.15-1.2) mg/dL AST 16 (0-32) U/L ALT 18 (0-33) U/L Alkaline Phosphatase 75 (35-105) U/L Albumin 4.1 (3.5-5.2) g/dL Urine 03/19/23 Range/Units 13:34 Urine Color Yellow (Yellow) Urine Appearance Clear (CLEAR) Urine pH 5 (5-7) Ur Specific [place] 1.020 (1.005-1.030) Urine Protein Neg (Negative) Urine Glucose (UA) Norm (Normal) Urine Ketones Negative (Negative) Urine Nitrate Negative (Negative) Urine Bilirubin Neg (Negative) Ur Leukocyte Esterase Negative (Negative) Coags 03/20/23 04:33 C-Reactive Protein 47.9 H Microbiology 03/19/23 12:23 Blood Culture - Preliminary Blood SPECIMEN COLLECTED 03/19/23 12:23 Blood Culture - Preliminary Blood SPECIMEN COLLECTED Cardiac Studies: No Data to Display
--- NOTE | 2023-03-20 10:30 | PC.CHAP ---
Pastoral Care Encounter/Spiritual Assessment Type of Contact [] Declined risk and compliance analytics director visit [] Patient/Family/Request visit [] Outpatient visit [] Follow-up visit [] Physician referral [] Code/Alert [] Routine visit [] Staff referral [] Actively dying [x] Patient sleeping [] Family support [] [] Out of room [] Palliative care [] [] Receiving care in room [] Pre-surgical visit [] Trauma [] Long length of stay [] ICU visit [] Other: Relational/Emotional Strength [] Patient feels connected with others/family/visitors/staff [] Distress [] Loneliness/isolation [] Abandonment Spirituality of Patient [] Person of Jessica [] Attends Protestant of their Jessica [] Believes in Prayer [] Reads Bible or Presybeterian materials [] There are Spiritual issues to be addressed Cell Stripper Final Interventions [] Prayer [] Active listening [] Non-anxious presence [] Spiritual/emotional support [] Crisis/trauma care [] Spiritual counseling [] Bereavement support [] Provided bereavement packet [] Provided Bible/devotional materials [] Provided toy/stuffed animal, coloring book to patient or family member [] Provided Communion [] Anointing/[place] [] Salvation [] Completed spiritual assessment [] Other: Impact on Illness or Injury [] Angry [] Fearful [] Anxious [] Often cries [] Exhaustion [] Unable to work [] Unable to attend methodist [] Unable to walk/stand [] Unable to read [] Unable to drive [] Unable to eat/drink [] Unable to sleep [] Unable to be with family [] Patient intubated [] Other: Summary Time spent with patient
--- NOTE | 2023-03-20 10:37 | P.PN_ITS ---
Subjective Subjective: Leukopenia neuro but I do not see any signs of neutropenia there is lymphopenia patient is afebrile status post Mediport removal I have notified housekeeper cleaning cooking to get PICC line placed 48 hours after IV antibiotics Patient is not complaining of active complaint other than some mild soreness around the surgical site Vitals/I&O/Wt Last Vital Signs Temp 99.1 F 03/20/23 08:34 Pulse 85 03/20/23 08:34 Resp 18 03/20/23 08:34 BP 122/70 03/20/23 08:34 Pulse Ox 92 03/20/23 08:34 O2 Del Method Room Air 03/20/23 08:34 03/19/23 03/20/23 03/20/23 22:59 06:59 14:59 Intake Total 3179.41 / 3179.41 872.5 / 4051.91 500 / 500 Output Total 0 / 0 Balance 3179.41 / 3179.41 872.5 / 4051.91 500 / 500 Weight last 48 hrs Weight 81.647 kg Physical Exam Narrative: Subclavian Mediport has been removed Patient lying supine Awake and alert Able to answer my question GCS 15 S1, S2 Abdomen soft Doing well on room air No active complaints other than soreness on surgical site Hemodynamic stable Data 03/20/23 04:33 03/20/23 04:33 Micro: Microbiology 03/19/23 12:23 Blood Culture - Preliminary Blood SPECIMEN COLLECTED 03/19/23 12:23 Blood Culture - Preliminary Blood SPECIMEN COLLECTED A&P Assessment and plan (1) Cellulitis: (2) Infection: (3) Breast cancer: (4) 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 Rutledge Wound culture obtained, blood culture negative so far Patient afebrile No signs of neutropenia however she does have leukopenia I will continue IV vancomycin PICC line to be placed if she remains afebrile and clinically stable without any signs of positive bacteremia For now we will continue IV vancomycin She can eat or drink today Full code Opioids along bowel regimen We can start DVT prophylaxis today Attestations Medical Necessity Statement*: Continue medical management Diagnoses Cellulitis L03.90 Infection B99.9 Breast cancer C50.919 Infiltrating ductal carcinoma of upper-outer quadrant of left breast in female C50.412 History of bilateral mastectomy Z90.13
[2023-03-20] MEDS: enoxaparin 40 mg/0.4 mL Syringe SUBCUT (11:00)
--- NOTE | 2023-03-20 14:01 | PM.OP ---
Operative Report Date of procedure: March 20, 2023 Pre-op diagnosis: Infected Mediport Post-op diagnosis: same Procedure done: Mediport removal Implants: None Specimens removed/disposition: Mediport Surgeon: Dr. Nick Rutledge DO Anesthesia: MAC Estimated blood loss (mL): 5 Complications: None apparent Brief History: This is a very pleasant 62-year-old female who had a Mediport placed several weeks ago. It has recently become infected. The risk and benefits of Mediport removal were explained and documented. Procedure: Patient was taken to the operating room and her right chest was prepped and draped in a sterile manner. 1% lidocaine with epinephrine was infiltrated around the MediPort and catheter. Using a 15 blade the previous incision was opened, the subcutaneous tissue was divided using electrocautery and MediPort along the catheter was dissected free from the surrounding subcutaneous tissue and removed entirely. The wound was irrigated with saline, hemostasis ensured with electrocautery. A figure of 8 stitch was placed in the catheter tunnel with 3-0 Vicryl. Subcutaneous tissue was approximated using 3-0 nylon in a simple fashion. 4x4 and sterile dressings were used as a pressure dressing. The patient was transferred to the recovery room in stable condition.
[2023-03-20 16:41] LABS: Vancomycin Trough 8.9 ug/mL (10-15)
--- NOTE | 2023-03-20 17:11 | PC.PHAR ---
PHARMACY TO DOSE CONSULT - VANCOMYCIN The patient's trough came back at 8.9 ug/mL. Although we calculated the dosage at 1250mg every 8 hours, the patient cleared the medication better than expected so we are increasing the dose to 1500mg every 8 hours. A repeat trough will be drawn prior to the 4th dose of the new regimen and we will make changes accordingly. Please let pharmacy know if there is anything that we can do in the care of this patient. Thanks, Cooper Miller, Pharm.D
--- NOTE | 2023-03-20 17:37 | ANE.PACU2 ---
Inpatient post-anesthesia follow up: Airway intact: Yes Vital signs: Temperature 98.3 F Pulse Rate 96 Respiratory Rate 16 Blood Pressure 141/82 Pulse Oximetry 94 Oxygen Delivery Me thod Room Air Oxygen Flow Rate Fraction of Inspir ed Oxygen Hydration adequate: Yes Nausea and vomiting: No Pain level: 1 Mental status: Baseline
[2023-03-20] MEDS: LORazepam 1 mg Tablet PO (20:30)
[2023-03-21] VITALS (8 sets, daily range): BP systolic 119–142; BP diastolic 71–85; PULSE 84–101; RESP 12–20; TEMP 36.8–37.4; O2SAT 94–98
[2023-03-21] MEDS: vancomycin 1,250 MG/250 ML PIGGYBACK 250 MG IV (00:43)
[2023-03-21 05:02] LABS: Basophils % 1.8 %; Eosinophils # 0.1 10^3/uL (0.0-0.8); Eosinophils % 5.4 %; Hemoglobin 9.9 g/dL (11.5-15.3); Lymphocytes # 0.7 10^3/uL (0.8-4.8); Lymphocytes % 41.6 %; Mean Corpuscular HGB Conc 31.9 g/dL (30.0-36.0); Mean Corpuscular Hemoglobin 29.6 pg (28.0-34.0); Mean Corpuscular Volume 92.8 fl (81-99); Monocytes # 0.1 10^3/uL (0.2-0.9); Monocytes % 6.6 %; Nucleated Red Blood Cells % 0 %; Platelet Count 241 10^3/cmm (130-400); Red Blood Count 3.34 10^6/uL (4.1-5.3); Red Cell Distribution Width 14.8 % (12.1-15.1); White Blood Count 1.7 10^3/uL (4.0-10.0)
[2023-03-21 05:19] LABS: Anion Gap 13.1 (5-19); Blood Urea Nitrogen 9 mg/dL (8-23); Calcium 8.3 mg/dL (8.5-10.5); Carbon Dioxide 21 mmol/L (22-29); Chloride 109 mmol/L (98-107); Glomerular Filtration Rate 160.7 mL/min (90-130); Glucose 102 mg/dL (65-115); Osmolality Calculated 287 mOsm/kg (285-295); Potassium 4.1 mmol/L (3.5-5.1); Sodium 139 mmol/L (136-145)
[2023-03-21 05:29] LABS: Slide Review Slide Review Perform
[2023-03-21 05:30] LABS: Neutrophils # 0.73 10^3/uL (1.8-7.7)
[2023-03-21] MEDS: escitalopram 10 mg Tablet 20 MG PO (08:26)
[2023-03-21] MEDS: docusate sodium 100 mg Capsule PO ×2 (08:26→17:30)
[2023-03-21] MEDS: ascorbic acid 500 mg Tablet PO (08:26)
[2023-03-21] MEDS: vancomycin 1,500 MG/300 ML PIGGYBACK 250 MG IV ×2 (08:37→17:29)
--- NOTE | 2023-03-21 10:11 | P.PN_ITS ---
Subjective Subjective: Vancomycin level noted Dr. Rutledge wants to do 1 more day of IV antibiotics No overnight events, afebrile, no nausea vomiting, patient did not complain of active pain today Neutropenia noted Patient has received Neulasta with her chemotherapy she only has 1 more cycle of chemotherapy left for which we will get PICC line placed today her dressing has been changed Dr. Rutledge notified Vitals/I&O/Wt Last Vital Signs Temp 98.2 F 03/21/23 07:52 Pulse 86 03/21/23 07:52 Resp 16 03/21/23 07:52 BP 129/79 03/21/23 07:52 Pulse Ox 96 03/21/23 07:52 O2 Del Method Room Air 03/21/23 07:52 03/20/23 03/21/23 03/21/23 22:59 06:59 14:59 Intake Total 250 / 2000 450 / 2450 240 / 240 Balance 250 / 2000 450 / 2450 240 / 240 Weight last 48 hrs Weight 81.647 kg Physical Exam Narrative: Dressing changed today Less erythema and hyperemia noted around the surgical site No active drainage Wound covered with iodine soaked packing No active signs of purulent drainage Awake and alert Euvolemic GCS 15 Laying supine is at the bedside Doing well on room air S1, S2 Data 03/21/23 04:27 03/21/23 04:27 Micro: Microbiology 03/19/23 13:13 Gram Stain - Final Chest 03/19/23 12:23 Blood Culture - Preliminary Blood NEGATIVE TO DATE 03/19/23 12:23 Blood Culture - Preliminary Blood NEGATIVE TO DATE A&P Assessment and plan (1) Infection: (2) Cellulitis: (3) Chemotherapy induced neutropenia: (4) History of bilateral mastectomy: (5) Infiltrating ductal carcinoma of upper-outer quadrant of left breast in female: Plan Purulent cellulitis Afebrile No sign of bacteremia Wound covered with iodine packed sterile dressing Dr. Rutledge notified Continue 1 more day of IV antibiotics Vancomycin level noted PICC line placement today Most likely patient will be able to go home tomorrow She only has 1 more cycle of chemotherapy left for her breast cancer Patient is full code Currently on regular diet Continue opioids along bowel regimen Continue Lexapro I have notified Dr. Rutledge Attestations Medical Necessity Statement*: Discharge tomorrow Diagnoses Infection B99.9 Cellulitis L03.90 Chemotherapy induced neutropenia D70.1; T45.1X5A History of bilateral mastectomy Z90.13 Infiltrating ductal carcinoma of upper-outer quadrant of left breast in female C50.412
--- NOTE | 2023-03-21 10:33 | XR_ITS ---
WS: [id number] XR chest 1V portable [id number] REASON FOR EXAM: post picc placement FINDINGS: Right arm PICC line has been placed. The tip is in the superior vena cava above the right atrium. XR/XR chest 1V portable [id number] IMPRESSION: Properly positioned right arm PICC line with the tip in the superior vena cava.
--- NOTE | 2023-03-21 11:30 | PC.NURSE ---
Double lumen PICC placed to right basilic vein without difficulty. Referral from hospitalist made for PICC so patient can continue with chemotherapy. Pt hospitalized for infected port, with port being removed 03/20/23. Blood cultures negative to date. Pt with history of bilat mastectomy with lymph nodes removed from left arm. Right arm basilic vein assessed with a 4 mm vein, straight, and best choice for placement noted. Mid-arm circumference measured 10 cm from right AC 35 cm. Trimmed cath length 40 cm with 1 cm external length. CXR shows cath tip in SVC, in good position for use per radiologist. Line secured with stat lock and covered with Biopatch and TSM. Report given to bedside nurseCasey.
[2023-03-21 17:19] LABS: Vancomycin Trough 10.8 ug/mL (10-15)
--- NOTE | 2023-03-21 17:22 | PC.PHAR ---
Vanc trough (10.8).... continue current dose/ monitor for renal function changes (trough to be input by pharmacy when appropriate)
--- NOTE | 2023-03-21 19:03 | PC.NURSE ---
SHIFT SUMMARY PATIENT HAS DONE WELL TODAY. NO FEVER. NO COMPLAINTS OF PAIN. PICC IN PLACE. AMBULATED IN THE HALLS. CURRENTLY RESTING IN BED.
[2023-03-21] MEDS: LORazepam 1 mg Tablet PO (21:30)
--- NOTE | 2023-03-21 21:51 | PC.NURSE ---
bacitracin not applied due to no direction as to location where it needs to be applied, if application is to right chest wound, not applied per previous nurse, dressing is to be left alone per Dr. Rutledge untill tomorrow when he comes to change it.
[2023-03-22] MEDS: vancomycin 1,500 MG/300 ML PIGGYBACK 250 MG IV ×2 (00:41→08:49)
[2023-03-22 04:12] VITALS: BP 116/72; PULSE 100; RESP 18; TEMP 37.2; O2SAT 96
[2023-03-22 04:56] LABS: Basophils % 2.7 %; Eosinophils # 0.1 10^3/uL (0.0-0.8); Eosinophils % 4.5 %; Hematocrit 29.8 % (37.0-47.0); Hemoglobin 9.6 g/dL (11.5-15.3); Lymphocytes # 0.7 10^3/uL (0.8-4.8); Lymphocytes % 61.8 %; Mean Corpuscular HGB Conc 32.2 g/dL (30.0-36.0); Mean Corpuscular Volume 93.1 fl (81-99); Mean Platelet Volume 10.1 fL (7.4-10.4); Monocytes # 0.2 10^3/uL (0.2-0.9); Monocytes % 16.4 %; Neutrophils % 14.6 %; Nucleated Red Blood Cells % 0 %; Platelet Count 244 10^3/cmm (130-400); Red Cell Distribution Width 14.9 % (12.1-15.1); White Blood Count 1.1 10^3/uL (4.0-10.0)
[2023-03-22 05:13] LABS: Slide Review Slide Review Perform
[2023-03-22 05:16] LABS: Neutrophils # 0.16 10^3/uL (1.8-7.7)
[2023-03-22 05:17] LABS: Anion Gap 11.9 (5-19); Blood Urea Nitrogen 13 mg/dL (8-23); Calcium 8.6 mg/dL (8.5-10.5); Carbon Dioxide 23 mmol/L (22-29); Chloride 109 mmol/L (98-107); Glucose 113 mg/dL (65-115); Osmolality Calculated 291 mOsm/kg (285-295); Potassium 3.9 mmol/L (3.5-5.1); Sodium 140 mmol/L (136-145)
--- NOTE | 2023-03-22 05:58 | PC.NURSE ---
pt have been awake all night, last time seen awake at 0500, pt currently sleeping and snoring, once a day lexapro retimed for 0900 once
[2023-03-22] MEDS: escitalopram 10 mg Tablet 20 MG PO (08:49)
[2023-03-22] MEDS: ascorbic acid 500 mg Tablet PO (08:49)
[2023-03-22] MEDS: docusate sodium 100 mg Capsule PO ×2 (08:49→16:40)
--- NOTE | 2023-03-22 10:23 | P.DS_ITS ---
Discharge Providers Date of Admission: 03/19/23 15:59 Date of Discharge: March 22, 2023 Attending Provider at Admission: Byron Davis MD Attending Provider at Discharge: Byron Davis MD Primary Care Provider: Alejandro Hopper MD Diagnoses at Discharge Discharge Diagnosis (1) Infection: Status: Acute (2) Cellulitis: Status: Acute (3) Chemotherapy induced neutropenia: Status: Acute (4) History of bilateral mastectomy: Status: Acute (5) Infiltrating ductal carcinoma of upper-outer quadrant of left breast in female: Status: Acute Reason for Visit Reason for Visit: sent from oncology for port removal Hospital Course Hospital Course 62-year female who is seen Dr. Barahona for breast cancer, Mediport was placed by Dr. Rutledge, she was sent from the clinic because of worsening of redness around her Mediport site, she was diagnosed with purulent cellulitis around Mediport no signs of bacteremia, she remained afebrile however she developed neutropenia, Dr. Barahona was notified, patient has received Neulasta with her previous chemotherapy, Mediport was removed by Dr. Rutledge, patient was kept on IV vancomycin, wound culture showing MRSA, she will receive p.o. 10 days of doxycycline, we have placed PICC line after 48 hours of IV antibiotics, Dr. Barahona will follow up with her for her last chemotherapy session and then PICC line can come out. We will remove iodine packing from her wound, Dr. Rutledge recommended daily sterile dressing change. I do anticipate her neutropenia improvement because in the hospital she received vancomycin which can cause leukopenia and thrombocytopenia. We will give her prescription to check a CBC after 3 days Physical Exam Narrative: Awake and alert Surgical site showing improvement in redness Dressing soaked with blood No purulent drainage Redness has improved significantly Awake and alert Euvolemic Discharge Data Studies Completed and Pending Completed Studies During Hospitalization Category Date Time Status CXRP [XR chest 1V portable [id number]] Routine Exams 03/21/23 10:33 Completed XR chest 1V portable [id number] Stat Exams 03/19/23 12:00 Completed Pending at discharge Category Date Time Status Blood Culture Stat Lab 03/19/23 12:23 Results Catheter Tip Culture Routine Lab 03/20/23 Results Wound Culture and Gram Stain Stat Lab 03/19/23 13:13 Results Radiology Impressions Chest X-Ray 03/21/23 10:33 IMPRESSION: Properly positioned right arm PICC line with the tip in the superior vena cava. Laboratory Results WBC 1.1 10^3/uL (4.0-10.0) L 03/22/23 04:09 RBC 3.20 10^6/uL (4.1-5.3) L 03/22/23 04:09 Hgb 9.6 g/dL (11.5-15.3) L 03/22/23 04:09 Hct 29.8 % (37.0-47.0) L 03/22/23 04:09 MCV 93.1 fl (81-99) 03/22/23 04:09 MCH 30.0 pg (28.0-34.0) 03/22/23 04:09 MCHC 32.2 g/dL (30.0-36.0) 03/22/23 04:09 RDW 14.9 % (12.1-15.1) 03/22/23 04:09 Plt Count 244 10^3/cmm (130-400) 03/22/23 04:09 MPV 10.1 fL (7.4-10.4) 03/22/23 04:09 Neut % (Auto) 14.6 % 03/22/23 04:09 Lymph % (Auto) 61.8 % 03/22/23 04:09 Dickens % (Auto) 16.4 % 03/22/23 04:09 Eos % (Auto) 4.5 % 03/22/23 04:09 Baso % (Auto) 2.7 % 03/22/23 04:09 Neut # (Auto) 0.16 10^3/uL (1.8-7.7) L* 03/22/23 04:09 Lymph # (Auto) 0.7 10^3/uL (0.8-4.8) L 03/22/23 04:09 Dickens # (Auto) 0.2 10^3/uL (0.2-0.9) 03/22/23 04:09 Eos # (Auto) 0.1 10^3/uL (0.0-0.8) 03/22/23 04:09 Baso # (Auto) 0.0 10^3/uL (0.0-0.1) 03/22/23 04:09 Nucleated RBC % (auto) 0 % 03/22/23 04:09 Nucleated RBCs # 0.0 /100WBC 03/22/23 04:09 Sodium 140 mmol/L (136-145) 03/22/23 04:09 Potassium 3.9 mmol/L (3.5-5.1) 03/22/23 04:09 Chloride 109 mmol/L (98-107) H 03/22/23 04:09 Carbon Dioxide 23 mmol/L (22-29) 03/22/23 04:09 Anion Gap 11.9 (5-19) 03/22/23 04:09 BUN 13 mg/dL (8-23) 03/22/23 04:09 Creatinine 0.3 mg/dL (0.5-0.9) L 03/22/23 04:09 GFR Calculation 224.0 mL/min (90-130) H 03/22/23 04:09 Glucose 113 mg/dL (65-115) 03/22/23 04:09 Calculated Osmolality 291 mOsm/kg (285-295) 03/22/23 04:09 Lactic Acid 1.5 mmol/L (0.5-2.2) 03/19/23 12:23 Calcium 8.6 mg/dL (8.5-10.5) 03/22/23 04:09 Magnesium 1.9 mg/dL (1.7-2.3) 03/20/23 04:33 Total Bilirubin 0.5 mg/dL (0.15-1.2) 03/19/23 12: AST 16 U/L (0-32) 03/19/23 12: ALT 18 U/L (0-33) 03/19/23 12:23 Alkaline Phosphatase 75 U/L (35-105) 03/19/23 12:23 C-Reactive Protein 44.0 mg/L (0.0-4.9) H 03/21/23 04:27 Total Protein 6.9 g/dL (6.6-8.7) 03/19/23 12: Albumin 4.1 g/dL (3.5-5.2) 03/19/23 12: Globulin 2.8 g/dL (1.3-4.6) 03/19/23 12:23 Procalcitonin 0.07 ng/mL (0-0.5) 03/19/23 12:23 Urine Color Yellow (Yellow) 03/19/23 13:34 Urine Appearance Clear (CLEAR) 03/19/23 13:34 Urine pH 5 (5-7) 03/19/23 13:34 Ur Specific [place] 1.020 (1.005-1.030) 03/19/23 13:34 Urine Protein Neg (Negative) 03/19/23 13:34 Urine Glucose (UA) Norm (Normal) 03/19/23 13:34 Urine Ketones Negative (Negative) 03/19/23 13:34 Urine Blood Neg (Negative) 03/19/23 13:34 Urine Nitrate Negative (Negative) 03/19/23 13:34 Urine Bilirubin Neg (Negative) 03/19/23 13:34 Urine Urobilinogen Norm mg/dL (Negative) 03/19/23 13:34 Ur Leukocyte Esterase Negative (Negative) 03/19/23 13:34 Vancomycin Trough 10.8 ug/mL (10-15) 03/21/23 16:33 Vitals Last Vital Signs Temp 99.0 F 03/22/23 04:12 Pulse 100 03/22/23 04:12 Resp 18 03/22/23 04:12 BP 116/72 03/22/23 04:12 Pulse Ox 96 03/22/23 04:12 O2 Del Method Room Air 03/22/23 08:00 Discharge Plan Discharge Patient Disposition: Home Condition: Stable Prescriptions: New bacitracin 500 unit/gram ointment 1 applic topical DAILY Qty: 14 0RF doxycycline hyclate 100 mg tablet,delayed release (DR/EC) 100 mg PO BID 10 Days Qty: 20 0RF Continued dexamethasone 4 mg tablet 8 mg PO DIRECTED Qty: 60 3RF Rx Instructions: Take 8 mg twice daily the day before and the day after Taxotere prochlorperazine maleate [Compazine] 10 mg tablet 10 mg PO Q4H PRN (Reason: Mild Nausea) Qty: 30 3RF hydrocodone-acetaminophen 10-325 mg tablet 1 tab PO Q6H PRN (Reason: pain) 5 Days Qty: 20 0RF Hold Instructions: Resume on 02/01/23. ondansetron HCl 4 mg Tablet 4 mg PO QID PRN (Reason: Nausea/vomiting) Qty: 30 3RF multivitamin Tablet 1 tab PO DAILY Calcium 500 500 mg calcium (1,250 mg) Tablet 500 mg PO DAILY Vitamin C 500 mg Tablet 500 mg PO DAILY lidocaine-prilocaine 2.5-2.5 % cream 1 applic topical . DIRECTED Rx Instructions: Apply 30-45 minutes prior to port access acetaminophen-codeine 300-60 mg tablet 1 tab PO Q6H PRN (Reason: Pain) lorazepam 1 mg tablet 1 - 2 mg PO BEDTIME Lexapro 20 mg tablet 20 mg PO QAM docusate sodium [DOK] 100 mg capsule 100 mg PO BID Qty: 20 0RF Discharge Orders: Discharge Order (Routine); Ordered 03/22/23 Ordered By: Byron Davis Other Ambulatory Orders: Complete Blood Count w/Auto (Routine) Timeframe: 20230326 Location: Determined by Patient Ordered By: Byron Davis Referrals: Alejandro Hopper MD [Primary Care Provider] - 04/05/23 3:40 pm Discharge Diet: Cardiac Discharge Activity: Increase activity as tolerated Patient Instructions: Opioid Safety Discharge Attestations Time Spent in Discharge Care*: greater than 30 min Quality Metrics Clinical Quality Measures [ No reported AMI, CVA or VTE this stay] Coding Level of Care Code Acute Code for Chg Fwd Diagnoses Infection B99.9 Cellulitis L03.90 Chemotherapy induced neutropenia D70.1; T45.1X5A History of bilateral mastectomy Z90.13 Infiltrating ductal carcinoma of upper-outer quadrant of left breast in female C50.412
--- NOTE | 2023-03-22 11:16 | P.PN_ITS ---
Subjective Subjective: Catheter tip showed MRSA Patient will need IV antibiotics at discharge at least 4 weeks I have notified the social sciences department chair Discontinued my discharge orders for now Vitals/I&O/Wt Last Vital Signs Temp 99.0 F 03/22/23 04:12 Pulse 100 03/22/23 04:12 Resp 18 03/22/23 04:12 BP 116/72 03/22/23 04:12 Pulse Ox 96 03/22/23 04:12 O2 Del Method Room Air 03/22/23 08:00 03/21/23 03/22/23 03/22/23 22:59 06:59 14:59 Intake Total 420 / 1200 500 / 1700 Output Total Balance 419 / 1199 500 / 1699 Physical Exam Narrative: Awake and alert Surgical site show ing improvement in redness Dressing soaked with blood No purulent draina ge Redness has imp roved significantl y Awake and alert Euvolemic Data 03/22/23 04:09 03/22/23 04:09 Micro: Microbiology 03/19/23 13:13 Gram Stain - Final Chest Wound Culture - Preliminary Coag positive Staphylococcus 03/20/23 Unknown Catheter Tip Culture - Final Other Source Staphylococcus aureus A&P Assessment and plan (1) MRSA (methicillin resistant staph aureus) culture positive: (2) Chemotherapy induced neutropenia: Plan Catheter tip showing MRSA, severe neutropenia, patient has received Neulasta with her chemotherapy, Dr. Barahona notified She will need 4 weeks of IV antibiotics Planning for vancomycin 1500 mg daily Patient is afebrile No sign of sepsis or bacteremia Dr. Barahona notified Packing has been removed She will need daily dressing change Attestations Medical Necessity Statement*: Discharge planning Diagnoses MRSA (methicillin resistant staph aureus) culture positive Z22.322 Chemotherapy induced neutropenia D70.1; T45.1X5A
--- NOTE | 2023-03-22 11:37 | PC.PHAR ---
Spoke with Dr. Davis about dose, pt is currently on 1500mg Q8h trough drawn 6-14@1600 (10.8). Entered a new trough 6-15 @ [address] Davis looking for a level above 10 but less than 15 still. Thanks, Kristopher Thomas
[2023-03-22 12:00] VITALS: BP 128/80; PULSE 91; RESP 16; TEMP 37.1; O2SAT 96
--- NOTE | 2023-03-22 15:48 | P.CONIM_ITS ---
Providers/Reason For Consult Consulting Physician/Specialty*: Aracely Thorpe MD/ Infectious disease Reason for Consult*: Mediport site infection Requesting Physician: Dr. Davis Attending Physician: Byron Davis MD Primary Care Provider: Alejandro Hopper MD History of Present Illness History of Present Illness Shanique Devi is a 62 year old female with infiltrating ductal carcinoma of the left breast status post bilateral mastectomy in December 2022, currently on adjuvant chemotherapy with docetaxel/cyclophosphamide, completed 3 cycles with last dose on March 15, 2023 and also received Neulasta. She is currently admitted to the hospital since March 19, 2023 after presenting with Mediport site infection. Per patient and her who is currently at bedside, patient started noticing some redness erythema and discharge at the site of the port approximately a week ago. This was noticed at the oncology clinic and patient was recommended to keep the site clean and dry however the skin changes continue to progress and patient came into the emergency room due to concerns for an infected insertion site. Of note patient had been on Levaquin in the preceding week due to prophylactic therapy for her neutropenia. She has since undergone port removal on March 20, 2023 by general surgery. The site of her port is currently with packing and sterile dressing in place. Estimated size of the defect is 2 x 2 cm in length and breath, unable to a certain depth currently due to surgical packing in place. Peripheral blood culture taken on admission on March 19, 2023 was negative. Specimen marked wound culture and Gram stain, presumably from the discharge from site insertion has shown MSSA. It appears that a catheter tip culture was also sent after being removed, also revealed MSSA. Blood cultures from the port are not available. Patient has been neutropenic with an ANC of 1600 on the day of assessment. She has been afebrile Denies any constitutional symptoms currently Denies any fever chills or night sweats. No cardiac hardware She has history of bilateral knee replacements and has C-spine hardware in [facility]. Review of Systems General: Reports: 10 or more systems reviewed and unremarkable except in HPI and below Const: Denies: fever(s), chills or body aches Eyes: Denies: change in vision, blurry vision or photophobia ENMT: Reports: hoarseness; Denies: throat pain, enlarged tonsils, odynophagia or nasal congestion Card: Denies: chest pain, palpitations, irregular heart rhythm, edema, swelling of feet/ankles, lightheadedness, pre-syncope, dyspnea on exertion or orthopnea Resp: Denies: dyspnea, productive cough, non-productive cough, wheezing, stridor, pain on inspiration, change in phlegm color, hemoptysis or chest congestion GI: Denies: abdominal pain, nausea, vomiting, hematemesis, coffee ground emesis, dysphagia, heartburn, diarrhea, constipation, GI cramping, change in stool character, hematochezia or melena : Denies: flank pain, difficulty voiding, dysuria, urinary frequency, urinary urgency, urinary hesitancy or hematuria Musc: Denies: neck pain, back pain, extremity pain, joint swelling, joint warmth or deformity Neuro: Denies: headache(s), numbness in extremities, weakness in extremities, sensory changes, difficulty walking, frequent falls, dizziness, vertigo, behavioral changes, Slurred speech present or seizure-like activity Psych: Denies: anxiety, depression, suicidal ideation or homicidal ideation Endo: Denies: polyuria, polydipsia, tired all the time, cold intolerance or hot flashes Henrik/Lymph: Denies: easy bruising or easy bleeding Medications/Allergies Home Medications Medication Instructions Recorded Confirmed Last Taken Type docusate sodium 100 mg capsule 100 mg PO BID #20 caps 12/12/22 03/19/23 01/26/23 Rx (DOK) dexamethasone 4 mg tablet 8 mg PO DIRECTED #60 tabs 02/01/23 03/19/23 Unknown Rx ondansetron HCl 4 mg tablet 4 mg PO QID PRN Nausea/vomiting 02/01/23 03/19/23 Unknown Rx #30 tabs prochlorperazine maleate 10 mg 10 mg PO Q4H PRN Mild Nausea #30 02/01/23 03/19/23 Unknown Rx tablet (Compazine) tabs hydrocodone 10 mg-acetaminophen 1 tab PO Q6H PRN pain 5 days #20 03/15/23 03/19/23 Unknown Rx 325 mg tablet tabs acetaminophen 300 mg-codeine 60 mg 1 tab PO Q6H PRN Pain 03/19/23 03/19/23 Unknown History tablet ascorbic acid (vitamin C) 500 mg 500 mg PO DAILY 03/19/23 03/19/23 Unknown History tablet (Vitamin C) calcium carbonate 500 mg calcium 500 mg PO DAILY 03/19/23 03/19/23 Unknown History (1,250 mg) tablet escitalopram oxalate 20 mg tablet 20 mg PO QAM 03/19/23 03/19/23 03/19/23 History (Lexapro) lidocaine-prilocaine 2.5 %-2.5 % 1 applic topical . DIRECTED 03/19/23 03/19/23 Unknown History topical cream lorazepam 1 mg tablet 1 - 2 mg PO BEDTIME 03/19/23 03/19/23 Unknown History multivitamin 1 tab PO DAILY 03/19/23 03/19/23 Unknown History bacitracin 500 unit/gram topical 1 applic topical DAILY #14 grams 03/22/23 Unknown Rx ointment cefazolin 2 gram solution for 2 g IV Q8H 4 weeks #25 ea 03/23/23 Unknown Rx injection levofloxacin 500 mg tablet 500 mg PO DAILY 7 days #7 tabs 03/23/23 Unknown Rx Allergies Allergy/AdvReac Type Severity Reaction Status Date / Time Penicillins Allergy Intermediate rash Verified 03/15/23 11:30 morphine AdvReac Intermediate can't void Verified 03/15/23 11:30 promethazine [From Phenergan] AdvReac Intermediate vomiting Verified 03/15/23 11:30 Current Medications Generic Name Dose Route Start Last Admin Trade Name Alexanderq PRN Reason Stop Dose Admin Ascorbic Acid 500 mg 03/20/23 09:00 03/22/23 08:49 Ascorbic Acid 500 Mg Tablet PO 500 mg DAILY ANY Administration Bacitracin 1 each 03/20/23 15:00 03/22/23 08:49 Bacitracin Ointment Pkt TOPICAL Not Given TID [facility] Protocol Docusate Sodium 100 mg 03/19/23 18:00 03/22/23 08:49 Docusate Sodium 100 Mg Capsule PO 100 mg BID ANY Administration Enoxaparin Sodium 40 mg 03/20/23 10:45 03/20/23 11:00 Enoxaparin 40 Mg/0.4 Ml Syringe SUBCUT 40 mg Q24H ANY Administration Escitalopram Oxalate 20 mg 03/20/23 06:00 03/22/23 08:49 Escitalopram 10 Mg Tablet PO 20 mg QAM ANY Administration Lorazepam 1 mg 03/19/23 21:00 03/21/23 21:30 Lorazepam 1 Mg Tablet PO 1 mg BEDTIME ANY Administration PFSH Acute PFSH: Medical History Breast cancer Breast cancer Cellulitis Cervical disc disorder with myelopathy of mid-cervical region Chemotherapy induced neutropenia Degenerative arthritis History of depression Hx of anxiety disorder Hx of insomnia Hx of sleep apnea Infection Infiltrating ductal carcinoma of upper-outer quadrant of left breast in female Instability of joint MRSA (methicillin resistant staph aureus) culture positive Seasonal allergies Urolithiasis Surgical History History of bilateral mastectomy (12/11/22) History of cervical spinal surgery (2019) 01/26/2020 Dr. Lauren Barba. C5-C6, C6-C7 ACDFF History of left breast biopsy (09/26/22) Ultrasound-guided biopsies of left breast and left axillary lymph nodes History of lumpectomy of left breast (11/08/22) History of open reduction and internal fixation (ORIF) procedure Hx of appendectomy Hx of cholecystectomy Hx of elbow surgery Hx of hysterectomy Hx of total knee arthroplasty Port-A-Cath in place S/P ureteral stent placement Family History Mother Diabetes Pacemaker Father , at age 91 Aortic stenosis Other No pertinent family history Social History Smoking and tobacco status: never smoked Alcohol intake: never Substance/Drug Use: never Household members: spouse Marital status: Current occupational status: employed 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 [employer] Vitals/I&O/Wt Last Vital Signs Temp 98.7 F 03/22/23 12:00 Pulse 91 03/22/23 12:00 Resp 16 03/22/23 12:00 BP 128/80 03/22/23 12:00 Pulse Ox 96 03/22/23 12:00 O2 Del Method Room Air 03/22/23 08:00 03/22/23 03/22/23 03/22/23 06:59 14:59 22:59 Intake Total 500 / 1700 540 / 540 Balance 500 / 1699 540 / 540 Physical Exam Narrative: General: No acute distress, AO x3 HEENT: PERRLA, pupils bilaterally equal and reactive, pallors not present Chest: Normal vesicular breath sounds, no added sounds, equal good air entry bilaterally CVS: S1-S2 regular, no murmurs, no tachycardia, no gallops, no rubs Abdomen: Soft, nontender, no organomegaly, bowel sounds present Neuro: No focal deficits, no facial deformity, AO x3, power 5/5 in all limbs Extremities: Port site removed from right upper chest wall. There currently exists a defect approximately 2 x 2 cm in length and red, unable to assess the depth of infection, currently has a surgical packing in place, removal of surgical packing resulted in significant bleeding at the site per nursing, therefore packing has not been removed for direct inspection by me at this time. Data 03/23/23 03:14 03/23/23 03:14 Micro: Microbiology 03/19/23 13:13 Gram Stain - Final Chest Wound Culture - Final Staphylococcus aureus 03/20/23 Unknown Catheter Tip Culture - Final Other Source Staphylococcus aureus Spec #: [id number] Wayne: 03/19/23-1313 Status: COMP Req #: [id number] Recd: 03/19/23-[address]: Baudilio Hedrick DO Src: Chest SpDesc: Ordered: WC and GS Procedure Result Verified Site Gram Stain Final 03/20/23-1300 Result NO WHITE BLOOD CELLS SEEN NO ORGANISMS SEEN Wound Culture Final 03/22/23-1145 Organism 1 Staphylococcus aureus Growth HEAVY DAY 2 CRITICAL RESULT YES/NO: YES CRITICAL CALLED BY: RT TO AND READ BACK BY: TAMIA DATE: 03/22/23 TIME: 1145 S aureus M.I.C. RX --------- ------ * Amoxicillin/Clavulanate <=4/2 S * Ampicillin/Sulbactam <=8/4 S * Ceftriaxone <=8 S * Ciprofloxacin >2 R * Clindamycin <=0.5 S * Erythromycin >4 R * Gentamicin <=4 S * Levofloxacin >4 R * Linezolid 4 S * Oxacillin 0.5 S * Penicillin 0.12 S * Rifampin <=1 S * Tetracycline <=4 S * Trimethoprim/Sulfamethoxazole <=0.5/9.5 S Vancomycin 2 S Daptomycin 1 S Wound Culture Preliminary (changed) 03/21/23-1042 Organism 1 Coag positive Staphylococcus Growth HEAVY DAY 1, RESULTS TO FOLLOW Spec #: [id number] Wayne: 03/20/23-UNK Status: COMP Req #: [id number] Recd: 03/20/[address]: Nick Rutledge DO Src: Other Sour SpDesc: Ordered: CTIP Procedure Result Verified Site Catheter Tip Culture Final 03/22/23-1101 Organism 1 Staphylococcus aureus Growth HEAVY DAY 2 CRITICAL RESULT YES/NO: YES CRITICAL CALLED BY: RT TO AND READ BACK BY: MARI DATE: 03/22/23 TIME: 1100 S aureus M.I.C. RX --------- ------ * Amoxicillin/Clavulanate <=4/2 S * Ampicillin/Sulbactam <=8/4 S * Ceftriaxone <=8 S * Ciprofloxacin >2 R * Clindamycin <=0.5 S * Erythromycin >4 R * Gentamicin <=4 S * Levofloxacin >4 R * Linezolid >4 R * Oxacillin 0.5 S * Penicillin 0.12 S * Rifampin <=1 S * Tetracycline <=4 S * Trimethoprim/Sulfamethoxazole <=0.5/9.5 S Vancomycin 2 S Daptomycin 1 S Catheter Tip Culture Preliminary (changed) 03/21/23 Organism 1 Coag positive Staphylococcus Growth HEAVY DAY 1, RESULTS TO FOLLOW pec #: [id number] Wayne: 03/19/23 Status: COMP Req #: [id number] Recd: 03/19/[address]: Baudilio Hedrick DO Src: Blood SpDesc: Ordered: Bcult Procedure Result Verified Site Blood Culture Final 03/24/23 NO GROWTH AFTER 5 DAYS Blood Culture Preliminary (changed) 03/20/23 NEGATIVE TO DATE Blood Culture Preliminary (changed) 03/19/23 SPECIMEN COLLECTED Spec #: [id number] Wayne: 03/19/23 Status: COMP Req #: [id number] Recd: 03/19/[address]: Baudilio Hedrick DO Src: Blood SpDesc: Ordered: Bcult Procedure Result Verified Site Blood Culture Final 06/17/23-1238 NO GROWTH AFTER 5 DAYS Blood Culture Preliminary (changed) 03/20/23-1238 NEGATIVE TO DATE Blood Culture Preliminary (changed) 03/19/23-1244 SPECIMEN COLLECTED A&P Assessment and plan (1) MSSA (methicillin susceptible Staphylococcus aureus) infection: Patient currently admitted to the hospital since March 19, 2023 after presenting with port site erythema, discharge that was noted approximately a week prior to admission. Patient had been on outpatient levofloxacin for prophylaxis due to chemotherapy induced neutropenia 2 sets of peripheral blood culture taken upon admission are negative to date A wound culture, presumably taken from the puslike discharge is with growth of MSSA. Catheter tip culture was sent from the OR which is also with MSSA. Blood cultures from port are not currently available. At a minimum patient has a skin and soft tissue infection at the Mediport insertion site along with evidence of colonization of the Mediport. While it is reassuring that her peripheral blood cultures are negative, these results need to be interpreted with caution as she was on outpatient therapy with levofloxacin prior to these peripheral blood cultures being drawn. Given recovery of an aggressive organism that is MSSA, and presence of multiple orthopedic hardware, would favor treating with at least a 4-week course of organism directed therapy with cefazolin 2 g IV every 8 hours, counting from the day of port removal. We will follow-up in clinic on April 12, 2023 to ensure that her Mediport site has healed prior to discontinuing antibiotics. While on the above antibiotics recommend to get weekly labs with CBC, CMP which we will review PICC line has been placed to facilitate the above antibiotic course. Wound care recommendations per general surgery. continue levofloxacin for pseudomonal ppx until ANC > 500, then discontinue Follow-up in ID clinic on April 12, 2023 at 12 PM. Consult Attestations Medical Necessity Statement: per admitting team Coding Level of Care Code Acute Code for [facility] Fwd Diagnoses MSSA (methicillin susceptible Staphylococcus aureus) infection A49.01
[2023-03-22] MEDS: ceFAZolin 2,000 MG in sodium chloride 0.9% (plus) 50 ML 100 MG IV (16:07)
[2023-03-22 16:39] VITALS: RESP 16
[2023-03-22] MEDS: HYDROmorphone 1 mg/mL INJ 1 mL 0.4 MG IVP (16:39)
[2023-03-22 19:23] VITALS: BP 124/80; PULSE 100; RESP 16; TEMP 37.3; O2SAT 95
[2023-03-22 20:00] VITALS: PULSE 100; RESP 16; O2SAT 95
[2023-03-22] MEDS: bacitracin ointment Pkt 1 EACH TOPICAL (21:00)
[2023-03-22] MEDS: LORazepam 1 mg Tablet PO (22:01)
[2023-03-23] VITALS: BP 145/79; PULSE 102; RESP 18; TEMP 36.9; O2SAT 96
[2023-03-23] MEDS: ceFAZolin 2,000 MG in sodium chloride 0.9% (plus) 50 ML 100 MG IV ×3 (00:25→15:16)
[2023-03-23 03:26] LABS: Basophils % 1.6 %; Eosinophils # 0.1 10^3/uL (0.0-0.8); Eosinophils % 4.7 %; Hematocrit 29.5 % (37.0-47.0); Hemoglobin 9.5 g/dL (11.5-15.3); Lymphocytes # 0.6 10^3/uL (0.8-4.8); Lymphocytes % 48.4 %; Mean Corpuscular HGB Conc 32.2 g/dL (30.0-36.0); Mean Corpuscular Hemoglobin 29.4 pg (28.0-34.0); Mean Corpuscular Volume 91.3 fl (81-99); Mean Platelet Volume 9.8 fL (7.4-10.4); Monocytes # 0.4 10^3/uL (0.2-0.9); Monocytes % 31.3 %; Neutrophils % 10.9 %; Nucleated Red Blood Cells % 0 %; Platelet Count 272 10^3/cmm (130-400); Red Blood Count 3.23 10^6/uL (4.1-5.3); Red Cell Distribution Width 14.6 % (12.1-15.1); White Blood Count 1.3 10^3/uL (4.0-10.0)
[2023-03-23 03:44] LABS: Anion Gap 13.9 (5-19); Blood Urea Nitrogen 10 mg/dL (8-23); Calcium 8.8 mg/dL (8.5-10.5); Carbon Dioxide 24 mmol/L (22-29); Chloride 105 mmol/L (98-107); Glomerular Filtration Rate 160.7 mL/min (90-130); Glucose 94 mg/dL (65-115); Osmolality Calculated 287 mOsm/kg (285-295); Potassium 3.9 mmol/L (3.5-5.1); Sodium 139 mmol/L (136-145)
[2023-03-23 03:46] LABS: Slide Review Slide Review Perform
[2023-03-23 03:48] LABS: Neutrophils # 0.14 10^3/uL (1.8-7.7)
[2023-03-23 03:53] VITALS: BP 132/80; PULSE 94; RESP 16; TEMP 36.9; O2SAT 100
[2023-03-23] MEDS: escitalopram 10 mg Tablet 20 MG PO (06:02)
[2023-03-23 08:00] VITALS: BP 101/59; PULSE 78; PULSE 99; RESP 14; RESP 16; TEMP 36.6; O2SAT 94; O2SAT 96
[2023-03-23] MEDS: ascorbic acid 500 mg Tablet PO (10:13)
[2023-03-23] MEDS: docusate sodium 100 mg Capsule PO (10:13)
[2023-03-23] MEDS: HYDROcodone-acetaminophen 10-325 mg Tablet 1 TAB PO (10:14)
[2023-03-23] MEDS: bacitracin ointment Pkt 1 EACH TOPICAL (10:16)
--- NOTE | 2023-03-23 10:28 | PM.DCS ---
Discharge Providers Date of Admission: 03/19/23 15:59 Date of Discharge: March 23, 2023 Attending Provider at Admission: Byron Davis MD Attending Provider at Discharge: Byron Davis MD Primary Care Provider: Alejandro Hopper MD Diagnoses at Discharge Discharge Diagnosis (1) MRSA (methicillin resistant staph aureus) culture positive: Status: Inactive (2) Chemotherapy induced neutropenia: Status: Acute Reason for Visit Reason for Visit: sent from oncology for port removal Hospital Course Hospital Course 62-year female who is seen Dr. Barahona for breast cancer, Mediport was placed by Dr. Rutledge, she was sent from the clinic because of worsening of redness around her Mediport site, she was diagnosed with purulent cellulitis around Mediport no signs of bacteremia, she remained afebrile however she developed neutropenia, Dr. Barahona was notified, patient has received Neulasta with her previous chemotherapy, Mediport was removed by Dr. Rutledge, patient was kept on IV vancomycin, wound culture showing MSSA, she will receive cefazolin 2 g q8 h, Dr thorpe to f/u OP, we have placed PICC line after 48 hours of IV antibiotics, Dr. Barahona will follow up with her for her last chemotherapy session and then PICC line can come out. We will remove iodine packing from her wound, Dr. Rutledge recommended daily sterile dressing change. I do anticipate her neutropenia improvement because in the hospital she received vancomycin which can cause leukopenia and thrombocytopenia. We will give her prescription to check a CBC after 3 days Weekly CBC and CMP Dr. Thorpe to follow-up outpatient. Please see consultation with Dr. Harper that was requested during hospitalization Physical Exam Narrative: Awake and alert Surgical site showing improvement in redness Dressing soaked with blood No purulent drainage Redness has improved significantly Awake and alert Euvolemic Discharge Data Studies Completed and Pending Completed Studies During Hospitalization Category Date Time Status CXRP [XR chest 1V portable [id number]] Routine Exams 03/21/23 10:33 Completed XR chest 1V portable [id number] Stat Exams 03/19/23 12:00 Completed Pending at discharge Category Date Time Status Blood Culture Stat Lab 03/19/23 12:23 Results Radiology Impressions Chest X-Ray 03/21/23 10:33 IMPRESSION: Properly positioned right arm PICC line with the tip in the superior vena cava. Laboratory Results WBC 1.3 10^3/uL (4.0-10.0) L 03/23/23 03:14 RBC 3.23 10^6/uL (4.1-5.3) L 03/23/23 03:14 Hgb 9.5 g/dL (11.5-15.3) L 03/23/23 03:14 Hct 29.5 % (37.0-47.0) L 03/23/23 03:14 MCV 91.3 fl (81-99) 03/23/23 03:14 MCH 29.4 pg (28.0-34.0) 03/23/23 03:14 MCHC 32.2 g/dL (30.0-36.0) 03/23/23 03:14 RDW 14.6 % (12.1-15.1) 03/23/23 03:14 Plt Count 272 10^3/cmm (130-400) 03/23/23 03:14 MPV 9.8 fL (7.4-10.4) 03/23/23 03:14 Neut % (Auto) 10.9 % 03/23/23 03:14 Lymph % (Auto) 48.4 % 03/23/23 03:14 [place] % (Auto) 31.3 % 03/23/23 03:14 Eos % (Auto) 4.7 % 03/23/23 03:14 Baso % (Auto) 1.6 % 03/23/23 03:14 Neut # (Auto) 0.14 10^3/uL (1.8-7.7) L* 03/23/23 03:14 Lymph # (Auto) 0.6 10^3/uL (0.8-4.8) L 03/23/23 03:14 [place] # (Auto) 0.4 10^3/uL (0.2-0.9) 03/23/23 03:14 Eos # (Auto) 0.1 10^3/uL (0.0-0.8) 03/23/23 03:14 Baso # (Auto) 0.0 10^3/uL (0.0-0.1) 03/23/23 03:14 Nucleated RBC % (auto) 0 % 03/23/23 03:14 Nucleated RBCs # 0.0 /100WBC 03/23/23 03:14 Sodium 139 mmol/L (136-145) 03/23/23 03:14 Potassium 3.9 mmol/L (3.5-5.1) 03/23/23 03:14 Chloride 105 mmol/L (98-107) 03/23/23 03:14 Carbon Dioxide 24 mmol/L (22-29) 03/23/23 03:14 Anion Gap 13.9 (5-19) 03/23/23 03:14 BUN 10 mg/dL (8-23) 03/23/23 03:14 Creatinine 0.4 mg/dL (0.5-0.9) L 03/23/23 03:14 GFR Calculation 160.7 mL/min (90-130) H 03/23/23 03:14 Glucose 94 mg/dL (65-115) 03/23/23 03:14 Calculated Osmolality 287 mOsm/kg (285-295) 03/23/23 03:14 Lactic Acid 1.5 mmol/L (0.5-2.2) 03/19/23 12:23 Calcium 8.8 mg/dL (8.5-10.5) 03/23/23 03:14 Magnesium 1.9 mg/dL (1.7-2.3) 03/20/23 04:33 Total Bilirubin 0.5 mg/dL (0.15-1.2) 03/19/23 12:23 AST 16 U/L (0-32) 03/19/23 12:23 ALT 18 U/L (0-33) 03/19/23 12:23 Alkaline Phosphatase 75 U/L (35-105) 03/19/23 12:23 C-Reactive Protein 44.0 mg/L (0.0-4.9) H 03/21/23 04:27 Total Protein 6.9 g/dL (6.6-8.7) 03/19/23 12:23 Albumin 4.1 g/dL (3.5-5.2) 03/19/23 12: Globulin 2.8 g/dL (1.3-4.6) 03/19/23 12:23 Procalcitonin 0.07 ng/mL (0-0.5) 03/19/23 12:23 Urine Color Yellow (Yellow) 03/19/23 13:34 Urine Appearance Clear (CLEAR) 03/19/23 13:34 Urine pH 5 (5-7) 03/19/23 13:34 Ur Specific [place] 1.020 (1.005-1.030) 03/19/23 13:34 Urine Protein Neg (Negative) 03/19/23 13:34 Urine Glucose (UA) Norm (Normal) 03/19/23 13:34 Urine Ketones Negative (Negative) 03/19/23 13:34 Urine Blood Neg (Negative) 03/19/23 13:34 Urine Nitrate Negative (Negative) 03/19/23 13:34 Urine Bilirubin Neg (Negative) 03/19/23 13:34 Urine Urobilinogen Norm mg/dL (Negative) 03/19/23 13:34 Ur Leukocyte Esterase Negative (Negative) 03/19/23 13:34 Vancomycin Trough 10.8 ug/mL (10-15) 03/21/23 16:33 Vitals Last Vital Signs Temp 97.8 F 03/23/23 08:00 Pulse 78 03/23/23 08:00 Resp 14 03/23/23 08:00 BP 101/59 03/23/23 08:00 Pulse Ox 96 03/23/23 08:00 O2 Del Method Room Air 03/23/23 08:00 Discharge Plan Discharge Patient Disposition: Home Condition: Stable Prescriptions: New bacitracin 500 unit/gram ointment 1 applic topical DAILY Qty: 14 0RF cefazolin 2 gram recon soln 2 g IV Q8H 28 Days Qty: 25 4RF Rx Instructions: 4-week therapy, last dose 04/19 Continued dexamethasone 4 mg tablet 8 mg PO DIRECTED Qty: 60 3RF Rx Instructions: Take 8 mg twice daily the day before and the day after Taxotere prochlorperazine maleate [Compazine] 10 mg tablet 10 mg PO Q4H PRN (Reason: Mild Nausea) Qty: 30 3RF hydrocodone-acetaminophen 10-325 mg tablet 1 tab PO Q6H PRN (Reason: pain) 5 Days Qty: 20 0RF Hold Instructions: Resume on 02/01/23. ondansetron HCl 4 mg Tablet 4 mg PO QID PRN (Reason: Nausea/vomiting) Qty: 30 3RF multivitamin Tablet 1 tab PO DAILY Calcium 500 500 mg calcium (1,250 mg) Tablet 500 mg PO DAILY Vitamin C 500 mg Tablet 500 mg PO DAILY lidocaine-prilocaine 2.5-2.5 % cream 1 applic topical . DIRECTED Rx Instructions: Apply 30-45 minutes prior to port access acetaminophen-codeine 300-60 mg tablet 1 tab PO Q6H PRN (Reason: Pain) lorazepam 1 mg tablet 1 - 2 mg PO BEDTIME Lexapro 20 mg tablet 20 mg PO QAM docusate sodium [DOK] 100 mg capsule 100 mg PO BID Qty: 20 0RF Discharge Orders: Discharge Order (Routine); Ordered 03/23/23 Ordered By: Byron Davis Other Ambulatory Orders: Complete Blood Count w/Auto (Routine) Timeframe: [id number] Location: Determined by Patient Ordered By: Byron Davis Miscellaneous Procedure (Order) Timeframe: 1 Week Facility: [facility] - Location: GI Lab Ordered By: Byron Davis Miscellaneous Procedure (Order) Location: None Selected Ordered By: Byron Davis Referrals: [facility] [Provider Group] - 04/12/23 12:00 pm Alejandro Hopper MD [Primary Care Provider] - 04/05/23 3:40 pm Discharge Diet: Cardiac Discharge Activity: Increase activity as tolerated Patient Instructions: Opioid Safety Discharge Attestations Time Spent in Discharge Care*: greater than 30 min Quality Metrics Clinical Quality Measures [ No reported AMI, CVA or VTE this stay] Coding Level of Care Code Acute Code for [facility] Fwd Diagnoses MRSA (methicillin resistant staph aureus) culture positive Z22.322 Chemotherapy induced neutropenia D70.1; T45.1X5A
[2023-03-23 11:56] VITALS: BP 128/71; PULSE 92; RESP 15; TEMP 36.8; O2SAT 95
[2023-03-23] MEDS: bacitracin ointment 28 gm 1 APPLIC TOPICAL (15:16)
[2023-03-23 16:00] VITALS: BP 139/68; PULSE 86; RESP 16; TEMP 36.8; O2SAT 96
[2023-03-23 17:16] VITALS: BP 139/68; PULSE 86; RESP 16; TEMP 36.8; O2SAT 96
== END 2023-03-23 17:00 | disposition home or self-care (01) | DRG 315 ==
LOC: ER 13:10 → MEDSURG 14:39
PROVIDERS: Surgery; Admitting Provider Internal Medicine; Emergency Provider Family Medicine; PCP Family Medicine; Visit Provider Internal Medicine
PROC: 0JPT0WZ Removal of Totally Implantable Vascular Access Device from Trunk Subcutaneous Tissue and Fascia, Open Approach (ICD-10-PCS; CPT 36589; principal; 2023-03-20 07:00)
DX: T80.219A Unspecified infection due to central venous catheter, initial encounter (principal); C77.3 Secondary and unspecified malignant neoplasm of axilla and upper limb lymph nodes; L03.313 Cellulitis of chest wall; T81.49XA Infection following a procedure, other surgical site, initial encounter; B95.62 Methicillin resistant Staphylococcus aureus infection as the cause of diseases classified elsewhere; Y81.8 Miscellaneous general- and plastic-surgery devices associated with adverse incidents, not elsewhere classified; D70.1 Agranulocytosis secondary to cancer chemotherapy; T45.1X5A Adverse effect of antineoplastic and immunosuppressive drugs, initial encounter; C50.412 Malignant neoplasm of upper-outer quadrant of left female breast; Z79.899 Other long term (current) drug therapy; Z79.891 Long term (current) use of opiate analgesic; Z90.13 Acquired absence of bilateral breasts and nipples; Z98.1 Arthrodesis status; F32.A Depression, unspecified; F41.9 Anxiety disorder, unspecified; G47.30 Sleep apnea, unspecified
CPT/HCPCS: 36415; 36569; 36592; 71045; 80048; 80053; 80202; 81003; 83605; 83735; 84145; 85025; 86140; 87040; 87070; 87075; 87077; 87186; 87205; 93005; 96360; 96372; 99285; J0690; J1170; J1650; J2370; J2704; J3010; J3370; J7030

== ENCOUNTER 2023-04-05 10:00 | Oncology outpatient (recurring) (ONCR) | payer OTHER, SELFPAY ==
[2023-03-08 12:59] VITALS: BP 116/75; PULSE 102; RESP 18; TEMP 36; O2SAT 97
[2023-03-08 13:22] LABS: Hematocrit 38.5 % (37.0-47.0); Hemoglobin 12.4 g/dL (11.5-15.3); Mean Corpuscular HGB Conc 32.2 g/dL (30.0-36.0); Mean Corpuscular Hemoglobin 29.5 pg (28.0-34.0); Mean Corpuscular Volume 91.7 fl (81-99); Mean Platelet Volume 9.4 fL (7.4-10.4); Platelet Count 316 10^3/cmm (130-400); Red Cell Distribution Width 14.1 % (12.1-15.1); White Blood Count 9.9 10^3/uL (4.0-10.0)
[2023-03-08 13:43] LABS: Alanine Aminotransferase 20 U/L (0-33); Albumin Level 4.1 g/dL (3.5-5.2); Alkaline Phosphatase 77 U/L (35-105); Aspartate Amino Transferase 19 U/L (0-32); Blood Urea Nitrogen 18 mg/dL (8-23); Calcium 9.6 mg/dL (8.5-10.5); Carbon Dioxide 25 mmol/L (22-29); Chloride 103 mmol/L (98-107); Globulin 2.6 g/dL (1.3-4.6); Glomerular Filtration Rate 124.2 mL/min (90-130); Glucose 86 mg/dL (65-115); Osmolality Calculated 289 mOsm/kg (285-295); Sodium 139 mmol/L (136-145); Total Bilirubin 0.3 mg/dL (0.15-1.2); Total Protein 6.7 g/dL (6.6-8.7)
[2023-03-08 14:05] LABS: Total Cells Counted 100 (0-100)
[2023-03-08 14:06] LABS: Absolute Neutrophil 6.1 10^3/cmm (1.4-6.5); Absolute Segmented Neutrophil 5.5 10/cmm (1.6-7.1); Band Neutrophils Absolute 0.6 10^3/cmm (0.0-1.2); Eosinophils 1 %; Lymphocytes 19 %; Lymphocytes Absolute 1.9 10^3/cmm (1.2-3.4); Monocytes Absolute 1.5 10^3/cmm (0.1-0.6); Platelet Estimate Normal (Normal); Segmented Neutrophils 56 %
[2023-03-14 14:39] VITALS: BP 121/79; PULSE 95; RESP 18; TEMP 35.7; O2SAT 97
[2023-03-14 15:15] LABS: Basophils # 0.1 10^3/uL (0.0-0.1); Basophils % 0.9 %; Hematocrit 37.8 % (37.0-47.0); Hemoglobin 11.9 g/dL (11.5-15.3); Lymphocytes # 0.9 10^3/uL (0.8-4.8); Lymphocytes % 11.5 %; Mean Corpuscular HGB Conc 31.5 g/dL (30.0-36.0); Mean Corpuscular Hemoglobin 28.7 pg (28.0-34.0); Mean Corpuscular Volume 91.3 fl (81-99); Mean Platelet Volume 10.3 fL (7.4-10.4); Monocytes # 0.4 10^3/uL (0.2-0.9); Neutrophils # 6.26 10^3/uL (1.8-7.7); Neutrophils % 81.9 %; Nucleated Red Blood Cells % 0 %; Platelet Count 282 10^3/cmm (130-400); Red Blood Count 4.14 10^6/uL (4.1-5.3); Red Cell Distribution Width 13.9 % (12.1-15.1); White Blood Count 7.6 10^3/uL (4.0-10.0)
[2023-03-14 15:32] LABS: Alanine Aminotransferase 17 U/L (0-33); Albumin Level 4.3 g/dL (3.5-5.2); Alkaline Phosphatase 70 U/L (35-105); Anion Gap 15.5 (5-19); Aspartate Amino Transferase 15 U/L (0-32); Blood Urea Nitrogen 20 mg/dL (8-23); Calcium 8.7 mg/dL (8.5-10.5); Carbon Dioxide 23 mmol/L (22-29); Chloride 106 mmol/L (98-107); Globulin 2.7 g/dL (1.3-4.6); Glomerular Filtration Rate 160.7 mL/min (90-130); Glucose 126 mg/dL (65-115); Osmolality Calculated 294 mOsm/kg (285-295); Potassium 4.5 mmol/L (3.5-5.1); Sodium 140 mmol/L (136-145); Total Bilirubin 0.3 mg/dL (0.15-1.2)
[2023-03-15] MEDS: sodium chloride 0.9% 250 ML 75 ML IV (12:37)
[2023-03-15] MEDS: palonosetron 0.25 mg/5 mL SDV IVP (12:38)
[2023-03-15] MEDS: OLANZapine 5 mg TABLET PO (12:44)
[2023-03-15] MEDS: diphenhydrAMINE 50 mg/mL SDV 1mL 25 MG IVP (13:06)
[2023-03-15] MEDS: famotidine 20 mg/2 mL INJ IVP (13:07)
[2023-03-15] MEDS: fosaprepitant 150 MG in sodium chloride 0.9% 150 ML 300 MG IV (13:11)
[2023-03-15] MEDS: cyclophosphamide 1,000 MG, cyclophosphamide 200 MG in sodium chloride 0.9% 500 ML 500 MG IV (14:15)
[2023-03-15] MEDS: DOCEtaxeL 149 MG in sodium chloride 0.9%(non-DEHP) 250 ML 257.45 MG IV (16:08)
[2023-03-15 17:20] VITALS: BP 119/68; PULSE 68; RESP 18; TEMP 36.6; O2SAT 98
[2023-03-29 15:40] VITALS: BP 120/78; PULSE 90; RESP 18; TEMP 36; O2SAT 97
[2023-03-29 15:57] LABS: Hematocrit 34.8 % (37.0-47.0); Hemoglobin 11.1 g/dL (11.5-15.3); Mean Corpuscular HGB Conc 31.9 g/dL (30.0-36.0); Mean Corpuscular Hemoglobin 28.9 pg (28.0-34.0); Mean Corpuscular Volume 90.6 fl (81-99); Mean Platelet Volume 9.3 fL (7.4-10.4); Platelet Count 407 10^3/cmm (130-400); Red Blood Count 3.84 10^6/uL (4.1-5.3); Red Cell Distribution Width 15.1 % (12.1-15.1); White Blood Count 4.5 10^3/uL (4.0-10.0)
[2023-03-29 16:09] LABS: Alanine Aminotransferase 11 U/L (0-33); Albumin Level 3.8 g/dL (3.5-5.2); Alkaline Phosphatase 80 U/L (35-105); Blood Urea Nitrogen 15 mg/dL (8-23); Calcium 8.7 mg/dL (8.5-10.5); Carbon Dioxide 23 mmol/L (22-29); Chloride 105 mmol/L (98-107); Glomerular Filtration Rate 160.7 mL/min (90-130); Glucose 97 mg/dL (65-115); Osmolality Calculated 289 mOsm/kg (285-295); Sodium 139 mmol/L (136-145); Total Bilirubin 0.2 mg/dL (0.15-1.2); Total Protein 6.8 g/dL (6.6-8.7)
[2023-03-29 16:11] LABS: Anion Gap 15.6 (5-19); Potassium 4.6 mmol/L (3.5-5.1)
[2023-03-29 16:12] LABS: Aspartate Amino Transferase 22 U/L (0-32)
[2023-03-29 16:15] LABS: Vancomycin Trough < 4.0 ug/mL (10-15)
[2023-03-29 18:04] LABS: Absolute Segmented Neutrophil 2.6 10/cmm (1.6-7.1); Eosinophils 2 %; Lymphocytes 15 %; Lymphocytes Absolute 0.8 10^3/cmm (1.2-3.4); Monocytes Absolute 0.9 10^3/cmm (0.1-0.6); Segmented Neutrophils 57 %; Total Cells Counted 100 (0-100)
[2023-03-29 18:05] LABS: Absolute Neutrophil 2.6 10^3/cmm (1.4-6.5); Platelet Estimate Normal (Normal); Polychromasia 1+
[2023-04-04 14:22] VITALS: BP 126/67; PULSE 94; RESP 18; TEMP 35.8; O2SAT 96
[2023-04-04 14:42] LABS: Basophils # 0.1 10^3/uL (0.0-0.1); Basophils % 0.6 %; Eosinophils # 0.1 10^3/uL (0.0-0.8); Eosinophils % 0.9 %; Hematocrit 35.4 % (37.0-47.0); Hemoglobin 11.2 g/dL (11.5-15.3); Lymphocytes # 0.8 10^3/uL (0.8-4.8); Lymphocytes % 9.9 %; Mean Corpuscular HGB Conc 31.6 g/dL (30.0-36.0); Mean Corpuscular Hemoglobin 28.9 pg (28.0-34.0); Mean Corpuscular Volume 91.5 fl (81-99); Mean Platelet Volume 9.3 fL (7.4-10.4); Monocytes # 0.4 10^3/uL (0.2-0.9); Monocytes % 4.4 %; Neutrophils # 6.59 10^3/uL (1.8-7.7); Neutrophils % 82.6 %; Nucleated Red Blood Cells % 0 %; Platelet Count 379 10^3/cmm (130-400); Red Blood Count 3.87 10^6/uL (4.1-5.3); Red Cell Distribution Width 15.9 % (12.1-15.1)
[2023-04-04 15:00] LABS: Alanine Aminotransferase 11 U/L (0-33); Albumin Level 4.1 g/dL (3.5-5.2); Alkaline Phosphatase 72 U/L (35-105); Aspartate Amino Transferase 22 U/L (0-32); Blood Urea Nitrogen 18 mg/dL (8-23); Calcium 8.6 mg/dL (8.5-10.5); Carbon Dioxide 23 mmol/L (22-29); Chloride 105 mmol/L (98-107); Globulin 2.9 g/dL (1.3-4.6); Glomerular Filtration Rate 124.2 mL/min (90-130); Glucose 146 mg/dL (65-115); Osmolality Calculated 289 mOsm/kg (285-295); Sodium 137 mmol/L (136-145); Total Bilirubin 0.2 mg/dL (0.15-1.2)
[2023-04-04 15:03] LABS: Anion Gap 13.6 (5-19); Potassium 4.6 mmol/L (3.5-5.1)
[2023-04-05] MEDS: sodium chloride 0.9% 250 ML 75 ML IV (11:04)
[2023-04-05] MEDS: OLANZapine 5 mg TABLET PO (11:08)
[2023-04-05] MEDS: diphenhydrAMINE 50 mg/mL SDV 1mL 25 MG IVP (11:45)
[2023-04-05] MEDS: famotidine 20 mg/2 mL INJ IVP (11:46)
[2023-04-05] MEDS: palonosetron 0.25 mg/5 mL SDV IVP (11:49)
[2023-04-05] MEDS: fosaprepitant 150 MG in sodium chloride 0.9% 150 ML 300 MG IV (11:54)
[2023-04-05] MEDS: cyclophosphamide 1,000 MG, cyclophosphamide 200 MG in sodium chloride 0.9% 500 ML 500 MG IV (12:46)
[2023-04-05] MEDS: DOCEtaxeL 149 MG in sodium chloride 0.9%(non-DEHP) 250 ML 257.45 MG IV (14:40)
[2023-04-05 16:17] VITALS: BP 134/74; PULSE 71; RESP 18; TEMP 36.8; O2SAT 98
== END 2023-04-06 23:59 | disposition home or self-care (01) ==
PROVIDERS: Internal Medicine Medical Oncology; Student in an Organized Health Care Education/Training Program; PCP Family Medicine; Visit Provider Internal Medicine Hematology & Oncology
DX: Z51.11 Encounter for antineoplastic chemotherapy (principal); C50.919 Malignant neoplasm of unspecified site of unspecified female breast
CPT/HCPCS: 36591; 36592; 80053; 80202; 85007; 85025; 96367; 96375; 96413; 96415; 96417; J1100; J1200; J1453; J1642; J2469; J3490; J7040; J7050; J9070; J9171

== ENCOUNTER 2023-05-01 07:15 | Oncology outpatient (recurring) (ONCR) | payer OTHER, SELFPAY ==
[2023-04-13 11:44] LABS: Basophils % 2.3 %; Eosinophils % 2.3 %; Hematocrit 32.1 % (37.0-47.0); Hemoglobin 10.2 g/dL (11.5-15.3); Lymphocytes # 0.7 10^3/uL (0.8-4.8); Lymphocytes % 51.5 %; Mean Corpuscular HGB Conc 31.8 g/dL (30.0-36.0); Mean Corpuscular Hemoglobin 29.1 pg (28.0-34.0); Mean Corpuscular Volume 91.5 fl (81-99); Mean Platelet Volume 9.9 fL (7.4-10.4); Monocytes # 0.3 10^3/uL (0.2-0.9); Neutrophils % 23.1 %; Nucleated Red Blood Cells % 0 %; Platelet Count 222 10^3/cmm (130-400); Red Blood Count 3.51 10^6/uL (4.1-5.3); Red Cell Distribution Width 16.2 % (12.1-15.1); White Blood Count 1.3 10^3/uL (4.0-10.0)
[2023-04-13 12:03] LABS: Alanine Aminotransferase 9 U/L (0-33); Albumin Level 3.7 g/dL (3.5-5.2); Alkaline Phosphatase 67 U/L (35-105); Anion Gap 14.2 (5-19); Aspartate Amino Transferase 17 U/L (0-32); Blood Urea Nitrogen 11 mg/dL (8-23); Calcium 8.5 mg/dL (8.5-10.5); Carbon Dioxide 24 mmol/L (22-29); Chloride 105 mmol/L (98-107); Globulin 2.7 g/dL (1.3-4.6); Glomerular Filtration Rate 123.8 mL/min (90-130); Glucose 104 mg/dL (65-115); Osmolality Calculated 288 mOsm/kg (285-295); Potassium 4.2 mmol/L (3.5-5.1); Sodium 139 mmol/L (136-145); Total Bilirubin 0.3 mg/dL (0.15-1.2); Total Protein 6.4 g/dL (6.6-8.7)
[2023-04-13 12:22] LABS: Slide Review Slide Review Perform
--- NOTE | 2023-04-13 12:28 | PC.NURSE ---
PICC LINE DRESS CHANGE COMPLETED VIA STERILE TECHNIQUE. NO REDDNESS OR IRRITATION NOTED. PATIENT TOLERATED WELL.
[2023-04-27 10:31] LABS: Basophils # 0.1 10^3/uL (0.0-0.1); Basophils % 1.6 %; Eosinophils # 0.1 10^3/uL (0.0-0.8); Hematocrit 37.6 % (37.0-47.0); Hemoglobin 11.8 g/dL (11.5-15.3); Lymphocytes # 0.8 10^3/uL (0.8-4.8); Lymphocytes % 15.6 %; Mean Corpuscular HGB Conc 31.4 g/dL (30.0-36.0); Mean Corpuscular Hemoglobin 29.1 pg (28.0-34.0); Mean Corpuscular Volume 92.8 fl (81-99); Mean Platelet Volume 9.6 fL (7.4-10.4); Monocytes # 0.8 10^3/uL (0.2-0.9); Monocytes % 15.8 %; Neutrophils # 3.18 10^3/uL (1.8-7.7); Neutrophils % 64.2 %; Nucleated Red Blood Cells % 0 %; Platelet Count 275 10^3/cmm (130-400); Red Blood Count 4.05 10^6/uL (4.1-5.3); Red Cell Distribution Width 16.3 % (12.1-15.1)
[2023-04-27 11:08] LABS: Alanine Aminotransferase 9 U/L (0-33); Albumin Level 3.9 g/dL (3.5-5.2); Alkaline Phosphatase 71 U/L (35-105); Blood Urea Nitrogen 18 mg/dL (8-23); Calcium 8.8 mg/dL (8.5-10.5); Carbon Dioxide 23 mmol/L (22-29); Chloride 104 mmol/L (98-107); Globulin 2.5 g/dL (1.3-4.6); Glomerular Filtration Rate 123.8 mL/min (90-130); Glucose 94 mg/dL (65-115); Osmolality Calculated 288 mOsm/kg (285-295); Sodium 138 mmol/L (136-145); Total Bilirubin 0.2 mg/dL (0.15-1.2); Total Protein 6.4 g/dL (6.6-8.7)
[2023-04-27 11:10] LABS: Anion Gap 15.5 (5-19); Aspartate Amino Transferase 23 U/L (0-32); Potassium 4.5 mmol/L (3.5-5.1)
--- NOTE | 2023-04-27 11:53 | PC.NURSE ---
Removed pts PICC line. Verified orders from Dr. Barahona. Removed a 40cm catheter from pts right upper arm. No redness or irritation noted at site. Catheter in tact. Some resistance with removing catheter. ANDRADE
--- NOTE | 2023-04-27 11:56 | N.ONRAD NP_ITS ---
Radiation Oncology New Patient Visit Patient: Shanique Devi MR#: [id number] : 1960> Age: 63> Sex: Female> Dictated by: Phillip Ferraro Date of Service: 04/27/2023 Referring Physician(s) : Alvaro Barahona M.D. Diagnosis: Breast, left, invasive ductal carcinoma, grade 2, stage pT2 pN2a M0, Breast prognostic profile: ER 100%, MS 5%, Ki-67 20%, HER2 negative. Lymph node prognostic profile: ER 100% MS 0%, Ki-67 35%, HER2 negative Radiotherapy to date: Summary > No prior radiation therapy. Chief Complaint / History of Present Illness: Mrs. Devi is a 63-year-old lady who presented last fall with a palpable mass in the upper outer quadrant of the left breast. She states there were no associated skin changes, fixation, or nipple drainage. She underwent imaging 08/30/2022. Mammography revealed a 4.7 cm mass in the area of the palpable abnormality with associated calcification in a ductal distribution. Enlarged nodes were noted in the left axilla. Ultrasound measured the mass at 2.1 x 2.0 x 2.3 cm. Lymph nodes in the left axilla were very hypoechoic and had lost the normal fatty hilum. Both the mass and the lymph nodes were strongly suspicious for malignancy. On 10/19/2021 biopsies of both the breast mass and a left axillary node were performed. The breast contained invasive ductal carcinoma, grade 2, associated with high-grade DCIS with comedonecrosis. The biopsied left axillary node contained metastatic carcinoma in 2 out of 2 cores. The prognostic panel is noted above. On 11/08/2022 she proceeded to surgery for lumpectomy and left axillary excision. The lumpectomy specimen showed the tumor site to be in the 1 o'clock position 3 cm from the nipple. Grade 2 invasive carcinoma of no special subtype was described. Tumor size was 3.9 cm, a single large focus, associated with grade 3 DCIS with comedonecrosis. Surgical margins were positive at multiple sites. Lymphovascular invasion was noted. The axillary contents revealed 6 of 7 lymph nodes to be positive. The largest corine metastasis was 3 cm and extracapsular extension was noted. Due to the positive margins, a bilateral mastectomy was performed 12/11/2022. Both breasts were negative for malignancy. She had a second opinion at [facility]. It was recommended that she undergo standard postoperative chemotherapy with cyclophosphamide and docetaxel, followed by radiation therapy, followed by treatment with an AI and abemaciclib. She has completed chemotherapy. She had an infection of her port before the last course of chemotherapy, requiring removal of the port and systemic antibiotics. She did receive her last course of chemotherapy and will have the PICC line removed today. She has completed antibiotics. Current Medications: Acetaminophen-Codeine, antacid Calcium, ascorbic Acid, bacitracin, ceFAZolin in Sodium Chloride, daily Vitamin, dexamethasone, docusate Sodium, escitalopram Oxalate, lORazepam, ondansetron HCl, prochlorperazine Maleate. Allergies: Penicillin, morphine, promethazine Medical History: No history of collagen vascular disease. No previous radiation therapy. Port infection, cervical disc disease, degenerative arthritis, depression, anxiety, insomnia, sleep apnea, seasonal allergies, kidney stones. Surgical History: Prior surgery includes the previously noted breast surgery, elbow surgery, cholecystectomy, appendectomy, port placement and subsequent removal, hysterectomy, knee replacement,. Family History: No family history of cancer noted. 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 She lives in [place]. She is a non-smoker. Current Complaints / Review of Systems: . Heart: She has noticed a rapid rate and some palpitations during chemotherapy. An echocardiogram is planned. As far she knows it is not yet scheduled. She has had some vague discomfort over the anterior chest wall. She does not describe discomfort strongly suggestive of cardiac etiology. Pulmonary: No cough, dyspnea, sputum production, or hemoptysis. GI: No dysphagia, indigestion, problems with bowel movements. : No dysuria, hematuria, or pyuria. Musculoskeletal: Chronic joint complaints. No acute or new bone or joint pain. Neurologic no fainting or blackouts or lightheadedness. Neurologic: She has had some difficulty sleeping. Vital Signs: Performed on 04/27/2023 8:58 AM BMI - 31.618 kg/m2 (high), Height - 65 in, Weight - 190 lbs, Temperature - 96.9 f, Pulse - 97 /min, Respiration - 16 /min, O2 Sat - 97 %, Pain - 0, Fatigue - 0 and BP - 120/ 74 mm(hg). Physical Exam: Alert, oriented, no acute distress. She has alopecia and is slightly pale. She appears well-nourished. Neck: Supple. No masses. No cervical or supraclavicular lymphadenopathy. Lungs: Clear to percussion. On auscultation no rales, rhonchi, or wheezes. Heart: Regular rhythm. No murmur or gallop. Abdomen: No distention. No organomegaly or mass or tenderness. Chest wall: The right chest wall is healing well from a simple mastectomy. No axillary lymphadenopathy on the right. The left chest wall has also healed well. The scar is intact. There are no associated nodules, erythema, or rash to suggest local recurrence. There is no seroma. No tenderness to palpation. No axillary lymphadenopathy. Musculoskeletal: No bone tenderness. Normal gait. Good range of motion in both shoulders. No lymphedema in the left upper extremity. Performance Status: ECOG 0 Pathology: See history Lab: None Imaging: See HPI Impression: Mrs. Devi has undergone surgery and postoperative chemotherapy for locally advanced carcinoma of the left breast. She is now a candidate for chest wall and regional node radiation. I discussed the rationale for treatment. I reviewed a typical course of postoperative radiation, side effects, and possible complications. I discussed that we plan by CT, and we will do our best to minimize the volume of lung and heart treated. I discussed the risk of lymphedema and the need for physical therapy and lymphedema therapy. I discussed the very small chance of the second malignancy related to radiation. She wishes to proceed as recommended. Plan: Simulation will be performed next week. Signed by: 04/27/2023 11:55:04 AM <<Signature on File>> Time spent with patient: CPT Code: CPT Code:
--- NOTE | 2023-05-01 | USCV_ITS ---
Shanique Devi Age: 63 Gender: F : 1960 Exam Date: 05/01/2023 07:57 Ordering Phys: Aracely Thorpe MD Technologist: Rudolph Bloom Exam Location: [facility] [place] Indication: eval for endocarditis BP: 127 / 82 HR: 78 Rhythm: Sinus Technical Quality: Adequate MEASUREMENTS (Male / Female) Normal Values 2D ECHO LVOT Diameter 2.0 cm LV Ejection Fraction MOD 2C 62.9 % LV Ejection Fraction 2C AL 65.4 % LA Diameter 3.1 cm LA Width 3.1 cm LA Height 3.7 cm RA Width 4.2 cm RA Height 4.8 cm Aorta at Sinotubular Diameter 2.7 cm IVC Diameter 2.0 cm M-MODE Aortic Annulus Diameter 2.5 cm LA Ao Ratio MM 1.2 MV E Point Septal Separation 0.3 cm DOPPLER AV Peak Velocity 140.3 cm/s LVOT Peak Velocity 125.0 cm/s AV Area Cont Eq vti 2.9 cm squared AV Area Cont Eq pk 2.9 cm squared MV Peak Velocity 93.0 cm/s MV Area PHT 4.8 cm squared Mitral E to A Ratio 1.1 MV E' Velocity 47.5 cm/s Mitral E to MV E' Ratio 8.8 Mitral E to LV E' Lateral Ratio 8.9 Mitral E to LV E' Septal Ratio 8.8 TR Peak Velocity 224.7 cm/s TR Peak Gradient 20.2 mmHg TR Mean Velocity 178.4 cm/s TR Mean Gradient 13.7 mmHg TR Velocity Time Integral 55.4 cm Right Atrial Pressure 3.0 mmHg Pulmonary Artery Systolic Pressu 23.2 mmHg PV Peak Velocity 86.0 cm/s RV Acceleration Time 0.1 s RV Ejection Time 0.3 s RV AcT/ET 0.3 FINDINGS Left Ventricle Normal left ventricular size and systolic function, EF 65 %. No regional wall motion abnormalities. Grade I/IV diastolic dysfunction (abnormal relaxation filling pattern), normal to mildly elevated filling pressures. Right Ventricle The right ventricle is normal in size and function. Right Atrium The right atrium is normal in size. Left Atrium The left atrium is normal in size. Mitral Valve Trace mitral valve regurgitation. Aortic Valve Thickened aortic valve. Tricuspid Valve Trace to mild tricuspid valve regurgitation. Pulmonic Valve Structurally normal pulmonic valve without significant stenosis. Pericardium Normal pericardium without effusion. Aorta Normal ascending aorta dimension. IVC The inferior vena cava appears normal. CONCLUSIONS Normal left ventricular size and systolic function, EF 65 %. No regional wall motion abnormalities. Grade I/IV diastolic dysfunction (abnormal relaxation filling pattern), normal to mildly elevated filling pressures. Thickened aortic valve. Trace mitral valve regurgitation. Trace to mild tricuspid valve regurgitation. Estimated pulmonary artery peak systolic pressure 23 mmHg There are no intracardiac masses. There is no pericardial effusion. No similar previous studies are available for comparison Dr Shukri Fowler MD [facility] (Electronically Signed) Final Date: 01 May 2023 09:44 S
== END 2023-05-07 23:59 | disposition home or self-care (01) ==
LOC: ONCMED 13:47
PROVIDERS: Internal Medicine Medical Oncology; PCP Family Medicine; Visit Provider Internal Medicine Hematology & Oncology
DX: Z51.0 Encounter for antineoplastic radiation therapy (principal); C50.812 Malignant neoplasm of overlapping sites of left female breast; Z17.0 Estrogen receptor positive status [ER+]
CPT/HCPCS: 36592; 77280; 77295; 77300; 77321; 77334; 80053; 85025; 93306; J1642

== ENCOUNTER 2023-05-31 09:00 | Outpatient (RCR) | payer OTHER, SELFPAY | END 2023-06-07 23:59 | disposition home or self-care (01) | LOC: SPT 09:00 | PROVIDERS: PCP Family Medicine; Visit Provider Family Medicine | DX: I89.0 Lymphedema, not elsewhere classified (principal) | CPT/HCPCS: 97140; 97161 ==

== ENCOUNTER 2023-05-31 10:42 | Outpatient (CLI) | payer OTHER, SELFPAY ==
--- NOTE | 2023-05-31 10:56 | XR_ITS ---
WS: [id number] EXAMINATION: XR lumbar spine 2-3V* [id number] REASON FOR EXAM: Lumbar radiculopathy COMPARISON: None available. ORDER DATE: 05/31/2023 10:58 AM FINDINGS: Generalized degenerative spinal changes are seen including moderate degenerative endplate changes and marginal osteophytes. There is minimal narrowing of the intervertebral disc spaces. There is no evid ence of acute compression deformities. There is approximately 8 mm of anterolisthesis of L4 compared with L5. Hypertrophic sclerotic facet changes noted at L4-L5 and L5-S1. Prior cholecystectomy. IMPRESSION: ANTEROLISTHESIS OF L4 COMPARED WITH L5 MODERATE DEGENERATIVE SPINE CHANGE AND SPONDYLOSIS.
== END 2023-05-31 10:43 | disposition home or self-care (01) ==
PROVIDERS: PCP Family Medicine; Visit Provider Family Medicine
DX: M54.16 Radiculopathy, lumbar region (principal); M47.817 Spondylosis without myelopathy or radiculopathy, lumbosacral region
CPT/HCPCS: 72100

== ENCOUNTER 2023-06-04 09:00 | Oncology outpatient (recurring) (ONCR) | payer OTHER, SELFPAY ==
--- NOTE | 2023-05-15 10:25 | ONCRAD TMN_ITS ---
Radiation Oncology Weekly Treatment Management Patient: Marito Quintanilla MR#: [id number] : 1960> Attending Physician: Juancarlos Rapp Date of Service: 05/15/2023 Referring Physician(s) : Alvaro Barahona M.D. Diagnosis: Radiotherapy to date: Course: LT [id number], Treatment Site: L ChestWall, Ref. ID: Lt [id number], Energy: 15X/6X, Dose/Fx (cGy): 200, #Fx: 6 / 25, Dose Correction (cGy): 0, Total Dose (cGy): 1,200, Start Date: 05/08/2023, Elapsed Days: 7 Course: LT [id number], Treatment Site: SCLV, Ref. ID: [id number], Energy: 15X/6X, Dose/Fx (cGy): 200, #Fx: 6 / 25, Dose Correction (cGy): 0, Total Dose (cGy): 1,200, Start Date: 05/08/2023, Elapsed Days: 7 Reason for visit: The patient is being seen today as part of their regularly scheduled weekly on treatment visits to assess for acute toxicities from radiotherapy. Review of Systems: Patient denies excessive fatigue. She has no complaints of skin irritation or lymphedema. Vital Signs: Performed on 05/15/2023 9:01 AM BMI - 31.618 kg/m2 (high), Height - 65 in, Weight - 190 lbs, Temperature - 96.3 f, Pulse - 72 /min, Respiration - 18 /min, O2 Sat - 97 %, Pain - 0, Fatigue - 0 and BP - 131/ 82 mm(hg). Physical Exam: Patient is an elderly female appearing her stated age. Left breast is surgically absent. Mastectomy scar is well-healed. There is no sign of lymphedema or erythema of the skin. Imaging: Radiation therapy imaging related to accurate target localization (i.e. KV, MV and CBCT) was reviewed. Appropriate changes, if any, were made to ensure treatment accuracy. Plan: Continue prescribed radiation therapy. Signed by: Juancarlos Rapp 05/15/2023 10:24:05 AM
--- NOTE | 2023-05-22 09:54 | ONCRAD TMN_ITS ---
Radiation Oncology Weekly Treatment Management Patient: Shanique Devi MR#: [id number] : 1960> Attending Physician: Murray Negrete Date of Service: 05/22/2023 Referring Physician(s) : Alvaro Barahona M.D. Diagnosis: Radiotherapy to date: Course: LT [id number], Treatment Site: L ChestWall, Ref. ID: Lt [id number], Energy: 15X/6X, Dose/Fx (cGy): 200, #Fx: , Dose Correction (cGy): 0, Total Dose (cGy): 2,200, Start Date: 05/08/2023, Elapsed Days: 14 LT [id number], Treatment Site: SCL, Ref. ID: [id number], Energy: 15X/6X, Dose/Fx (cGy): 200, #Fx: , Dose Correction (cGy): 0, Total Dose (cGy): 2,200, Start Date: 05/08/2023, Elapsed Days: 14 Reason for visit: The patient is being seen today as part of their regularly scheduled weekly on treatment visits to assess for acute toxicities from radiotherapy. 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 No chest wall symptoms. Vital Signs: Physical Exam: mild left chest wall erythema. Imaging: Radiation therapy imaging related to accurate target localization (i.e. KV, MV and CBCT) was reviewed. Appropriate changes, if any, were made to ensure treatment accuracy. Plan: Continue treatment. Add moisturizer of her choice. Signed by: Murray Negrete 05/22/2023 9:51:37 AM
--- NOTE | 2023-05-29 13:19 | ONCRAD TMN_ITS ---
Radiation Oncology Weekly Treatment Management Patient: Marito Bay MR#: [id number] : 1960> Attending Physician: Murray Negrete Date of Service: 05/29/2023 Referring Physician(s) : Alvaro Barahona M.D. Diagnosis: Radiotherapy to date: Course: LT [id number], Treatment Site: L ChestWall, Ref. ID: Lt [id number], Energy: 15X/6X, Dose/Fx (cGy): 200, #Fx: 16 / 25, Dose Correction (cGy): 0, Total Dose (cGy): 3,200, Start Date: 05/08/2023, Elapsed Days: 21 Course: LT [id number], Treatment Site: SCLV, Ref. ID: [id number], Energy: 15X/6X, Dose/Fx (cGy): 200, #Fx: 16 / 25, Dose Correction (cGy): 0, Total Dose (cGy): 3,200, Start Date: 05/08/2023, Elapsed Days: 21 Reason for visit: The patient is being seen today as part of their regularly scheduled weekly on treatment visits to assess for acute toxicities from radiotherapy. Review of Systems: A bit of generalized itching. Some chest chest redness. Using Moisturizer. 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 Using OTC hydrocortisone for itch Vital Signs: Performed on 05/29/2023 9:22 AM BMI - 31.618 kg/m2 (high), Height - 65 in, Weight - 190 lbs, Temperature - 96.7 f, Pulse - 92 /min, Respiration - 18 /min, O2 Sat - 96 %, Pain - 0, Fatigue - 8 and BP - 116/ 76 mm(hg). Physical Exam: Imaging: Radiation therapy imaging related to accurate target localization (i.e. KV, MV and CBCT) was reviewed. Appropriate changes, if any, were made to ensure treatment accuracy. Plan: Good tolerance of treatment. OK to add OTC oral Benadryl at night for itch. Continue treatment as planned. Signed by: Murray Negrete 05/29/2023 1:17:24 PM
== END 2023-06-04 23:59 | disposition home or self-care (01) ==
PROVIDERS: PCP Family Medicine; Visit Provider Radiology Radiation Oncology
DX: Z51.0 Encounter for antineoplastic radiation therapy (principal); C50.812 Malignant neoplasm of overlapping sites of left female breast; Z17.0 Estrogen receptor positive status [ER+]; C77.3 Secondary and unspecified malignant neoplasm of axilla and upper limb lymph nodes; Z79.811 Long term (current) use of aromatase inhibitors; Z79.899 Other long term (current) drug therapy
CPT/HCPCS: 77014; 77336; 77387; 77412; 99024

== ENCOUNTER 2023-06-08 06:00 | Outpatient (RCR) | payer OTHER, SELFPAY | END 2023-07-07 23:59 | disposition home or self-care (01) | LOC: SPT 06:00 | PROVIDERS: PCP Family Medicine; Visit Provider Family Medicine | DX: I89.0 Lymphedema, not elsewhere classified (principal) | CPT/HCPCS: 97140 ==

== ENCOUNTER 2023-06-28 13:22 | Outpatient (CLI) | payer OTHER, SELFPAY ==
--- NOTE | 2023-06-28 13:30 | XR_ITS ---
WS: [email or web address] SCREENING DEXA SCAN [email or web address] CLINICAL INFORMATION: Starting aromataste inhibitor COMPARISON: 2019 FINDINGS: The L1-L4 bone mineral density measures 1.131 g/cm2. This corresponds to a T score score of -0.4 and Z score of 0.3. Left femoral neck bone mineral density measures 0.818 g/cm2. This corresponds to a T score of -1.5 an d Z score of -0.9. Right femoral neck bone mineral density measures 0.828 g/cm2. This corresponds to a T score -1.4of an d Z score of -0.9. Mean femoral neck bone mineral density measures 0.823 g/cm2. This corresponds to a T score of -1.5 an d Z score of -0.9. IMPRESSION: Normal bone mineralization lumbar spine. Osteopenia femoral necks. Patient's FRAX calculated 10 year probability for major osteoporotic fracture is 15.7% and osteoporot ic hip fracture is 2.1%. Bone mineral density in the lumbar spine decreased -2.6% Bone mineral density in the femoral necks decreased -2.0%
== END 2023-06-28 13:23 | disposition home or self-care (01) ==
PROVIDERS: PCP Family Medicine; Visit Provider Nurse Practitioner Family
DX: Z13.820 Encounter for screening for osteoporosis (principal); Z79.811 Long term (current) use of aromatase inhibitors; M85.852 Other specified disorders of bone density and structure, left thigh; M85.851 Other specified disorders of bone density and structure, right thigh
CPT/HCPCS: 77080

== ENCOUNTER 2023-07-05 13:15 | Oncology outpatient (recurring) (ONCR) | payer OTHER, SELFPAY ==
--- NOTE | 2023-06-12 15:52 | N.ONRD TS_ITS ---
Radiation Oncology Treatment Summary Patient: Shanique Devi MR#: [id number] : 1960 Age: 63 Sex: Female Dictated by: Phillip Ferraro Date of Service: 06/12/2023 Referring Physician(s) : Alvaro Barahona M.D. Diagnosis: Breast, left, invasive ductal carcinoma, grade 2, stage [id number], ER 100, DC 5, HER2 negative Radiotherapy to Date: Course: LT [id number], Treatment Site: L ChestWall, Ref. ID: Lt [id number], Energy: 15X/6X, Dose/Fx (cGy): 200, #Fx: 25 / 25, Dose Correction (cGy): 0, Total Dose (cGy): 5,000, Start Date: 05/08/2023, End Date: 06/12/2023, Elapsed Days: 35 LT [id number], Treatment Site: SCLV, Ref. ID: [id number], Energy: 15X/6X, Dose/Fx (cGy): 200, #Fx: 25 / 25, Dose Correction (cGy): 0, Total Dose (cGy): 5,000, Start Date: 05/08/2023, End Date: 06/12/2023, Elapsed Days: 35 Clinical Summary: The patient tolerated RT well. She developed lymphedema and is now wearing a sleeve. She is being actively treated. She developed a very brisk skin reaction and currently has severe erythema and dry desquamation. There are no moist areas. She is applying Aquaphor and hydrocortisone 1% and other preparations she has at home. Plan: End of treatment today. Continue on Aquaphor and hydrocortisone 1% until the skin reaction resolves. If the skin reaction gets significantly worse she will come in for a checkup. Follow up in one month. Signed by: Phillip Ferraro>06/12/2023 3:50:30 PM <<Signature on File>>
--- NOTE | 2023-06-20 15:53 | ONCRAD EPV_ITS ---
Radiation Oncology Established Patient Visit Patient: Marito Bay [id number] : 1960> Age: 63 Sex: Female Dictated by: Juancarlos Rapp Date of Service: 06/20/2023 Referring Physician(s) : Alvaro Barahona M.D. Diagnosis: , pT2 pN2A M0 invasive ductal carcinoma, grade 2 involving the left breast. ER 100, CA 5, HER2 negative Radiotherapy to Date: Course: LT [id number], Treatment Site: L ChestWall, Ref. ID: Lt [id number], Energy: 15X/6X, Dose/Fx (cGy): 200, #Fx: 25 / 25, Dose Correction (cGy): 0, Total Dose (cGy): 5,000, Start Date: 05/08/2023, End Date: 06/12/2023, Elapsed Days: 35 Course: LT [id number], Treatment Site: SCL, Ref. ID: [id number], Energy: 15X/6X, Dose/Fx (cGy): 200, #Fx: 25 / 25, Dose Correction (cGy): 0, Total Dose (cGy): 5,000, Start Date: 05/08/2023, End Date: 06/12/2023, Elapsed Days: 35 Current History: Patient completed radiation therapy last week and complains of continued irritation of the skin of the left chest wall and axilla. Current Medications: Acetaminophen-Codeine, antacid Calcium, ascorbic Acid, bacitracin, ceFAZolin in Sodium Chloride, daily Vitamin, dexamethasone, docusate Sodium, escitalopram Oxalate, lORazepam, ondansetron HCl, prochlorperazine Maleate. Allergies: Current Complaints / Review of Systems: . She is utilizing Vaseline and hydrocortisone 1% frequently. She notes mild edema of the left upper extremity. She denies fever or chills. She is taking Tylenol for as needed for pain and is able to sleep. She denies difficulty with constipation from the codeine in the Tylenol No. 4. Vital Signs: Performed on 06/20/2023 9:43 AM BMI - 31.618 kg/m2 (high), Height - 65 in, Weight - 190 lbs, Temperature - 97.1 f, Pulse - 98 /min, Respiration - 16 /min, O2 Sat - 96 %, Pain - 6, Fatigue - 8 and BP - 125/ 84 mm(hg). Physical Exam: General: Alert and oriented x 3. No acute distress. HEENT: Normocephalic, atraumatic. Extraocular Movements Intact: Pupils Equal, Round, Reactive to Light and Accommodation: Sclerae anicteric. Oral cavity is clear without lesions, masses or ulcers. NECK: Supple without supraclavicular or jugular lymphadenopathy. LUNGS: Clear to auscultation bilaterally without rales, rhonchi or wheeze. HEART: Regular rate and rhythm, normal S1 and S2 without murmur, gallop or rub. BREASTS: Right breast intact without erythema or desquamation. Left breast is surgically absent. There is a small area of erythema at the head of the left clavicule. There is an area of superficial ulceration in the central left chest wall and a larger area of superficial ulceration under the left axilla. Skin of the left chest wall is darkened. Mastectomy scar is intact without moist desquamation or purulent drainage. MUSCULOSKELETAL: No tenderness or percussion pain over the axial skeleton, scapulae or pelvis. ABDOMEN: Soft, nontender, nondistended without masses or organomegaly. Bowell sounds are present. EXTREMITIES: No peripheral edema is identified. Limited motor and sensory examination are grossly intact and symmetric bilaterally. NEUROLOGIC: Cranial nerves II ???XII are grossly intact. Normal sensation, strength 5/5 in all extremities, normal gait, no ataxia. Performance Status: ECOG 1 Lab: None pending. Pathology: Imaging: See HPI Impression: Sheryl Devi is experiencing the usual and expected moist desquamation of the left chest wall. Her pain is well controlled with the Tylenol #4. Silvadene cream has been prescribed to be applied 3 times daily along with continued use of the Vaseline and hydrocortisone. She has been instructed to contact our office if her symptoms worsen, if she develops purulent drainage, or fevers and chills. Signed by: 06/20/2023 3:52:14 PM <<Signature on File>> Time spent with patient: 20 minutes CPT Code: CPT Code:
[2023-06-21 13:35] LABS: Basophils % 0.6 %; Eosinophils # 0.3 10^3/uL (0.0-0.8); Eosinophils % 4.9 %; Hematocrit 39.7 % (36-47); Lymphocytes # 0.4 10^3/uL (0.8-4.8); Lymphocytes % 7.9 %; Mean Corpuscular HGB Conc 32.7 g/dL (30-55); Mean Corpuscular Hemoglobin 29.7 pg (27-33); Mean Corpuscular Volume 90.8 fl (85-98); Mean Platelet Volume 9.6 fL (7.4-10.4); Monocytes # 0.5 10^3/uL (0.2-0.9); Monocytes % 9.9 %; Neutrophils # 4.07 10^3/uL (1.8-7.7); Neutrophils % 76.3 %; Nucleated Red Blood Cells % 0 %; Platelet Count 256 10^3/cmm (157-399); Red Blood Count 4.37 10^6/uL (3.85-5.65); Red Cell Distribution Width 14.2 % (12.1-15.1); White Blood Count 5.33 10^3/uL (3.29-11.43)
[2023-06-21 14:07] LABS: Alanine Aminotransferase 19 U/L (0-33); Albumin Level 4.1 g/dL (3.5-5.2); Alkaline Phosphatase 74 U/L (35-105); Anion Gap 12.2 (5-19); Aspartate Amino Transferase 19 U/L (0-32); Blood Urea Nitrogen 16 mg/dL (8-23); Calcium 9.2 mg/dL (8.5-10.5); Carbon Dioxide 28 mmol/L (22-29); Chloride 105 mmol/L (98-107); Globulin 2.8 g/dL (1.3-4.6); Glomerular Filtration Rate 123.8 mL/min (90-130); Glucose 94 mg/dL (65-115); Osmolality Calculated 293 mOsm/kg (285-295); Potassium 4.2 mmol/L (3.5-5.1); Sodium 141 mmol/L (136-145); Total Bilirubin 0.5 mg/dL (0.15-1.2); Total Protein 6.9 g/dL (6.6-8.7)
[2023-06-21 14:19] LABS: 25 Hydroxy Vitamin D 23 ng/mL (30-100)
[2023-07-05 13:20] VITALS: BP 105/76; PULSE 85; RESP 16; TEMP 36.6; O2SAT 97
[2023-07-05 13:26] LABS: Basophils % 1.1 %; Eosinophils # 0.3 10^3/uL (0.0-0.8); Hematocrit 35.7 % (36-47); Lymphocytes # 0.7 10^3/uL (0.8-4.8); Lymphocytes % 18.4 %; Mean Corpuscular HGB Conc 33.6 g/dL (30-55); Mean Corpuscular Hemoglobin 29.9 pg (27-33); Mean Corpuscular Volume 88.8 fl (85-98); Mean Platelet Volume 9.4 fL (7.4-10.4); Monocytes # 0.2 10^3/uL (0.2-0.9); Monocytes % 6.1 %; Neutrophils # 2.41 10^3/uL (1.8-7.7); Neutrophils % 67.1 %; Nucleated Red Blood Cells % 0 %; Platelet Count 235 10^3/cmm (157-399); Red Blood Count 4.02 10^6/uL (3.85-5.65); Red Cell Distribution Width 13.7 % (12.1-15.1); White Blood Count 3.59 10^3/uL (3.29-11.43)
[2023-07-05 13:53] LABS: Alanine Aminotransferase 14 U/L (0-33); Alkaline Phosphatase 73 U/L (35-105); Anion Gap 13.3 (5-19); Aspartate Amino Transferase 12 U/L (0-32); Blood Urea Nitrogen 18 mg/dL (8-23); Calcium 9.4 mg/dL (8.5-10.5); Carbon Dioxide 27 mmol/L (22-29); Chloride 107 mmol/L (98-107); Creatinine Clr Calc Pharmacy 79.0602; Globulin 2.6 g/dL (1.3-4.6); Glucose 89 mg/dL (65-115); Osmolality Calculated 297 mOsm/kg (285-295); Potassium 4.3 mmol/L (3.5-5.1); Sodium 143 mmol/L (136-145); Total Bilirubin 0.2 mg/dL (0.15-1.2); Total Protein 6.6 g/dL (6.6-8.7)
== END 2023-07-07 23:59 | disposition home or self-care (01) ==
PROVIDERS: Nurse Practitioner Family; PCP Family Medicine; Visit Provider Internal Medicine Medical Oncology
DX: C50.412 Malignant neoplasm of upper-outer quadrant of left female breast
CPT/HCPCS: 36415; 77014; 77336; 77387; 77412; 77427; 80053; 82306; 85025

== ENCOUNTER 2023-08-03 15:00 | Outpatient (CLI) | payer OTHER, SELFPAY ==
--- NOTE | 2023-08-03 15:15 | MR_ITS ---
WS: [id number] MRI LUMBAR SPINE NONCONTRAST TECHNIQUE: Sagittal T1, T2 and STIR imaging. Axial T1 and T2 imaging. CLINICAL INFORMATION: Lumbar radiculopathy COMPARISON: MRI 03/31/2022 FINDINGS: Counting performed from the craniocervical junction. 6 lumbar type vertebral bodies. This w ill be labeled L1-L6 today. Mild lumbar curve. No acute compression. Grade 1 anterolisthesis L5 on L6. L1-L2: Mild annular bulging. Spinal canal and foramen are patent. L2-L3: Mild narrowing RIGHT subarticular recess. Mild facet arthropathy. Mild RIGHT foraminal narrowi ng. L3-L4: Mild annular bulging with mild narrowing of the subarticular recess bilaterally. Small LEFT fo raminal protrusion with mild LEFT foraminal narrowing. RIGHT foramen is patent. Mild facet arthropath y. L4-L5: No significant disc bulging. Mild facet arthropathy. Spinal canal and foramen are patent. L5-S1: Grade 1 anterolisthesis L5 on S1. Moderate central canal stenosis with impingement traversing nerve roots bilaterally. Moderate facet arthropathy. Mild RIGHT and no significant LEFT foraminal aron rowing. L6-S1: Mild facet arthropathy. Spinal canal and foramina are patent. Visualized pelvic bony structures: Normal. Paravertebral soft tissues: Normal. IMPRESSION: 1. Counting performed from the craniocervical junction. 6 lumbar type vertebral bodies. This will be labeled L1-L6 today. 2. Interval RIGHT hemilaminectomy L5-L6 (previously labeled L4-5) 3. Moderate central canal stenosis L5-L6 slightly progressed compared to previous. Impingement of th e subarticular recess bilaterally. Anterolisthesis L5 on L6 has progressed slightly measuring 6 mm 4. Mild LEFT L3-4 foraminal narrowing. 5. Mild narrowing RIGHT subarticular recess L4-5. 6. Mild narrowing of the RIGHT L2-3 subarticular recess. 7. Moderate facet arthropathy at L5-L6 and L6-S1
== END 2023-08-03 15:01 | disposition home or self-care (01) ==
LOC: RAD 15:01
PROVIDERS: PCP Family Medicine; Visit Provider Family Medicine
DX: M54.16 Radiculopathy, lumbar region (principal); M48.061 Spinal stenosis, lumbar region without neurogenic claudication; M47.817 Spondylosis without myelopathy or radiculopathy, lumbosacral region; Z98.890 Other specified postprocedural states
CPT/HCPCS: 72148

== ENCOUNTER → 2023-08-21 16:01 | Outpatient (BNVA) | payer OTHER, SELFPAY | PROVIDERS: PCP Family Medicine; Visit Provider Orthopaedic Surgery | DX: M47.816 Spondylosis without myelopathy or radiculopathy, lumbar region (principal); M85.88 Other specified disorders of bone density and structure, other site; M43.16 Spondylolisthesis, lumbar region | CPT/HCPCS: 72100 ==

== ENCOUNTER 2023-08-23 13:58 | Oncology outpatient (recurring) (ONCR) | payer OTHER, SELFPAY ==
[2023-08-16 15:09] LABS: Basophils % 0.6 %; Eosinophils # 0.3 10^3/uL (0.0-0.8); Eosinophils % 5.2 %; Lymphocytes # 0.6 10^3/uL (0.8-4.8); Lymphocytes % 12.5 %; Mean Corpuscular HGB Conc 33.2 g/dL (30-55); Mean Corpuscular Hemoglobin 30.8 pg (27-33); Mean Corpuscular Volume 92.5 fl (85-98); Mean Platelet Volume 9.7 fL (7.4-10.4); Monocytes # 0.6 10^3/uL (0.2-0.9); Monocytes % 11.1 %; Neutrophils # 3.54 10^3/uL (1.8-7.7); Neutrophils % 70.2 %; Nucleated Red Blood Cells % 0 %; Platelet Count 223 10^3/cmm (157-399); Red Cell Distribution Width 13.5 % (12.1-15.1); White Blood Count 5.04 10^3/uL (3.29-11.43)
[2023-08-16 15:37] LABS: Alanine Aminotransferase 26 U/L (0-33); Albumin Level 4.2 g/dL (3.5-5.2); Alkaline Phosphatase 68 U/L (35-105); Anion Gap 12.7 (5-19); Aspartate Amino Transferase 19 U/L (0-32); Blood Urea Nitrogen 16 mg/dL (8-23); Carbon Dioxide 27 mmol/L (22-29); Chloride 105 mmol/L (98-107); Globulin 2.4 g/dL (1.3-4.6); Glomerular Filtration Rate 123.8 mL/min (90-130); Glucose 109 mg/dL (65-115); Osmolality Calculated 292 mOsm/kg (285-295); Potassium 4.7 mmol/L (3.5-5.1); Sodium 140 mmol/L (136-145); Total Bilirubin 0.3 mg/dL (0.15-1.2); Total Protein 6.6 g/dL (6.6-8.7)
== END 2023-09-06 23:59 | disposition home or self-care (01) ==
PROVIDERS: PCP Family Medicine; Visit Provider Nurse Practitioner Family
DX: Z79.811 Long term (current) use of aromatase inhibitors (principal); C50.412 Malignant neoplasm of upper-outer quadrant of left female breast; Z79.899 Other long term (current) drug therapy; Z17.0 Estrogen receptor positive status [ER+]; R06.02 Shortness of breath
CPT/HCPCS: 80053; 85025

== ENCOUNTER 2023-11-19 15:17 | Oncology outpatient (recurring) (ONCR) | payer OTHER, SELFPAY ==
[2023-11-16 10:22] LABS: Basophils % 0.6 %; Eosinophils # 0.2 10^3/uL (0.0-0.8); Hematocrit 39.4 % (36-47); Lymphocytes # 1.1 10^3/uL (0.8-4.8); Lymphocytes % 20.2 %; Mean Corpuscular HGB Conc 33.8 g/dL (30-55); Mean Corpuscular Hemoglobin 31.6 pg (27-33); Mean Corpuscular Volume 93.6 fl (85-98); Mean Platelet Volume 9.7 fL (7.4-10.4); Monocytes # 0.6 10^3/uL (0.2-0.9); Monocytes % 10.6 %; Neutrophils # 3.33 10^3/uL (1.8-7.7); Neutrophils % 64.2 %; Nucleated Red Blood Cells % 0 %; Platelet Count 260 10^3/cmm (157-399); Red Blood Count 4.21 10^6/uL (3.85-5.65); Red Cell Distribution Width 12.4 % (12.1-15.1); White Blood Count 5.19 10^3/uL (3.29-11.43)
[2023-11-16 10:40] LABS: Alanine Aminotransferase 24 U/L (0-33); Albumin Level 4.1 g/dL (3.5-5.2); Alkaline Phosphatase 82 U/L (35-105); Anion Gap 16.1 (5-19); Aspartate Amino Transferase 20 U/L (0-32); Blood Urea Nitrogen 18 mg/dL (8-23); Calcium 8.9 mg/dL (8.5-10.5); Carbon Dioxide 25 mmol/L (22-29); Chloride 103 mmol/L (98-107); Globulin 2.8 g/dL (1.3-4.6); Glomerular Filtration Rate 100.3 mL/min (90-130); Glucose 104 mg/dL (65-115); Osmolality Calculated 292 mOsm/kg (285-295); Potassium 4.1 mmol/L (3.5-5.1); Sodium 140 mmol/L (136-145); Total Bilirubin 0.3 mg/dL (0.15-1.2); Total Protein 6.9 g/dL (6.6-8.7)
== END 2023-12-06 23:59 | disposition home or self-care (01) ==
PROVIDERS: PCP Family Medicine; Visit Provider Nurse Practitioner Family
DX: Z53.9 Procedure and treatment not carried out, unspecified reason
CPT/HCPCS: 36415; 80053; 85025

== ENCOUNTER 2024-03-06 10:26 | Oncology outpatient (recurring) (ONCR) | payer OTHER, SELFPAY ==
[2024-03-05 15:38] LABS: Basophils % 0.6 %; Eosinophils # 0.2 10^3/uL (0.0-0.8); Eosinophils % 3.4 %; Hematocrit 41.2 % (36-47); Lymphocytes # 1.1 10^3/uL (0.8-4.8); Lymphocytes % 22.6 %; Mean Corpuscular Hemoglobin 32.1 pg (27-33); Mean Corpuscular Volume 94.5 fl (85-98); Mean Platelet Volume 9.5 fL (7.4-10.4); Monocytes # 0.5 10^3/uL (0.2-0.9); Monocytes % 10.3 %; Neutrophils # 2.94 10^3/uL (1.8-7.7); Neutrophils % 62.9 %; Nucleated Red Blood Cells % 0 %; Platelet Count 264 10^3/cmm (157-399); Red Blood Count 4.36 10^6/uL (3.85-5.65); Red Cell Distribution Width 12.9 % (12.1-15.1); White Blood Count 4.68 10^3/uL (3.29-11.43)
[2024-03-05 15:40] LABS: Alanine Aminotransferase 23 U/L (0-33); Albumin Level 4.2 g/dL (3.5-5.2); Alkaline Phosphatase 72 U/L (35-105); Anion Gap 12.4 (5-19); Aspartate Amino Transferase 17 U/L (0-32); Blood Urea Nitrogen 13 mg/dL (8-23); Carbon Dioxide 26 mmol/L (22-29); Chloride 105 mmol/L (98-107); Globulin 2.9 g/dL (1.3-4.6); Glomerular Filtration Rate 123.8 mL/min (90-130); Glucose 91 mg/dL (65-115); Osmolality Calculated 288 mOsm/kg (285-295); Potassium 4.4 mmol/L (3.5-5.1); Sodium 139 mmol/L (136-145); Total Bilirubin 0.4 mg/dL (0.15-1.2); Total Protein 7.1 g/dL (6.6-8.7)
[2024-03-06 14:34] LABS: 25 Hydroxy Vitamin D 101 ng/mL (30-100)
== END 2024-03-07 23:59 | disposition home or self-care (01) ==
PROVIDERS: PCP Family Medicine; Visit Provider Internal Medicine Medical Oncology
DX: C50.412 Malignant neoplasm of upper-outer quadrant of left female breast (principal); E55.9 Vitamin D deficiency, unspecified
CPT/HCPCS: 36415; 80053; 82306; 85025

== ENCOUNTER 2024-03-06 12:49 | Outpatient (CLI) | payer OTHER, SELFPAY ==
--- NOTE | 2024-03-06 12:56 | XR_ITS ---
WS: [id number] Exam: XR cervical spine 4-5V [id number] Date/Time of Exam: 03/06/2024 12:57 PM Reason For Exam: Cervical radiculopathy - With flexion and extension Comparison 03/08/2020. Ossified anterior fusion from C5-C7 with disc spacers. The fusion is in excellent alignment. No fract ure or dislocation. Moderate facet DJD at all levels. Normal paraspinal soft tissues. No significant flexion or extension instability. The bony neural foramina are patent bilaterally. The odontoid is in tact. XR/XR cervical spine 4-5V [id number] IMPRESSION: 1. Stable anterior C5-C7 fusion. 2. Degenerative changes. 3. No instability identified.
== END 2024-03-06 12:50 | disposition home or self-care (01) ==
LOC: RAD 12:49
PROVIDERS: PCP Family Medicine; Visit Provider Family Medicine
DX: M54.12 Radiculopathy, cervical region (principal); M43.22 Fusion of spine, cervical region; M50.30 Other cervical disc degeneration, unspecified cervical region; M51.36 Other intervertebral disc degeneration, lumbar region; M51.34 Other intervertebral disc degeneration, thoracic region; M53.3 Sacrococcygeal disorders, not elsewhere classified
CPT/HCPCS: 72050

== ENCOUNTER 2024-04-08 12:38 | Oncology outpatient (recurring) (ONCR) | payer OTHER, SELFPAY ==
--- NOTE | 2024-04-08 13:00 | MR_ITS ---
WS: [id number] MRI CERVICAL SPINE NONCONTRAST TECHNIQUE: Sagittal T1, T2 and STIR imaging. Axial T2, gradient, and fiesta imaging. CLINICAL INFORMATION: Cervical radiculopathy R>L COMPARISON: MRI 2019 FINDINGS: Straightening of the normal cervical lordosis. Slight anterolisthesis C3 on C4. Disc bulging worse at C3-C4 and C4-C5. Interval postoperative changes anterior fusion C5-C7. Tiny central protrusion T1-T2 . C2-C3: Normal. C3-C4: Mild disc bulging with slight anterolisthesis. Tiny RIGHT paracentral protrusion. Spinal canal and foramen are patent. C4-C5: Mild disc bulging. Mild facet arthropathy. Mild LEFT and no significant RIGHT foraminal narrow ing. C5-C6: Postoperative changes ACDF. Mild bilateral bony foraminal narrowing. Spinal canal is patent. C6-C7: Postoperative changes ACDF. Spinal canal is patent. Mild bilateral bony foraminal narrowing. C7-T1: Slight anterolisthesis C7 on T1. Mild LEFT and no significant RIGHT foraminal narrowing. Spina l canal is patent. Visualized brain stem structures: Normal. Prevertebral soft tissues: Normal. MR/MR cervical spin wo con* [id number] IMPRESSION: 1. Straightening of the normal cervical lordosis. Slight anterolisthesis C3 on C4 and C4 on C5. 2. Postoperative changes C5-C7. 3. No significant central canal stenosis. 4. Mild bony foraminal narrowing worse at LEFT C5-C6, bilateral C6-C7, and LEF T C7-T1.
== END 2024-05-07 23:59 | disposition home or self-care (01) ==
LOC: RAD 12:38 → ONCMED 04-22 07:41
PROVIDERS: PCP Family Medicine; Visit Provider Family Medicine
DX: M54.12 Radiculopathy, cervical region (principal); M48.02 Spinal stenosis, cervical region; Z98.890 Other specified postprocedural states
CPT/HCPCS: 72141

== ENCOUNTER → 2024-08-23 12:35 | Outpatient (BNVA) | payer OTHER, SELFPAY | PROVIDERS: PCP Family Medicine; Visit Provider Nurse Practitioner | DX: R39.9 Unspecified symptoms and signs involving the genitourinary system (principal) | CPT/HCPCS: 81000 ==

== ENCOUNTER 2024-12-23 10:19 | Outpatient (CLI) | payer OTHER, SELFPAY ==
--- NOTE | 2024-12-23 10:23 | XRR_ITS ---
PROCEDURE INFORMATION: Exam: XR Left Shoulder Exam date and time: 12/23/2024 10:31 AM Age: 64 years old Clinical indication: Bilateral; Prior surgery; Surgery date: 6+ months; Surgery type: Cervical fusion. Rotator cuff right shoulder. Pain and numbness in the right and left arm that radiates down to the fingers. Several falls over the last month causing more pain. ; Additional info: Right shoulder pain TECHNIQUE: Imaging protocol: Radiologic exam of the left shoulder. Views: 2 or more views. COMPARISON: MR cervical spin wo con* [id number] 04/08/2024 1:12 PM FINDINGS: Bones/joints: No evidence of a left shoulder fracture or dislocation. There are prominent osteophytes along the medial left humeral head. The left clavicle is intact. Small calcific densities projecting over the rotator cuff suggesting calcific tendinopathy of the rotator cuff. The left upper ribs are unremarkable. Partially imaged fusion hardware in the cervical spine. Soft tissues: Surgical clips in the left axilla. XR/XR shoulder LT min 2V* [id number] IMPRESSION: 1. 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 2. Calcific tendinopathy of the rotator cuff.
--- NOTE | 2024-12-23 10:23 | XRR_ITS ---
PROCEDURE INFORMATION: Exam: XR Right Shoulder Exam date and time: 12/23/2024 10:31 AM Age: 64 years old Clinical indication: Bilateral; Prior surgery; Surgery date: 6+ months; Surgery type: Cervical fusion. Rotator cuff right shoulder. Pain and numbness in the right and left arm that radiates down to the fingers. Several falls over the last month causing more pain. ; Additional info: Left shoulder pain TECHNIQUE: Imaging protocol: Radiologic exam of the right shoulder. Views: 2 or more views. COMPARISON: MR cervical spin wo con* [id number] 04/08/2024 1:12 PM FINDINGS: Bones/joints: There is no evidence of a right shoulder fracture or dislocation. There are significant, large osteophytes and degenerative changes of the right humeral head. The right clavicle is intact. There are mild chronic degenerative changes of the acromioclavicular joint. The right upper ribs are unremarkable. Cervical spine fusion hardware partially imaged. Soft tissues: Unremarkable. XR/XR shoulder RT min 2V* [id number] IMPRESSION: Chronic degenerative changes of the right shoulder without fracture.
== END 2024-12-23 10:20 | disposition home or self-care (01) ==
PROVIDERS: PCP Family Medicine; Visit Provider Family Medicine
DX: M19.012 Primary osteoarthritis, left shoulder (principal); M19.011 Primary osteoarthritis, right shoulder; Z98.890 Other specified postprocedural states; M25.712 Osteophyte, left shoulder; M25.711 Osteophyte, right shoulder; R93.6 Abnormal findings on diagnostic imaging of limbs; Z98.1 Arthrodesis status
CPT/HCPCS: 73030

== ENCOUNTER → 2025-01-08 14:06 | Outpatient (BNVA) | payer OTHER, SELFPAY | PROVIDERS: PCP Family Medicine; Visit Provider Orthopaedic Surgery | DX: M54.2 Cervicalgia (principal) | CPT/HCPCS: 72050 ==

== ENCOUNTER 2025-01-19 14:18 | Outpatient (CLI) | payer OTHER, SELFPAY ==
--- NOTE | 2025-01-19 14:30 | MR_ITS ---
WS: [id number] MRI CERVICAL SPINE NONCONTRAST TECHNIQUE: Sagittal T1, T2 and STIR imaging. Axial T2, gradient, and fiesta imaging. CLINICAL INFORMATION: Neck pain COMPARISON: 2023 FINDINGS: Straightening of the normal cervical doses. ACDF C5-C7. Cord signal is normal. C2-C3: Mild facet arthropathy. Mild RIGHT bony foraminal narrowing. C3-C4: Mild facet arthropathy. Mild RIGHT bony foraminal narrowing. C4-C5: Mild facet arthropathy. Mild disc bulging with mild bilateral foraminal narrowing RIGHT greater than LEFT. Tiny central protrusion. Spinal canal is patent. C5-C6: Postoperative changes ACDF. Mild to moderate bilateral bony foraminal narrowing. Spinal canal is patent. Mild facet arthropathy. C6-C7: Postoperative changes ACDF. Moderate LEFT greater than RIGHT bony foraminal narrowing. Spinal canal is patent. C7-T1: Slight anterolisthesis. Mild disc osteophyte ridging. Mild bilateral bony foraminal narrowing. Spinal canal is patentl. Visualized brain stem structures: Normal. Prevertebral soft tissues: Normal. Shallow disc protrusions in the upper thoracic spine. Small RIGHT thyroid nodule measuring 7 mm. MR/MR cervical spin wo con* [id number] IMPRESSION: 1. Straightening of the normal cervical lordosis. Prior postoperative changes ACDF C5-C7. 2. Shallow central protrusion C4-5 with slight contact of the cervical cord. T his is similar to previous. 3. Moderate LEFT greater than RIGHT bony foraminal narrowing at C6-7. 4. Mild to moderate bony foraminal narrowing C5-C6. 5. Overall no significant changes since 2023
== END 2025-01-19 14:19 | disposition home or self-care (01) ==
LOC: RAD 14:19
PROVIDERS: PCP Family Medicine; Visit Provider Orthopaedic Surgery
DX: M48.02 Spinal stenosis, cervical region (principal); Z98.890 Other specified postprocedural states; M47.892 Other spondylosis, cervical region; M25.78 Osteophyte, vertebrae; M48.03 Spinal stenosis, cervicothoracic region; E04.1 Nontoxic single thyroid nodule
CPT/HCPCS: 72141

== ENCOUNTER 2025-02-27 01:58 | Emergency (ER) | payer OTHER, SELFPAY ==
[2025-02-27 02:02] VITALS: BP 96/71; PULSE 135; RESP 20; O2SAT 100; BMI 30.7
--- NOTE | 2025-02-27 02:11 | ECG_ITS ---
[facility] Test Date: 2025-02-27 Pat Name: Shanique Devi Department: Room: Gender: Female Chamber Magistrate: : 1960 Requested By: Cooper Del Valle Order Number: [id number] Pickett MD: Shukri Fowler M.D. Measurements Intervals [place] Rate: 135 P: 67 NC: 126 QRS: 68 QRSD: 81 T: 43 QT: 300 QTc: 451 Interpretive Statements SINUS TACHYCARDIA ABNORMAL RHYTHM ECG Compared to ECG 03/19/2023 13:05:35 Sinus rhythm no longer present T-wave abnormality no longer present Electronically Signed On 02-27-2025 16:25:38 CDT by Shukri Fowler M.D. [email or web address]
[2025-02-27 03:16] LABS: Troponin(5th) Baseline 7 ng/L (0-10)
[2025-02-27 04:59] LABS: Troponin 5 2HR 6.63 ng/L (0-10)
[2025-02-27 05:05] LABS: Troponin 5 2HR Delta -0.37 ABS# (0-10)
== END 2025-02-27 05:38 | disposition left against medical advice (07) ==
PROVIDERS: General Practice; Emergency Provider Family Medicine; PCP Family Medicine
DX: R07.9 Chest pain, unspecified (principal); Z53.21 Procedure and treatment not carried out due to patient leaving prior to being seen by health care provider
CPT/HCPCS: 36415; 84484; 93005

== ENCOUNTER 2025-02-27 17:14 | Emergency (ER) | payer OTHER, SELFPAY ==
--- NOTE | 2025-02-27 17:17 | ECG_ITS ---
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
--- NOTE | 2025-02-27 17:18 | XRR_ITS ---
PROCEDURE INFORMATION: Exam: XR Chest Exam date and time: 02/27/2025 5:34 PM Age: 64 years old Clinical indication: Pain; Chest pressure; Additional info: Cp TECHNIQUE: Imaging protocol: Radiologic exam of the chest. Views: 1 view. COMPARISON: CR XR chest 1V portable [id number] 03/21/2023 10:13 AM FINDINGS: Tubes, catheters and devices: Surgical clips are seen bilaterally. Lungs: Unremarkable. No consolidation. Pleural spaces: Unremarkable. No pleural effusion. No pneumothorax. Heart/Mediastinum: Unremarkable. No cardiomegaly. Bones/joints: ACDF hardware partially imaged. XR/XR chest 1V portable [id number] IMPRESSION: No acute findings.
[2025-02-27 17:24] VITALS: BP 119/84; PULSE 100; RESP 18; TEMP 36.7; O2SAT 100; BMI 30.7
--- NOTE | 2025-02-27 17:28 | CTR_ITS ---
PROCEDURE INFORMATION: Exam: CTA Chest With Contrast Exam date and time: 02/27/2025 6:03 PM Age: 64 years old Clinical indication: Pain and abnormal findings; Abnormal lab test; Elevated lipase; Nausea and other: Diarrhea; Abdominal pain; Generalized; Other: N/a; Chest pressure; Prior surgery; Surgery date: 6+ months; Surgery type: Mastectomy. Gb. Appy. Hysterectomy. Cervical fusion. Chest and abd pain with nausea and diarrhea. Elevated lipase. History of breast cancer. ; Additional info: Cp/abd pain TECHNIQUE: Imaging protocol: Computed tomographic angiography of the chest with contrast. Exam focused on the arteries. 3D rendering (Not supervised by radiologist): MIP and/or 3D reconstructed images were created by the technologist. Radiation optimization: All CT scans at this facility use at least one of these dose optimization techniques: automated exposure control; mA and/or kV adjustment per patient size (includes targeted exams where dose is matched to clinical indication); or iterative reconstruction. Contrast material: OMNI 350; Contrast volume: 100 ml; Contrast route: INTRAVENOUS (IV); COMPARISON: CR (CHEST, ) 02/27/2025 5:34 PM RADIATION DOSE METRICS: Total DLP (mGy-cm): 1245.41 FINDINGS: Pulmonary arteries: Normal. No pulmonary emboli. Aorta: Top-normal caliber of the ascending thoracic aorta. Thyroid: 2.4 cm nodular opacity along the posterior/inferior aspect of the right thyroid lobe. Lungs: Ill-defined ground-glass opacities in the right upper lobe and left lower lobe. Mild biapical pleural/parenchymal scarring, more pronounced on the left. Calcified right middle lobe granuloma. Few scattered sub 4 mm pulmonary nodules are seen. Pleural spaces: Unremarkable. No pneumothorax. No pleural effusion. Heart: Unremarkable. No cardiomegaly. No pericardial effusion. Lymph nodes: Calcified right hilar lymph nodes from prior granulomatous insult. No lymphadenopathy by size criteria. Diaphragm: Small sliding-type hiatal hernia. Bones/joints: Superior endplate Schmorl's node at T11. ACDF hardware partially imaged and appears intact within the field of view. No acute or aggressive osseous lesion. 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 Soft tissues: Status post bilateral mastectomies with associated postsurgical changes. risk factors), consider optional CT Chest at 12 months. (Reference: Jose) COMMENTS: Consistent with the [place] [employer]'s Incidental Findings Committee white paper (J Am Wayne Radiol 2015): In patients aged 35 years and older with an incidental thyroid nodule equal to or greater than 1.[address], MRI or extrathyroidal US, further evaluation with dedicated thyroid US is recommended for patients with normal life expectancy and without comorbidities. For smaller nodules without suspicious features, no further evaluation or follow up is recommended. REFERENCES: Joes Mancera et al. Guidelines for Management of Incidental Pulmonary Nodules Detected on CT Images: From the Fleischner Society 2017. Radiology. 2017;284(1):228-243. PROCEDURE INFORMATION: Exam: CT Abdomen And Pelvis With Contrast Exam date and time: 02/27/2025 6:03 PM Age: 64 years old Clinical indication: Pain and abnormal findings; Abnormal lab test; Elevated lipase; Nausea and other: Diarrhea; Abdominal pain; Generalized; Other: N/a; Chest pressure; Prior surgery; Surgery date: 6+ months; Surgery type: Mastectomy. Gb. Appy. Hysterectomy. Cervical fusion. Chest and abd pain with nausea and diarrhea. Elevated lipase. History of breast cancer. ; Additional info: Cp/abd pain TECHNIQUE: Imaging protocol: Computed tomography of the abdomen and pelvis with contrast. Radiation optimization: All CT scans at this facility use at least one of these dose optimization techniques: automated exposure control; mA and/or kV adjustment per patient size (includes targeted exams where dose is matched to clinical indication); or iterative reconstruction. Contrast material: OMNI 350; Contrast volume: 100 ml; Contrast route: INTRAVENOUS (IV); COMPARISON: CT abdomen pelvis w con* [id number] 08/22/2022 3:34 PM RADIATION DOSE METRICS: Total DLP (mGy-cm): 1245.41 FINDINGS: Liver: The liver is enlarged, measuring 20 cm craniocaudal. Mild hepatic steatosis. Gallbladder and biliary ducts: Status post cholecystectomy. Mild prominence of the common bile duct is likely related to reservoir effect from prior cholecystectomy. Pancreas: The pancreas is atrophic. No ductal dilatation. Spleen: Normal. No splenomegaly. Adrenal glands: Normal. No mass. Kidneys and ureters: Multifocal cortical scarring within the kidneys. Striated appearance of the left kidney with areas of hypoattenuation. 6 mm calculus at the level of the left ureteropelvic junction with moderate upstream hydronephrosis. Stomach and bowel: Liquid stool seen throughout the colon. No evidence of bowel obstruction. Appendix: Status post appendectomy. Intraperitoneal space: Unremarkable. No free air. No significant fluid collection. Vasculature: Unremarkable. No abdominal aortic aneurysm. Lymph nodes: Unremarkable. No enlarged lymph nodes. Urinary bladder: Unremarkable as visualized. Reproductive: Status post hysterectomy. No suspicious adnexal mass. Bones/joints: Slight grade 1 anterolisthesis of L4 on L5. Diffuse osseous demineralization. Advanced bilateral facet arthropathy in the lower lumbar spine. Soft tissues: Tiny fat containing umbilical hernia. CT/CT angio chest w abd pel w con IMPRESSION: 1. Mild ground-glass opacities in the right upper and left lower lobes suspicious for a multifocal atypical infectious process. Consider follow-up CT chest in 6-12 weeks to evaluate for improvement or sooner if clinically warranted. 2. 2.4 cm nodular opacities along the posterior/inferior aspect of the right thyroid could represent a thyroid nodule. Recommend nonemergent thyroid ultrasound for further evaluation. 3. Status post bilateral mastectomies. 4. Sub 4 mm pulmonary nodules. For patients at low risk (minimal or absent history of smoking and of other known risk factors), no routine follow-up is indicated. For patients at high risk (history of smoking or of other known IMPRESSION: 1. 6 mm calculus at the level of the left ureteropelvic junction with moderate upstream hydronephrosis. 2. Striated appearance of the left kidney could be related to a delayed nephrogram from downstream obstruction. However, pyelonephritis may have a similar appearance. Correlate with physical exam and laboratory findings. 3. Liquid stool can be seen with diarrheal illness. 4. Hepatomegaly with hepatic steatosis.
--- NOTE | 2025-02-27 17:30 | W.ED.CHESTPA ---
Documented by User: Evelin Serrano MD 02/27/25 17:34 HPI - Chest Pain General: Chief Complaint: Chest Pain Stated Complaint: chestpain Time Seen by Provider: 02/27/25 17:20 Source: patient Mode of arrival: ambulatory Limitations: no limitations History of Present Illness: 64-year-old female who states that she has been having nausea vomiting diarrhea since last night. States she been having multiple episodes diarrhea with severe abdominal pain states is a cramping pain she rates an 8 out of 10. She also been having some intermittent chest pains but states she has been having chest pains for over a year. Denies any fevers denies any known sick contacts Associated symptoms: Reports abdominal pain, nausea and vomiting; Deny dyspnea or fever(s) Related Data Home Medications ?Medication ?Instructions ?Recorded ?Confirmed ascorbic acid (vitamin C) 500 mg 500 mg PO DAILY 03/19/23 02/27/25 tablet (Vitamin C) calcium carbonate 500 mg PO DAILY 03/19/23 02/27/25 multivitamin 1 tab PO DAILY 03/19/23 02/27/25 Previous Rx's ?Medication ?Instructions ?Recorded triamcinolone acetonide 0.1 % 1 applic topical 2XD #15 grams 12/17/23 topical cream escitalopram oxalate 20 mg tablet 20 mg PO DAILY #30 tabs 07/01/24 (Lexapro) lorazepam 1 mg tablet 1 mg PO TID PRN anxiety #30 tabs 11/27/24 cyclobenzaprine 10 mg tablet 10 mg PO TID PRN muscle spasm #30 12/16/24 tabs alendronate 70 mg tablet See Rx Instructions .Route 01/06/25 .COMPLEX #12 tabs meloxicam 15 mg tablet 15 mg PO DAILY #30 tabs 01/27/25 quetiapine 50 mg tablet See Rx Instructions .Route 01/27/25 .COMPLEX #30 tabs acetaminophen 300 mg-codeine 60 mg 1 tab PO Q6H PRN Pain #100 tabs 02/03/25 tablet tramadol 50 mg tablet 50 mg PO Q6H PRN pain 5 days #20 02/25/25 tabs hydrocodone 5 mg-acetaminophen 325 1 tab PO Q4H PRN pain #20 tabs 02/27/25 mg tablet naloxone 4 mg/actuation nasal 4 mg intranasal Q2M PRN opioid 02/27/25 spray (Narcan) overdose #2 ea sulfamethoxazole 800 1 tab PO BID 10 days #20 tabs 02/27/25 mg-trimethoprim 160 mg tablet (Bactrim DS) tamsulosin 0.4 mg capsule 0.4 mg PO DAILY #10 caps 02/27/25 Allergies Allergy/AdvReac Type Severity Reaction Status Date / Time Penicillins Allergy Intermediate rash Verified 02/27/25 16:52 morphine AdvReac Intermediate can't void Verified 02/27/25 16:52 promethazine (From Phenergan) AdvReac Intermediate vomiting Verified 02/27/25 16:52 Review of Systems Const: Denies: fever(s), chills, body aches or change in appetite ENMT: Denies: throat pain or dental pain Card: Reports: chest pain Resp: Denies: dyspnea GI: Reports: abdominal pain, nausea, vomiting and diarrhea : Denies: dysuria Musc: Denies: neck pain or back pain Skin/Breast: Denies: rash Neuro: Denies: headache(s) PFSH ED PFSH: Medical History Vitamin D deficiency Osteopenia MRSA (methicillin resistant staph aureus) culture positive Infection Cellulitis Degenerative arthritis Breast cancer Hx of anxiety disorder History of depression Hx of insomnia Hx of sleep apnea Seasonal allergies Urolithiasis Instability of joint Cervical disc disorder with myelopathy of mid-cervical region Surgical History History of removal of Port-a-Cath History of left breast biopsy (09/26/22) Ultrasound-guided biopsies of left breast and left axillary lymph nodes Port-A-Cath in place History of bilateral mastectomy (12/11/22) History of lumpectomy of left breast (11/08/22) S/P ureteral stent placement Hx of total knee arthroplasty History of open reduction and internal fixation (ORIF) procedure Hx of cholecystectomy Hx of appendectomy Hx of elbow surgery Hx of hysterectomy History of cervical spinal surgery (2019) 01/26/2020 Dr. Lauren Barba. 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 [employer] Physical Exam Const: COMMON NORMALS: no acute distress, patient oriented x3 and healthy appearing HENMT: COMMON NORMALS: normocephalic and atraumatic HEAD & SCALP: normocephalic and atraumatic Eye: COMMON NORMALS: conjunctivae normal CONJUNCTIVA: Yes conjunctivae normal Neck/C-Spine: COMMON NORMALS: full ROM and supple Chest: COMMONS NORMALS: normal inspection of the chest Resp: COMMON NORMALS: normal respiratory effort, No retractions, No use of accessory muscles and clear to auscultation bilaterally AUSCULTATION: clear to auscultation bilaterally Cardio: COMMON NORMALS: regular rate, regular rhythm and No murmurs present (Cardio) RATE: regular rate RHYTHM: regular rhythm GI: COMMON NORMALS: Normal to inspection, nondistended, normoactive bowel sounds present, Soft to palpation and no masses PALPATION: Yes Soft to palpation OTHER: diffuse tenderness Extremity: COMMON NORMALS: normal to inspection and full ROM Neuro: COMMON NORMALS: patient oriented x3, moves all extremities and no focal motor deficits Psych: COMMON NORMALS: mental status grossly normal, Normal thought process present and cooperative THOUGHT PROCESS: Normal thought process present Skin: COMMON NORMALS: no rashes or lesions noted and no wounds GENERAL SKIN EXAM: no rashes or lesions noted Course Vital Signs: Vital signs: Vital Signs Temperature 98.1 F 02/27/25 17:24 Pulse Rate 90 02/27/25 22:04 Respiratory Rate 18 02/27/25 22:04 Blood Pressure 116/73 02/27/25 22:04 Pulse Oximetry 97 02/27/25 22:04 Oxygen Delivery Me thod Room Air 02/27/25 21:36 MDM - Chest Pain Medical Records I reviewed the patient's medical records. Lab Data 02/27/25 17:27 02/27/25 17:27 Radiology Impressions Chest X-Ray 02/27/25 17:18 IMPRESSION: No acute findings. Chest/Abdomen/Pelvis CT 02/27/25 17:28 IMPRESSION: 1. Mild ground-glass opacities in the right upper and left lower lobes suspicious for a multifocal atypical infectious process. Consider follow-up CT chest in 6-12 weeks to evaluate for improvement or sooner if clinically warranted. 2. 2.4 cm nodular opacities along the posterior/inferior aspect of the right thyroid could represent a thyroid nodule. Recommend nonemergent thyroid ultrasound for further evaluation. 3. Status post bilateral mastectomies. 4. Sub 4 mm pulmonary nodules. For patients at low risk (minimal or absent history of smoking and of other known risk factors), no routine follow-up is indicated. For patients at high risk (history of smoking or of other known IMPRESSION: 1. 6 mm calculus at the level of the left ureteropelvic junction with moderate upstream hydronephrosis. 2. Striated appearance of the left kidney could be related to a delayed nephrogram from downstream obstruction. However, pyelonephritis may have a similar appearance. Correlate with physical exam and laboratory findings. 3. Liquid stool can be seen with diarrheal illness. 4. Hepatomegaly with hepatic steatosis. Laboratory Results WBC 8.63 10^3/uL (3.29-11.43) 02/27/25 17:27 RBC 4.31 10^6/uL (3.85-5.65) 02/27/25 17:27 Hgb 12.90 g/dL (11.27-16.99) 02/27/25 17:27 Hct 40.2 % (36-47) 02/27/25 17:27 MCV 93.3 fl (85-98) 02/27/25 17: MCH 29.9 pg (27-33) 02/27/25 17: MCHC 32.1 g/dL (30-55) 02/27/25 17:27 RDW 13.6 % (12.1-15.1) 02/27/25 17:27 Plt Count 447 10^3/cmm (157-399) H 02/27/25 17:27 MPV 9.7 fL (7.4-10.4) 02/27/25 17:27 Neut % (Auto) 77.2 % 02/27/25 17:27 Lymph % (Auto) 11.1 % 02/27/25 17:27 [place] % (Auto) 11.1 % 02/27/25 17:27 Eos % (Auto) 0.2 % 02/27/25 17:27 Baso % (Auto) 0.2 % 02/27/25 17:27 Neut # (Auto) 6.65 10^3/uL (1.8-7.7) 02/27/25 17: Lymph # (Auto) 1.0 10^3/uL (0.8-4.8) 02/27/25 17:27 [place] # (Auto) 1.0 10^3/uL (0.2-0.9) H 02/27/25 17:27 Eos # (Auto) 0.0 10^3/uL (0.0-0.8) 02/27/25 17: Baso # (Auto) 0.0 10^3/uL (0.0-0.1) 02/27/25 17: Nucleated RBC % (auto) 0 % 02/27/25 17: Nucleated RBCs # 0.0 /100WBC 02/27/25 17: PT 12.90 SECONDS (12.1-14.9) 02/27/25 17: INR 0.91 (0.8-1.2) 02/27/25 17: Sodium 138 mmol/L (136-145) 02/27/25 17: Potassium 4.5 mmol/L (3.5-5.1) 02/27/25 17: Chloride 101 mmol/L (98-107) 02/27/25 17: Carbon Dioxide 19 mmol/L (22-29) L 02/27/25 17: Anion Gap 22.5 (5-19) H 02/27/25 17: BUN 31 mg/dL (8-23) H 02/27/25 17:27 Creatinine 1.2 mg/dL (0.5-0.9) H 02/27/25 17:27 GFR Calculation 44.9 mL/min (90-130) L 02/27/25 17: Glucose 100 mg/dL (65-115) 02/27/25 17: Calculated Osmolality 293 mOsm/kg (285-295) 02/27/25 17: Calcium 9.5 mg/dL (8.5-10.5) 02/27/25 17: Total Bilirubin 0.4 mg/dL (0.15-1.2) 02/27/25 17: AST 15 U/L (0-32) 02/27/25 17: ALT 21 U/L (0-33) 02/27/25 17: Alkaline Phosphatase 73 U/L (35-105) 02/27/25 17: Troponin T Baseline 11 ng/L (0-10) H 02/27/25 17: Troponin T 120 Minute 9.29 ng/L (0-10) 02/27/25 19: Delta Troponin T -1.71 ABS# (0-10) L 02/27/25 19: Total Protein 7.3 g/dL (6.6-8.7) 02/27/25 17: Albumin 4.4 g/dL (3.5-5.2) 02/27/25 17: Globulin 2.9 g/dL (1.3-4.6) 02/27/25 17: Lipase 102 U/L (13-60) H 02/27/25 17: Urine Color Yellow (Yellow) 02/27/25 18: Urine Appearance Cloudy (CLEAR) A 02/27/25 18: Urine pH 5.0 (5-7) 02/27/25 18: Ur Specific [place] 1.078 (1.005-1.030) H 02/27/25 18: Urine Protein 1+ (Negative) A 02/27/25 18: Urine Glucose (UA) Negative (Normal) 02/27/25 18: Urine Ketones Negative (Negative) 02/27/25 18: Urine Blood 2+ (Negative) A 02/27/25 18: Urine Nitrate Positive (Negative) A 02/27/25 18: Urine Bilirubin Negative (Negative) 02/27/25 18: Urine Urobilinogen 0.2 mg/dL (Negative) 02/27/25 18: Ur Leukocyte Esterase 2+ (Negative) A 02/27/25 18: Urine RBC 11-20 /hpf (0-2) H 02/27/25 18: Urine WBC >100 /hpf (0-5) H 02/27/25 18:27 Ur Squamous Epith Cells 0-5 /hpf (0-5) 02/27/25 18: Calcium Oxalate Crystal 0-4 /hpf H 02/27/25 18:27 Amorphous Sediment Not Reportable 02/27/25 18:27 Urine Bacteria 1+ /hpf (NONE) H 02/27/25 18:27 Hyaline Casts 5.77 /lpf 02/27/25 18:27 XR interpretation done by ED provider, pending radiology final review EKG Data EKG 1: I personally reviewed and interpreted this EKG as follows: EKG interpretation date: 02/27/25 EKG interpretation time: 17:17 Interpretation: sinus tach hr [address] elevation qrs 82 qtc 397 Discharge Plan Discharge Patient Disposition: Home Clinical Impression: Left nephrolithiasis Acute cystitis Qualifiers: Hematuria presence: with hematuria Qualified Code(s): N30.01 - Acute cystitis with hematuria Condition: Stable Prescriptions: New sulfamethoxazole-trimethoprim [Bactrim DS] 800-160 mg tablet 1 tab PO BID 10 Days Qty: 20 0RF hydrocodone-acetaminophen 5-325 mg tablet 1 tab PO Q4H PRN (Reason: pain) Qty: 20 0RF naloxone [Narcan] 4 mg/actuation spray,non-aerosol 4 mg intranasal Q2M PRN (Reason: opioid overdose) Qty: 2 0RF Rx Instructions: spray 1 dose into ONE nostril; alternate nostrils w each dose until help arrives tamsulosin 0.4 mg capsule 0.4 mg PO DAILY Qty: 10 0RF No Action escitalopram oxalate [Lexapro] 20 mg tablet 20 mg PO DAILY Qty: 30 6RF meloxicam 15 mg tablet 15 mg PO DAILY Qty: 30 3RF quetiapine 50 mg tablet See Rx Instructions .ROUTE .COMPLEX Qty: 30 3RF Dose Instruction: TAKE 1 TABLET BY MOUTH AT BEDTIME Rx Instructions: TAKE 1 TABLET BY MOUTH AT BEDTIME tramadol 50 mg tablet 50 mg PO Q6H PRN (Reason: pain) 5 Days Qty: 20 0RF triamcinolone acetonide 0.1 % cream 1 applic topical 2XD Qty: 15 0RF Rx Instructions: Apply to affected areas 2 times per day cyclobenzaprine 10 mg tablet 10 mg PO TID PRN (Reason: muscle spasm) Qty: 30 0RF lorazepam 1 mg tablet 1 mg PO TID PRN (Reason: anxiety) Qty: 30 3RF Rx Instructions: Take 0.5 to 1 tab every 8 hrs sparingly as needed for anxiety alendronate 70 mg tablet See Rx Instructions .ROUTE .COMPLEX Qty: 12 3RF Dose Instruction: TAKE 1 TABLET BY MOUTH every week Rx Instructions: TAKE 1 TABLET BY MOUTH every week acetaminophen-codeine 300-60 mg tablet 1 tab PO Q6H PRN (Reason: Pain) Qty: 100 0RF multivitamin Tablet 1 tab PO DAILY calcium carbonate 500 mg calcium (1,250 mg) Tablet 500 mg PO DAILY Vitamin C 500 mg Tablet 500 mg PO DAILY Discharge Orders: Discharge ED (Routine); Ordered 02/27/25 Ordered By: Cooper Del Valle Referrals: Alejandro Hopper MD [Primary Care Provider, Family Practice] Discharge Diet: Advance as tolerated Discharge Activity: Resume usual activity Patient Instructions: Opioid Safety, Pain Management Activity Restrictions/Additional Instructions: Please follow-up with Dr. Kolb next week. Return to the emergency department if you develop nausea, vomiting, fever, pain not controlled by the pain medicines prescribed. Strain your urine to catch stone for analysis. Print Language: Montserratian Coding Level of Care Code ED Supervisor [employer] for Chg Fwd Documented by User: Cooper Del Valle DO 02/27/25 22:42 HPI - Chest Pain General: Chief Complaint: Chest Pain Stated Complaint: chestpain Time Seen by Provider: 02/27/25 17:20 Related Data Home Medications ?Medication ?Instructions ?Recorded ?Confirmed ascorbic acid (vitamin C) 500 mg 500 mg PO DAILY 03/19/23 02/27/25 tablet (Vitamin C) calcium carbonate 500 mg PO DAILY 03/19/23 02/27/25 multivitamin 1 tab PO DAILY 03/19/23 02/27/25 Previous Rx's ?Medication ?Instructions ?Recorded triamcinolone acetonide 0.1 % 1 applic topical 2XD #15 grams 12/17/23 topical cream escitalopram oxalate 20 mg tablet 20 mg PO DAILY #30 tabs 07/01/24 (Lexapro) lorazepam 1 mg tablet 1 mg PO TID PRN anxiety #30 tabs 11/27/24 cyclobenzaprine 10 mg tablet 10 mg PO TID PRN muscle spasm #30 12/16/24 tabs alendronate 70 mg tablet See Rx Instructions .Route 01/06/25 .COMPLEX #12 tabs meloxicam 15 mg tablet 15 mg PO DAILY #30 tabs 01/27/25 quetiapine 50 mg tablet See Rx Instructions .Route 01/27/25 .COMPLEX #30 tabs acetaminophen 300 mg-codeine 60 mg 1 tab PO Q6H PRN Pain #100 tabs 02/03/25 tablet tramadol 50 mg tablet 50 mg PO Q6H PRN pain 5 days #20 02/25/25 tabs hydrocodone 5 mg-acetaminophen 325 1 tab PO Q4H PRN pain #20 tabs 02/27/25 mg tablet naloxone 4 mg/actuation nasal 4 mg intranasal Q2M PRN opioid 02/27/25 spray (Narcan) overdose #2 ea sulfamethoxazole 800 1 tab PO BID 10 days #20 tabs 02/27/25 mg-trimethoprim 160 mg tablet (Bactrim DS) tamsulosin 0.4 mg capsule 0.4 mg PO DAILY #10 caps 02/27/25 Allergies Allergy/AdvReac Type Severity Reaction Status Date / Time Penicillins Allergy Intermediate rash Verified 02/27/25 16:52 morphine AdvReac Intermediate can't void Verified 02/27/25 16:52 promethazine (From Phenergan) AdvReac Intermediate vomiting Verified 02/27/25 16:52 [facility] ED PFSH: Medical History Vitamin D deficiency Osteopenia MRSA (methicillin resistant staph aureus) culture positive Infection Cellulitis Degenerative arthritis Breast cancer Hx of anxiety disorder History of depression Hx of insomnia Hx of sleep apnea Seasonal allergies Urolithiasis Instability of joint Cervical disc disorder with myelopathy of mid-cervical region Surgical History History of removal of Port-a-Cath History of left breast biopsy (09/26/22) Ultrasound-guided biopsies of left breast and left axillary lymph nodes Port-A-Cath in place History of bilateral mastectomy (12/11/22) History of lumpectomy of left breast (11/08/22) S/P ureteral stent placement Hx of total knee arthroplasty History of open reduction and internal fixation (ORIF) procedure Hx of cholecystectomy Hx of appendectomy Hx of elbow surgery Hx of hysterectomy History of cervical spinal surgery (2019) 01/26/2020 Dr. Lauren Barba. 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 Serrano. Patient has a CT chest abdomen pelvis pending. CT demonstrated a mild groundglass opacification in the right and left lower lobe suspicious for multifocal atypical infectious process recommending follow-up in 6 to [address] 2.4 cm nodular opacification along the posterior and inferior aspects of the right thyroid recommending nonemergent thyroid ultrasound. 6 mm calculus at the left uteropelvic junction with moderate upstream hydronephrosis. Some concern for pyelonephritis on that side. Patient's urine consistent with acute cystitis. Patient not have a white count or fever. She did show a slight TAMMIE with normal electrolytes. As a result of a concern for infected stone Dr. Oni Kolb (urology) was consulted. He recommended to outpatient management with pain control, Bactrim, and Flomax. He will follow with the patient next week. He also gave return precautions of nausea/vomiting, pain not well-controlled by pain medication, or fevers they should present to the emergency department. Treatment plan discussed with the patient and her all of her in agreement with the above plan. Patient was discharged home in good condition Lab Data 02/27/25 17:27 02/27/25 17:27 Radiology Impressions Chest X-Ray 02/27/25 17:18 IMPRESSION: No acute findings. Chest/Abdomen/Pelvis CT 02/27/25 17:28 IMPRESSION: 1. Mild ground-glass opacities in the right upper and left lower lobes suspicious for a multifocal atypical infectious process. Consider follow-up CT chest in 6-12 weeks to evaluate for improvement or sooner if clinically warranted. 2. 2.4 cm nodular opacities along the posterior/inferior aspect of the right thyroid could represent a thyroid nodule. Recommend nonemergent thyroid ultrasound for further evaluation. 3. Status post bilateral mastectomies. 4. Sub 4 mm pulmonary nodules. For patients at low risk (minimal or absent history of smoking and of other known risk factors), no routine follow-up is indicated. For patients at high risk (history of smoking or of other known IMPRESSION: 1. 6 mm calculus at the level of the left ureteropelvic junction with moderate upstream hydronephrosis. 2. Striated appearance of the left kidney could be related to a delayed nephrogram from downstream obstruction. However, pyelonephritis may have a similar appearance. Correlate with physical exam and laboratory findings. 3. Liquid stool can be seen with diarrheal illness. 4. Hepatomegaly with hepatic steatosis. Laboratory Results WBC 8.63 10^3/uL (3.29-11.43) 02/27/25 17: RBC 4.31 10^6/uL (3.85-5.65) 02/27/25 17:27 Hgb 12.90 g/dL (11.27-16.99) 02/27/25 17: Hct 40.2 % (36-47) 02/27/25 17:27 MCV 93.3 fl (85-98) 02/27/25 17: MCH 29.9 pg (27-33) 02/27/25 17: MCHC 32.1 g/dL (30-55) 02/27/25 17:27 RDW 13.6 % (12.1-15.1) 02/27/25 17:27 Plt Count 447 10^3/cmm (157-399) H 02/27/25 17:27 MPV 9.7 fL (7.4-10.4) 02/27/25 17:27 Neut % (Auto) 77.2 % 02/27/25 17:27 Lymph % (Auto) 11.1 % 02/27/25 17:27 [place] % (Auto) 11.1 % 02/27/25 17: Eos % (Auto) 0.2 % 02/27/25 17:27 Baso % (Auto) 0.2 % 02/27/25 17: Neut # (Auto) 6.65 10^3/uL (1.8-7.7) 02/27/25 17: Lymph # (Auto) 1.0 10^3/uL (0.8-4.8) 02/27/25 17: [place] # (Auto) 1.0 10^3/uL (0.2-0.9) H 02/27/25 17: Eos # (Auto) 0.0 10^3/uL (0.0-0.8) 02/27/25 17: Baso # (Auto) 0.0 10^3/uL (0.0-0.1) 02/27/25 17: Nucleated RBC % (auto) 0 % 02/27/25 17: Nucleated RBCs # 0.0 /100WBC 02/27/25 17: PT 12.90 SECONDS (12.1-14.9) 02/27/25 17: INR 0.91 (0.8-1.2) 02/27/25 17: Sodium 138 mmol/L (136-145) 02/27/25 17: Potassium 4.5 mmol/L (3.5-5.1) 02/27/25 17: Chloride 101 mmol/L (98-107) 02/27/25 17: Carbon Dioxide 19 mmol/L (22-29) L 02/27/25 17: Anion Gap 22.5 (5-19) H 02/27/25 17: BUN 31 mg/dL (8-23) H 02/27/25 17: Creatinine 1.2 mg/dL (0.5-0.9) H 02/27/25 17: GFR Calculation 44.9 mL/min (90-130) L 02/27/25 17: Glucose 100 mg/dL (65-115) 02/27/25 17: Calculated Osmolality 293 mOsm/kg (285-295) 02/27/25 17: Calcium 9.5 mg/dL (8.5-10.5) 02/27/25 17: Total Bilirubin 0.4 mg/dL (0.15-1.2) 02/27/25 17: AST 15 U/L (0-32) 02/27/25 17: ALT 21 U/L (0-33) 02/27/25 17: Alkaline Phosphatase 73 U/L (35-105) 02/27/25 17: Troponin T Baseline 11 ng/L (0-10) H 02/27/25 17: Troponin T 120 Minute 9.29 ng/L (0-10) 02/27/25 19: Delta Troponin T -1.71 ABS# (0-10) L 02/27/25 19: Total Protein 7.3 g/dL (6.6-8.7) 02/27/25 17: Albumin 4.4 g/dL (3.5-5.2) 02/27/25 17: Globulin 2.9 g/dL (1.3-4.6) 02/27/25 17: Lipase 102 U/L (13-60) H 02/27/25 17: Urine Color Yellow (Yellow) 02/27/25 18: Urine Appearance Cloudy (CLEAR) A 02/27/25 18: Urine pH 5.0 (5-7) 02/27/25 18: Ur Specific [place] 1.078 (1.005-1.030) H 02/27/25 18: Urine Protein 1+ (Negative) A 02/27/25 18: Urine Glucose (UA) Negative (Normal) 02/27/25 18: Urine Ketones Negative (Negative) 02/27/25: Urine Blood 2+ (Negative) A 02/27/25 18: Urine Nitrate Positive (Negative) A 02/27/25 18: Urine Bilirubin Negative (Negative) 02/27/25 18: Urine Urobilinogen 0.2 mg/dL (Negative) 02/27/25 18: Ur Leukocyte Esterase 2+ (Negative) A 02/27/25 18: Urine RBC 11-20 /hpf (0-2) H 02/27/25 18:27 Urine WBC >100 /hpf (0-5) H 02/27/25 18:27 Ur Squamous Epith Cells 0-5 /hpf (0-5) 02/27/25 18:27 Calcium Oxalate Crystal 0-4 /hpf H 02/27/25 18:27 Amorphous Sediment Not Reportable 02/27/25 18:27 Urine Bacteria 1+ /hpf (NONE) H 02/27/25 18:27 Hyaline Casts 5.77 /lpf 02/27/25 18:27 Discharge Plan Discharge Patient Disposition: Home Clinical Impression: Left nephrolithiasis Acute cystitis Qualifiers: Hematuria presence: with hematuria Qualified Code(s): N30.01 - Acute cystitis with hematuria Condition: Stable Prescriptions: New sulfamethoxazole-trimethoprim [Bactrim DS] 800-160 mg tablet 1 tab PO BID 10 Days Qty: 20 0RF hydrocodone-acetaminophen 5-325 mg tablet 1 tab PO Q4H PRN (Reason: pain) Qty: 20 0RF naloxone [Narcan] 4 mg/actuation spray,non-aerosol 4 mg intranasal Q2M PRN (Reason: opioid overdose) Qty: 2 0RF Rx Instructions: spray 1 dose into ONE nostril; alternate nostrils w each dose until help arrives tamsulosin 0.4 mg capsule 0.4 mg PO DAILY Qty: 10 0RF No Action escitalopram oxalate [Lexapro] 20 mg tablet 20 mg PO DAILY Qty: 30 6RF meloxicam 15 mg tablet 15 mg PO DAILY Qty: 30 3RF quetiapine 50 mg tablet See Rx Instructions .ROUTE .COMPLEX Qty: 30 3RF Dose Instruction: TAKE 1 TABLET BY MOUTH AT BEDTIME Rx Instructions: TAKE 1 TABLET BY MOUTH AT BEDTIME tramadol 50 mg tablet 50 mg PO Q6H PRN (Reason: pain) 5 Days Qty: 20 0RF triamcinolone acetonide 0.1 % cream 1 applic topical 2XD Qty: 15 0RF Rx Instructions: Apply to affected areas 2 times per day cyclobenzaprine 10 mg tablet 10 mg PO TID PRN (Reason: muscle spasm) Qty: 30 0RF lorazepam 1 mg tablet 1 mg PO TID PRN (Reason: anxiety) Qty: 30 3RF Rx Instructions: Take 0.5 to 1 tab every 8 hrs sparingly as needed for anxiety alendronate 70 mg tablet See Rx Instructions .ROUTE .COMPLEX Qty: 12 3RF Dose Instruction: TAKE 1 TABLET BY MOUTH every week Rx Instructions: TAKE 1 TABLET BY MOUTH every week acetaminophen-codeine 300-60 mg tablet 1 tab PO Q6H PRN (Reason: Pain) Qty: 100 0RF multivitamin Tablet 1 tab PO DAILY calcium carbonate 500 mg calcium (1,250 mg) Tablet 500 mg PO DAILY Vitamin C 500 mg Tablet 500 mg PO DAILY Discharge Orders: Discharge ED (Routine); Ordered 02/27/25 Ordered By: Cooper Del Valle Referrals: Alejandro Hopper MD [Primary Care Provider, Family Practice] Discharge Diet: Advance as tolerated Discharge Activity: Resume usual activity Patient Instructions: Opioid Safety, Pain Management Activity Restrictions/Additional Instructions: Please follow-up with Dr. Kolb next week. Return to the emergency department if you develop nausea, vomiting, fever, pain not controlled by the pain medicines prescribed. Strain your urine to catch stone for analysis. Print Language: Montserratian Coding Level of Care Code ED Supervisor [employer] for Deandra Reddy
[2025-02-27 17:36] LABS: Basophils % 0.2 %; Eosinophils % 0.2 %; Hematocrit 40.2 % (36-47); Lymphocytes % 11.1 %; Mean Corpuscular HGB Conc 32.1 g/dL (30-55); Mean Corpuscular Hemoglobin 29.9 pg (27-33); Mean Corpuscular Volume 93.3 fl (85-98); Mean Platelet Volume 9.7 fL (7.4-10.4); Monocytes % 11.1 %; Neutrophils # 6.65 10^3/uL (1.8-7.7); Neutrophils % 77.2 %; Nucleated Red Blood Cells % 0 %; Platelet Count 447 10^3/cmm (157-399); Red Blood Count 4.31 10^6/uL (3.85-5.65); Red Cell Distribution Width 13.6 % (12.1-15.1); White Blood Count 8.63 10^3/uL (3.29-11.43)
[2025-02-27 17:45] LABS: INR 0.91 (0.8-1.2)
[2025-02-27 17:52] LABS: Troponin(5th) Baseline 11 ng/L (0-10)
[2025-02-27 17:57] LABS: Alanine Aminotransferase 21 U/L (0-33); Albumin Level 4.4 g/dL (3.5-5.2); Alkaline Phosphatase 73 U/L (35-105); Anion Gap 22.5 (5-19); Aspartate Amino Transferase 15 U/L (0-32); Blood Urea Nitrogen 31 mg/dL (8-23); Calcium 9.5 mg/dL (8.5-10.5); Carbon Dioxide 19 mmol/L (22-29); Chloride 101 mmol/L (98-107); Creatinine Clr Calc Pharmacy 50.9994; Globulin 2.9 g/dL (1.3-4.6); Glomerular Filtration Rate 44.9 mL/min (90-130); Glucose 100 mg/dL (65-115); Lipase 102 U/L (13-60); Osmolality Calculated 293 mOsm/kg (285-295); Potassium 4.5 mmol/L (3.5-5.1); Sodium 138 mmol/L (136-145); Total Bilirubin 0.4 mg/dL (0.15-1.2); Total Protein 7.3 g/dL (6.6-8.7)
[2025-02-27] MEDS: morphine 4 mg/mL SDV 1 mL IVP ×2 (17:57→20:13)
[2025-02-27] MEDS: diphenoxylate/atropine Tablet 1 TAB PO (17:57)
[2025-02-27] MEDS: ondansetron 2 mg/ML SDV 2 mL 4 MG IVP (17:57)
[2025-02-27] MEDS: sodium chloride 0.9% 1,000 ML 999 ML IV (17:57)
[2025-02-27 18:35] LABS: Bilirubin Urine Negative (Negative); Blood Urine 2+ (Negative); Glucose Urine UA Negative (Normal); Ketones Urine Negative (Negative); Leukocyte Esterase Urine 2+ (Negative); Nitrate Urine Positive (Negative); Protein Urine 1+ (Negative); Urine Appearance Cloudy (CLEAR); Urine Color Yellow (Yellow); Urobilinogen Urine 0.2 mg/dL (Negative)
[2025-02-27 18:37] LABS: Bacteria Urine 1+ /hpf; Hyaline Casts Urine 5.77 /lpf; Squamous Epithelial Cell Urine 0-5 /hpf (0-5); WBC Urine >100 /hpf (0-5)
[2025-02-27 18:58] LABS: Specific Gravity, Urine 1.078 (1.005-1.030); UA Slide Review UA Slide Review Perf
[2025-02-27 18:59] LABS: Add Urine Culture? Yes; Calcium Oxalate Crystals Urine 0-4 /hpf
[2025-02-27 19:17] VITALS: PULSE 93; RESP 18; O2SAT 100
[2025-02-27] MEDS: piperacillin-tazobactam 3.375 GM in sodium chloride 0.9% (plus) 50 ML IV (19:33)
[2025-02-27] MEDS: tamsulosin 0.4 mg Capsule PO (19:33)
[2025-02-27 19:48] LABS: Troponin 5 2HR 9.29 ng/L (0-10)
[2025-02-27 19:49] LABS: Troponin 5 2HR Delta -1.71 ABS# (0-10)
[2025-02-27 20:13] VITALS: RESP 18
[2025-02-27] MEDS: levofloxacin-dextrose 5 % 750 MG/150 ML PREMIX 100 MG IV (20:13)
[2025-02-27 21:36] VITALS: BP 126/74; PULSE 68; RESP 16; O2SAT 95
[2025-02-27 22:04] VITALS: BP 116/73; PULSE 90; RESP 18; O2SAT 97
== END 2025-02-27 22:07 | disposition home or self-care (01) ==
PROVIDERS: Emergency Medicine; Emergency Provider General Practice; PCP Family Medicine
DX: N30.01 Acute cystitis with hematuria (principal); R07.9 Chest pain, unspecified; Z79.899 Other long term (current) drug therapy
CPT/HCPCS: 36415; 71045; 71275; 74177; 80053; 81001; 83690; 84484; 85025; 85610; 87077; 87086; 87186; 93005; 96365; 96367; 96375; 96376; 99285; J1956; J2270; J2405; J2543; J7030; J9999

== ENCOUNTER 2025-03-31 12:58 | Outpatient (CLI) | payer OTHER, SELFPAY ==
--- NOTE | 2025-03-31 13:00 | MR_ITS ---
WS: [id number] MRI RIGHT SHOULDER NONCONTRAST TECHNIQUE: Sagittal T2, coronal T1, T2 and proton density imaging. Axial gradient PDE imaging. CLINICAL INFORMATION: possible rotator cuff tear COMPARISON: MRI 2007 FINDINGS: Interval rotator cuff repair since the MRI in 2006. Susceptibility artifact from surgical rotator cuff anchors degrades some images. Rotator cuff repair appears grossly intact. Interstitial tears involving the rotator cuff repair but no tendon retraction. Tiny undersurface tear involving the tendon repair. Advanced degenerative changes at the AC joint with moderate downsloping acromion with subacromial spurring. Impingement on the underlying rotator cuff. Fluid and edema at the AC joint. Narrowing of the subacromial space. Small amount of subacromial fluid. Infraspinatus appears intact. Normal teres minor. Normal subscapularis. Biceps tendon appears intact in the bicipital groove. Medial subluxation along the proximal groove. Intra-articular biceps tendon appears intact. Advanced degenerative narrowing at the glenohumeral articulation. Hypertrophic spurring along the medial humeral head and neck. Subchondral cystic change involving the glenoid. MR/MR shoulder RT wo con* [id number] IMPRESSION: 1. Prior rotator cuff repair appears grossly intact. Some images are degraded due to susceptibility artifact from rotator cuff anchors. Small interstitial te ars and tiny undersurface tear involving the rotator cuff repair but no tendon retraction. 2. Moderate to advanced arthritis at the AC joint with moderate downsloping ac romion with subacromial spurring. Impingement on the distal supraspinatus. 3. Biceps tendon appears intact within the bicipital groove. Medial subluxatio n of the biceps tendon along the proximal groove. 4. Advanced degenerative narrowing of the glenohumeral articulation with hyper trophic spurring along the humeral head and neck. Subchondral cystic change inv olving the glenoid.
== END 2025-03-31 12:59 | disposition home or self-care (01) ==
PROVIDERS: PCP Family Medicine; Visit Provider Physician Assistant
DX: M19.011 Primary osteoarthritis, right shoulder (principal); R93.7 Abnormal findings on diagnostic imaging of other parts of musculoskeletal system; M75.41 Impingement syndrome of right shoulder; S43.081A Other subluxation of right shoulder joint, initial encounter; X58.XXXA Exposure to other specified factors, initial encounter; M77.8 Other enthesopathies, not elsewhere classified; Z98.890 Other specified postprocedural states; M75.101 Unspecified rotator cuff tear or rupture of right shoulder, not specified as traumatic
CPT/HCPCS: 73221

== ENCOUNTER → 2025-05-19 15:25 | Outpatient (BNVA) | payer OTHER, SELFPAY | PROVIDERS: PCP Family Medicine; Visit Provider Family Medicine | DX: R06.02 Shortness of breath (principal) | CPT/HCPCS: 87070; 87205 ==

== ENCOUNTER 2025-05-22 13:49 | Outpatient (CLI) | payer OTHER, SELFPAY ==
--- NOTE | 2025-05-22 14:00 | USR_ITS ---
PROCEDURE INFORMATION: Exam: US Soft Tissue Head and Neck, TI-RADS Exam date and time: 05/22/2025 2:04 PM Age: 65 years old Clinical indication: Condition or disease; Thyroid disorder; Other: Nodule; Additional info: Thyroid nodule TECHNIQUE: Imaging protocol: Real-time ultrasound scan of the neck with image documentation. Exam focused on the thyroid. COMPARISON: MR cervical spin wo con* [id number] 04/08/2024 1:12 PM FINDINGS: Right thyroid lobe: The right thyroid lobe measures 2.2 x 1.8 x 4.3 cm. The background parenchyma is fairly homogeneous. Left thyroid lobe: The left thyroid lobe measures 1.1 x 0.8 x 3.5 cm. The background parenchyma is fairly homogeneous. Isthmus: The isthmus measures up to 0.3 cm in AP dimension. Thyroid nodule 1 Size: 0.8 x 0.6 x 1.0 cm Thyroid nodule 1 Location: Right thyroid lobe Thyroid nodule 1 Composition: Spongiform Thyroid nodule 1 Points: TI-RADS 1 Thyroid nodule 2 Size: 1.9 x 1.7 x 2.6 cm Thyroid nodule 2 Location: Exophytic nodule off the posterior right thyroid lobe Thyroid nodule 2 Composition: Predominantly solid Thyroid nodule 2 Echogenicity: Isoechoic Thyroid nodule 2 Shape: Rounded Thyroid nodule 2 Margins: Ill-defined Thyroid nodule 2 Echogenic foci: None Thyroid nodule 2 Points: TI-RADS 3 Lymph nodes: No enlarged nodes. US/US thyroid [id number] IMPRESSION: TI-RADS 3 exophytic nodule off the posterior right thyroid lobe meets criteria for FNA.
== END 2025-05-22 13:50 | disposition home or self-care (01) ==
LOC: RAD 13:50
PROVIDERS: PCP Family Medicine; Visit Provider Family Medicine
DX: E04.1 Nontoxic single thyroid nodule (principal)
CPT/HCPCS: 76536

== ENCOUNTER 2025-05-28 08:35 | Day surgery (SDC) | payer OTHER, SELFPAY ==
[2025-05-28] VITALS (13 sets, daily range): BP systolic 99–141; BP diastolic 52–78; PULSE 65–83; RESP 14–18; TEMP 36.2–36.9; O2SAT 90–100; BMI 33.2
--- NOTE | 2025-05-28 09:11 | ANES.PREANE2 ---
Pre-Anesthetic Assessment Height/Weight: Height 1.68 m Weight 93.44 kg Temp Pulse Resp BP Pulse Ox O2 Del Method 97.5 F L 78 16 133/78 96 Room Air 05/28/25 08:55 05/28/25 08:55 05/28/25 08:55 05/28/25 08:55 05/28/25 08:55 05/28/25 08:55 Operation Date: 05/28/25 08:55 Proposed Procedures p LEFT and RIGHT Carpal Tunnel Release(Bilateral) - Reji Duenas DO Familial anesthetic complications: NOne Was Beta Debi taken within 24 hours: N/A Was Clonidine taken within 24 hours: N/A Last intake: Intake Last Liquid Date 05/27/25 Last Liquid Time 23:30 Last Solid Date 05/27/25 Last Solid Time 23:30 Social No alcohol and No tobacco Exam alert, oriented x 3, clear to auscultation bilaterally and regular rate & rhythm Airway Mallampati: Class I Dentition: full Metabolic Thyroid Disease (thyroid nodule) Musc/skel hx bilateral mastectomy Anesthetic Plan ASA status: 2 Anesthesia: General Risk of > 500 ml blood loss (7ml/kg in children): No Medications/Allergies Home Medications ?Medication ?Instructions ?Recorded ?Confirmed ?Last Taken ?Type ascorbic acid (vitamin C) 500 mg 500 mg PO DAILY 03/19/23 05/27/25 05/27/25 History tablet (Vitamin C) calcium carbonate 500 mg PO DAILY 03/19/23 05/27/25 05/27/25 History multivitamin 1 tab PO DAILY 03/19/23 05/27/25 05/27/25 History cyclobenzaprine 10 mg tablet 10 mg PO TID PRN muscle spasm #30 12/16/24 05/27/25 Unknown Rx tabs alendronate 70 mg tablet See Rx Instructions .Route 01/06/25 05/28/25 05/24/25 Rx .COMPLEX #12 tabs meloxicam 15 mg tablet 15 mg PO DAILY #30 tabs 01/27/25 05/27/25 Unknown Rx quetiapine 50 mg tablet See Rx Instructions .Route 01/27/25 05/27/25 05/27/25 Rx .COMPLEX #30 tabs tramadol 50 mg tablet 50 mg PO Q6H PRN pain 5 days #20 02/25/25 05/27/25 Unknown Rx tabs hydrocodone 5 mg-acetaminophen 325 1 tab PO Q4H PRN pain #20 tabs 02/27/25 05/27/25 Unknown Rx mg tablet naloxone 4 mg/actuation nasal 4 mg intranasal Q2M PRN opioid 02/27/25 05/27/25 Unknown Rx spray (Narcan) overdose #2 ea escitalopram oxalate 20 mg tablet 20 mg PO DAILY #30 tabs 03/03/25 05/27/25 05/27/25 Rx (Lexapro) lorazepam 1 mg tablet 1 mg PO TID PRN anxiety #30 tabs 03/24/25 05/27/25 Unknown Rx benzonatate 100 mg capsule 100 mg PO Q4H PRN cough #30 caps 04/13/25 05/27/25 Unknown Rx albuterol sulfate 90 mcg/actuation 2 puff inhalation Q4H PRN 04/16/25 05/27/25 Unknown Rx aerosol inhaler (Ventolin HFA) shortness of breath or wheezing #8.5 grams acetaminophen 300 mg-codeine 60 mg 1 tab PO Q6H PRN Pain #100 tabs 04/27/25 05/27/25 Unknown Rx tablet hydrocodone 5 mg-acetaminophen 325 1 tab PO Q6H PRN pain 5 days #20 05/28/25 Unknown Rx mg tablet tabs Allergies Allergy/AdvReac Type Severity Reaction Status Date / Time Penicillins Allergy Intermediate rash Verified 04/21/25 15:25 morphine AdvReac Intermediate can't void Verified 04/21/25 15:25 promethazine (From Phenergan) AdvReac Intermediate vomiting Verified 04/21/25 15:25 PFSH Anesthesia Medical History (Updated 05/18/25 @ 15:10 by Alejandro Hopper MD) Vitamin D deficiency Osteopenia MRSA (methicillin resistant staph aureus) culture positive Infection Cellulitis Degenerative arthritis Breast cancer Hx of anxiety disorder History of depression Hx of insomnia Hx of sleep apnea Seasonal allergies Urolithiasis Instability of joint Cervical disc disorder with myelopathy of mid-cervical region Surgical History History of removal of Port-a-Cath History of left breast biopsy (09/26/22) Ultrasound-guided biopsies of left breast and left axillary lymph nodes Port-A-Cath in place History of bilateral mastectomy (12/11/22) History of lumpectomy of left breast (11/08/22) S/P ureteral stent placement Hx of total knee arthroplasty History of open reduction and internal fixation (ORIF) procedure Hx of cholecystectomy Hx of appendectomy Hx of elbow surgery Hx of hysterectomy History of cervical spinal surgery (2019) 01/26/2020 Dr. Lauren Barba. 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
[2025-05-28] MEDS: fentaNYL 50 mcg/mL INJ 2mL IVP (09:15)
--- NOTE | 2025-05-28 09:25 | W.PM.OPSFHP ---
Same Day Surgery H&P Indication for Procedure/HPI DATE OF PROCEDURE: May 28, 2025 CHIEF COMPLAINT/INDICATIONFOR SURGICAL PROCEDURE: Bilateral carpal tunnel syndrome PREOP DIAGNOSIS: Bilateral carpal tunnel syndrome PLANNED PROCEDURE: Operation Date: 05/28/25 08:55 Proposed Procedures p LEFT and RIGHT Carpal Tunnel Release(Bilateral) - Reji Duenas, DO Medications/Allergies* Home Medications ?Medication ?Instructions ?Recorded ?Confirmed ?Type ascorbic acid (vitamin C) 500 mg 500 mg PO DAILY 03/19/23 05/27/25 History tablet (Vitamin C) calcium carbonate 500 mg PO DAILY 03/19/23 05/27/25 History multivitamin 1 tab PO DAILY 03/19/23 05/27/25 History Allergies/Adverse Reactions Allergy/AdvReac Type Severity Reaction Status Date / Time Penicillins Allergy Intermediate rash Verified 04/21/25 15:25 morphine AdvReac Intermediate can't void Verified 04/21/25 15:25 promethazine (From Phenergan) AdvReac Intermediate vomiting Verified 04/21/25 15:25 Pertinent History/Comorbid Conditions* Medical History (Updated 05/18/25 @ 15:10 by Alejandro Hopper MD) Vitamin D deficiency Osteopenia MRSA (methicillin resistant staph aureus) culture positive Infection Cellulitis Degenerative arthritis Breast cancer Hx of anxiety disorder History of depression Hx of insomnia Hx of sleep apnea Seasonal allergies Urolithiasis Instability of joint Cervical disc disorder with myelopathy of mid-cervical region Surgical History (Updated 04/05/23 @ 10:32 by Alvaro Barahona MD) History of removal of Port-a-Cath History of left breast biopsy (09/26/22) Ultrasound-guided biopsies of left breast and left axillary lymph nodes Port-A-Cath in place History of bilateral mastectomy (12/11/22) History of lumpectomy of left breast (11/08/22) S/P ureteral stent placement Hx of total knee arthroplasty History of open reduction and internal fixation (ORIF) procedure Hx of cholecystectomy Hx of appendectomy Hx of elbow surgery Hx of hysterectomy History of cervical spinal surgery (2019) 01/26/2020 Dr. Lauren Barba. 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 Pertinent Exam Findings alert, oriented x 3, operative site marked and procedure specific exam findings Please refer to detailed orthopedic examination on 04/21/2025 listed below: Cervical Spine -Negative Spurling's Test Right Shoulder -Tender to palpation biceps tendon and AC joint -Range of motion full ROM with pain -Rotator cuff strength weakness and pain with external rotation -Jobes test positive -Speed's Test positive -O'Briens test positive -Garcia impingement positive -Crossover test positive -Empty can test positive -Radial pulse 2+, normal cap refill under 2 seconds and patient can wiggle fingers. -Sensation to hand intact Patient has negative Tinel's at the bilateral elbow over the cubital tunnel Patient has positive Tinel's over the bilateral carpal tunnel Positive Phalen's bilaterally Positive median nerve compression test bilaterally Positive thenar weakness noted on examination with subtle thenar atrophy appreciated. Recommendations Risks and benefits of procedure reviewed and Patient/family agree to proceed Surgery/Procedure today Other Plans: Plan to proceed to the OR today for left carpal tunnel release and right carpal tunnel release. Patient understands the ins and outs procedure the risk benefits complication alternatives of surgery. Understanding risk of surgery patient like to proceed with surgical invention. All questions answered at this time. Proceed to the OR today for bilateral carpal tunnel release. Coding Level of Care Code Acute Code for Chg Fwd
[2025-05-28] MEDS: acetaminophen 1,000 MG/100 ML PIGGYBACK 400 MG IV (09:35)
[2025-05-28] MEDS: lidocaine-epi 1% 20 mL INJ INJECTION (10:40)
[2025-05-28] MEDS: ROPivacaine 0.5% SDV 30 mL 150 MG INJECTION (10:40)
--- NOTE | 2025-05-28 11:01 | W.PM.BPON ---
Date of Procedure: [May 28, 2025] Surgeon: [Dr. Duenas DO] Special Inspector(s): [Alejandro Duenas PA-C] Procedure(s) performed: [Right carpal tunnel release Left carpal tunnel release] Findings of the procedure(s): [Right carpal tunnel syndrome and left carpal tunnel syndrome. Procedure went well and is planned] Estimated blood loss: [5 mL] Specimen(s) removed: [N/A] Post-operative diagnosis: [Right and left carpal tunnel syndrome]
--- NOTE | 2025-05-28 11:03 | PM.PACU ---
PACU note Narrative: Patient is a 65-year-old female just underwent a bilateral carpal tunnel release. Patient transferred to PACU in stable condition. Pain is well controlled. Dressing on hand is dry and in place. Patient's fingers are warm and well-perfused. Patient can wiggle fingers. normal cap refill under 2 seconds. Patient has normal elbow range of motion. Unable to assess sensation due to residual localized anesthetic. Exam: awake Disposition: discharged
--- NOTE | 2025-05-28 11:55 | SUR.PHASEII ---
WARM BLANKETS APPLIED.
[2025-05-28] MEDS: HYDROcodone-acetaminophen 5-325 mg Tablet 1 TAB PO (12:50)
--- NOTE | 2025-05-28 14:20 | P.OP_ITS ---
Operative Report Date of procedure: May 28, 2025 Surgeon: Reji Duenas DO Vice President Integrated: Alejandro Duenas PA-C: PA was necessary for assistance in this case with hand positioning to execute the procedure, retraction and protection of neurovascular structures as well as to assist with wound closure and dressing application. Procedure: Preop Diagnosis: Right Carpal Tunnel Syndrome Left Carpal Tunnel Syndrome Post-op diagnosis: Same Procedure done: 1. Right carpal tunnel release 2. Left Carpal Tunnel release Surgeon: Reji Duenas DO Anesthesia: MAC (Local) Estimated blood loss: [5 ]mL Tourniquet time [6 ]minutes left [7] minutes right IV fluids: 750cc Complications: None Findings: See operative report narrative Condition: stable Disposition: same day Brief History: Patient is a pleasant [65 ]year-old [ F] with right and left carpal tunnel syndrome. Patient has been worked up in the outpatient setting findings and physical examination consistent with this. Patient nerve conduction studies consistent with carpal tunnel syndrome. We detailed out patient's risk benefits complication alternatives with surgical and nonsurgical treatment options. Through shared decision making, patient agrees to proceed with surgical intervention of the right and left carpal tunnel release . Patient understands and agrees with current plan. All questions answered. Patient elects to proceed with surgical intervention. Procedure: Patient seen and evaluated in the preoperative holding area. Consent was reviewed and signed with patient. Correct extremity was marked. Patient was seen evaluated by the anesthesia department once cleared for surgery was brought back to the operative suite. Patient was kept on [employer] in supine position all bony prominences were well-padded patient properly secured to the bed. Right and left upper extremity was then placed onto an armboard. A nonsterile tourniquet was applied to the Right and left upper arm. Patient underwent anesthesia per the anesthesia department. Patient's Right and left upper extremity was then prepped and draped in standard orthopedic fashion. Final timeout performed. Patient received appropriate preoperative antibiotics. Under sterile aseptic technique patient received local anesthesia over the preplanned carpal tunnel incision sites. Esmarch was used to exsanguinate the Right upper extremity and tourniquet was insufflated to 250 mmHg. A standard mini open Right carpal tunnel incision was made. Starting distally at Strickland's cardinal line in line with the fourth ray extending proximally distal to the wrist crease centered over the carpal tunnel. Sharp scalpel incision was made through skin and subcutaneous tissue. Self-retaining retractor was placed and the palmar fascia was identified. This was then split longitudinally and direct visualization of the transverse carpal ligament was then made. I then utilizing scalpel feathered through the transverse carpal ligament until I entered the floor of the transverse carpal tunnel ligament into the carpal tunnel. Next I switched to dissection scissors and completed my release of the transverse carpal ligament distally with care to protect the recurrent motor branch. I completely released into the palmar fat and until no entrapment was noted distally. Care was made to protect the superficial palmar arch during my distal dissection. Next I utilized a nasal speculum placed on top of the transverse carpal ligament and utilize this to retract the subcutaneous fat and tissue and under direct loupe magnification was able to identify the transverse carpal ligament. Next I then protected the contents of the carpal tunnel and subsequently utilizing dissection scissors under loupe magnification completely released the transverse carpal ligament proximally into the antebrachial fascia. Care was made to protect the palmar cutaneous branch by keeping my scissors curved ulnarly. Once completely released, I then placed my Novelty and had appropriate decompression of the carpal tunnel proximally as well as distally. I then inspected the contents of the carpal tunnel which showed an hourglass shape of the median nerve showing its compression. No masses were noted. Tendons appeared healthy. Wound was then thoroughly irrigated. Tourniquet deflated. Hemostasis satisfactory with bipolar electrocautery. I then closed the incision with interrupted nylon stitches. Xeroform 4 x 4's and a bulky soft dressing was applied. Next proceeded with left carpal tunnel release. Esmarch was used to exsanguinate the left upper extremity and tourniquet was insufflated to 250 mmHg. A standard mini open left carpal tunnel incision was made. Starting distally at Strickland's cardinal line in line with the fourth ray extending proximally distal to the wrist crease centered over the carpal tunnel. Sharp scalpel incision was made through skin and subcutaneous tissue. Self-retaining retractor was placed and the palmar fascia was identified. This was then split longitudinally and direct visualization of the transverse carpal ligament was then made. I then utilizing scalpel feathered through the transverse carpal ligament until I entered the floor of the transverse carpal tunnel ligament into the carpal tunnel. Next I switched to dissection scissors and completed my release of the transverse carpal ligament distally with care to protect the recurrent motor branch. I completely released into the palmar fat and until no entrapment was noted distally. Care was made to protect the superficial palmar arch during my distal dissection. Next I utilized a nasal speculum placed on top of the transverse carpal ligament and utilize this to retract the subcutaneous fat and tissue and under direct loupe magnification was able to identify the transverse carpal ligament. Next I then protected the contents of the carpal tunnel and subsequently utilizing dissection scissors under loupe magnification completely released the transverse carpal ligament proximally into the antebrachial fascia. Care was made to protect the palmar cutaneous branch by keeping my scissors curved ulnarly. Once completely released, I then placed my Novelty and had appropriate decompression of the carpal tunnel proximally as well as distally. I then inspected the contents of the carpal tunnel which showed an hourglass shape of the median nerve showing its compression. No masses were noted. Tendons appeared healthy. Wound was then thoroughly irrigated. Tourniquet deflated. Hemostasis satisfactory with bipolar electrocautery. I then closed the incision with interrupted nylon stitches. Xeroform 4 x 4's and a bulky soft dressing was applied. Patient was then awakened from anesthesia and taken to PACU in stable condition. Patient tolerated procedure without complications. Disposition: Patient taken to PACU in stable condition recovering well. Dressing clean dry and intact. Patient will receive appropriate discharge instructions as well as pain medication postoperatively. Patient to follow-up with me in the office in 2 weeks. They understand they may be weightbearing as tolerated to the right and left hand, limit heavy lifting. Patient should keep incision clean dry and intact. Patient understands if any questions or concerns may contact the office.
--- NOTE | 2025-05-28 15:34 | ANE.PACU2 ---
Inpatient post-anesthesia follow up: Airway intact: Yes Vital signs: Temperature 98.4 F Pulse Rate 68 Respiratory Rate 16 Blood Pressure 122/64 Pulse Oximetry 100 Oxygen Delivery Me thod Room Air Oxygen Flow Rate Fraction of Inspir ed Oxygen Hydration adequate: Yes Nausea and vomiting: No Pain level: 1 Mental status: Baseline
== END 2025-05-28 13:00 | disposition home or self-care (01) ==
PROVIDERS: PCP Family Medicine; Visit Provider Student in an Organized Health Care Education/Training Program
PROC: (CPT 64721; principal; 2025-05-28 08:55)
DX: G56.03 Carpal tunnel syndrome, bilateral upper limbs (principal); Z86.14 Personal history of Methicillin resistant Staphylococcus aureus infection; Z85.3 Personal history of malignant neoplasm of breast; E07.9 Disorder of thyroid, unspecified; Z90.13 Acquired absence of bilateral breasts and nipples; G47.30 Sleep apnea, unspecified; F41.8 Other specified anxiety disorders
CPT/HCPCS: 64721; J0131; J1100; J1885; J2250; J2405; J2704; J2795; J3010; J3490; J7030; J9999

== ENCOUNTER → 2025-06-03 14:04 | Outpatient (BNVA) | payer OTHER, SELFPAY | PROVIDERS: PCP Family Medicine; Visit Provider Family Medicine | DX: Z01.818 Encounter for other preprocedural examination (principal) | CPT/HCPCS: 80053; 85007; 85027; 85610; 85730 ==

== ENCOUNTER 2025-06-05 08:01 | Outpatient (CLI) | payer OTHER, SELFPAY ==
--- NOTE | 2025-06-05 08:15 | CT_ITS ---
WS: [id number] CT chest w con* [id number] HISTORY: Lung nodule TECHNIQUE: Axial imaging performed through the thorax. Coronal and sagittal reformats are submitted. All CT scans at [facility] use at least one of these dose optimization techniques: automated exposure control; mA and/or kV adjustment per patient size (includes targeted exams where dose is matched to clinical indication); or iterative reconstruction. CONTRAST: Omnipaque 350; 100 mL IV. DLP: 428.41 mGy.cm COMPARISON: 02/27/2025 Lungs and central airway: Normally aerated lungs. There is mild interstitial thickening. Areas of groundglass attenuation previously described in the RIGHT upper and LEFT lower lobes have resolved. Calcified 5 mm granuloma RIGHT middle lobe. No new or enlarging pulmonary nodule or mass. There are a few very small micronodules. No dominant nodule. Previously described nodules are not definitely identified. There is mild biapical pleural thickening, LEFT greater than RIGHT. Pleura: Normal. No pleural effusion. Heart and pericardium: Normal size heart with no pericardial effusion. Mediastinum and zofia: Small mediastinal and hilar lymph nodes. No adenopathy. Vessels: Mild atherosclerosis aorta. Normal size pulmonary artery and aorta. Chest wall and lower neck: Reidentified is a low-attenuation mass in the inferior RIGHT neck posterior to the inferior thyroid. Mass measures 1.8 x 2.4 cm and has a lucent center. This was also described by ultrasound. This is contacting the thyroid. There is also slight mass effect upon the trachea. Upper abdomen: Diffuse hepatic steatosis. Prior cholecystectomy. Mild cortical thinning LEFT kidney. No adrenal mass. Osseous structures: Very mild compression deformity/Schmorl's node superior endplate of T11. Degenerative changes at the glenohumeral joints. Prior anterior cervical fusion. CT/CT chest w con* [id number] IMPRESSION: 1. Mild interstitial lung disease. 2. No enlarging or new pulmonary mass or nodule. Scattered micronodules. 3. Resolved groundglass attenuation RIGHT upper and LEFT lower lobes. 4. Bilateral mastectomies. 5. Reidentified is a well-circumscribed nodule posterior and inferior to the R IGHT thyroid. This nodule is new since 2017. This nodule was probably present o n the study of 03/22/2020 but smaller in size measuring 1.4 cm. Due to its posit ion consider thyroid nodule versus parathyroid adenoma. Recent ultrasound did i dentify the nodule along the inferior RIGHT thyroid.
[2025-06-05] MEDS: iohexol 350 mg/mL 500 mL Btl (per mL) IV (08:17)
== END 2025-06-05 08:02 | disposition home or self-care (01) ==
PROVIDERS: PCP Family Medicine; Visit Provider Family Medicine
DX: R91.1 Solitary pulmonary nodule (principal); J84.9 Interstitial pulmonary disease, unspecified; Z90.13 Acquired absence of bilateral breasts and nipples; E04.1 Nontoxic single thyroid nodule; J84.10 Pulmonary fibrosis, unspecified; J92.9 Pleural plaque without asbestos; I70.0 Atherosclerosis of aorta; K76.0 Fatty (change of) liver, not elsewhere classified; Z90.49 Acquired absence of other specified parts of digestive tract; N28.89 Other specified disorders of kidney and ureter; M51.44 Schmorl's nodes, thoracic region; M19.012 Primary osteoarthritis, left shoulder; M19.011 Primary osteoarthritis, right shoulder; M43.22 Fusion of spine, cervical region
CPT/HCPCS: 71260